=== PATIENT | female | born 1985 | race Hispanic/Latino ===

== ENCOUNTER 2023-07-30 07:50 | Emergency (ER) | payer MEDICAID, SELFPAY ==
[2023-07-30] VITALS (9 sets, daily range): BP systolic 123–176; BP diastolic 65–93; PULSE 68–72
--- NOTE | 2023-07-30 10:23 | ED.GENMED ---
History of Present Illness
General
Chief Complaint: Chest Pain
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
Exam Limitations: none
Time Seen by Provider: 07/30/23 09:21
Nursing documentation reviewed up to this point in time: agreed with
Travel History
Have you had any contact with someone who has COVID-19?: No
Do you have any symptoms of coronavirus? Fever > 100 degrees, chills, cough, shortness of breath, sore throat, loss of taste or smell, muscle aches, or headache?: No
History of Present Illness
History of Present Illness:
Patient is a 37-year-old female with a past medical history of hypertension, hyperlipidemia, renal failure on hemodialysis, hypothyroidism and anxiety who presents with 1 day of dizziness, intermittent chest pain, shortness of breath, chills and
fatigue. Patient reports that currently she has no chest pain. She denies any chest pain when she takes a deep breath. She denies a history of PE and DVT. She denies cough and fever. She reports her dizziness feels like she wants to faint,
however, she denies vision changes, focal weakness and numbness. Patient also reports that dizziness feels like a spinning sensation. She denies ear pain. She reports the chest pain comes and goes and brief episodes and it does not seem to be
associated with exertion or eating. She reports she had a dialysis treatment yesterday. She denies nausea, vomiting and diarrhea.
Past History
Past History
ED Past Medical History: GERD, HTN, IDDM, Renal failure (End stage renal disease, dialysis dependent) and Hypothyroidism
ED Past Surgical History: Urological
Social History
Tobacco: Non-smoker
Alcohol: None
Drug: None
Personal:
Living: with family
Employment: Not employed
Family History
Family History: Other (Parents are diabetics)
Review of Systems
Review of Systems
Allergies reviewed?: Yes
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
All Other Systems: ROS reviewed and negative except as documented in HPI and ROS
Constitutional: Reports fatigue and chills; Denies fever
EENT: Reports no symptoms
Respiratory: Reports trouble breathing
Cardiac: Reports chest pain
ABD/GI: Reports no symptoms
: Reports no symptoms
Musculoskeletal: Reports no symptoms
Skin: Reports no symptoms
Neurological: Reports dizzy; Denies headache
Endocrine: Reports no symptoms
Hematologic/Lymphatic: Reports no symptoms
Psychiatric: Reports no symptoms
Phy Exam
Physical Exam
Physical Exam:
Physical Exam
General: no apparent distress, not acutely ill. Comfortable appearing
Neck: supple. no meningeal signs. normal psoterior pharynx
Heart: s1/s2 regular rate and rhythm,
Lungs: no acute respiratory distress. clear bilaterally. Speaks in full sentences. Breathing comfortably. No crackles or wheezing
Abdomen: normal bowel sounds. not tender. no CVAT
Neuro: alert and orientedx3. no focal neurological deficits, 5 out of 5 strength in all extremities. Normal [id number]. Extraocular muscles intact. PERRL
Skin: no rash. Left upper extremity dialysis fistula with good thrill without overlying skin erythema or tenderness
Psychiatric: well kept. interactive and cooperative
Extremities: no edema. no calf tenderness. negative homans. good distal pulses
Scores
Heart Score for Chest Pain Patients
STEMI patient?: No
History: Slightly or Non-Suspicious
ECG: Nonspecific Repolarization
Age: </= 45 years
Risk Factors: >/= 3 Risk Factors or History of CAD
Troponin: </= Normal Limit
Heart Score for Chest Pain Patients: 3
Heart Score Risk: 2.5% MACE over next 6 weeks
Course
Orders/Labs/Results
Orders:
Orders
07/30/23 09:49
Orthostatic VS- Treatment ONCE
Test Result ONCE
07/30/23 10:12
COVID-19 Antigen Urgent
Source: Nasal Swab
Influenza A+B Rapid Molecular Urgent
LIZBETH Source: Nasal Swab
Specimen Description:
07/30/23 10:28
Electrocardiogram (*1) Urgent
Reason for Study: Chest Pain
EKG- Treatment ONCE
07/30/23 10:38
Complete Blood Count/With Diff Urgent
Comprehensive Metabolic Panel Urgent
HCG, Serum Qualitative Screen Urgent
Troponin I Urgent
07/30/23 11:01
Urinalysis Reflex To Culture Urgent
Date Specimen was Collected: 07/30/23
Time Specimen was Collected: 10:40
Urine Microscopic Reflex Cult Urgent
07/30/23 11:36
CR Chest - 2 Views Urgent
Comment:
Reason For Exam: CP
Abnormal Lab Results
07/30/23 07/30/23
10:38 11:01
RBC 3.90 L 10^6/uL
(4.20-5.40)
Hgb 11.6 L g/dL
(12.0-16.0)
Hct 34.8 L %
(37.0-47.0)
RDW 15.8 H %
(11.5-14.5)
MPV 11.7 H fL
(7.4-10.4)
Abs Immat Gran (auto) 0.1 H 10^3/uL
(0-0.05)
Absolute Eos (auto) 1.0 H 10^3/uL
(0-0.7)
Immature Gran % 0.6 H %
(0-0.5)
Lymphocytes % 15.2 L %
(20.5-51.1)
Eosinophils % 11.3 H %
(0-6)
Sodium 134 L mmol/L
(135-145)
Creatinine 5.2 H* mg/dL
(0.6-1.0)
Glucose 131 H mg/dl
(70-99)
AST 44 H U/L
(14-36)
ALT 43 H U/L
(0-35)
Alkaline Phosphatase 140 H U/L
(38-126)
Leukocyte Esterase Rfl Trace A
(Negative)
Urine Bacteria (Reflex) Few A
(Negative)
Urine Glucose Trace A
(Negative)
Urine Albumin (Reflex) 3+ A
(Neg - Trace)
07/30/23 10:38
07/30/23 10:38
Vital Signs
Initial and Last Documented VS:
Initial Vital Signs
Temp Pulse Resp BP Pulse Ox
98.6 F 70 20 123/65 100
07/30/23 08:02 07/30/23 08:02 07/30/23 08:02 07/30/23 08:02 07/30/23 08:02
Last Documented Vital Signs
Temp Pulse Resp BP Pulse Ox
98.4 F 74 12 176/93 100
07/30/23 13:42 07/30/23 13:00 07/30/23 10:15 07/30/23 13:00 07/30/23 13:00
MDM/Problems Addressed
Differential Diagnosis Includes:
Cardiac arrhythmia, dehydration, orthostatic hypotension, anemia, acute coronary syndrome, PE
MDM/Problems Addressed:
Patient presents with acute intermittent chest pain, shortness of breath and dizziness
Chronic conditions affecting care: HTN and Kidney disease
*Radiology
Radiology exam reviewed: preliminary read by ED provider (Chest x-ray read by me. No acute disease)
*Pulse Oximetry
Patient hypoxic: no
*EKG
Interpreted by ED Provider?: Yes
Interpretation: abnormal
Comparison EKG: no changes
Rate: normal
Rhythm: sinus
[place]: normal axis
QRS Pattern: left vent hypertrophy
Ischemia: no ischemia
*Collection Systems Administrator Interpretation
Rate: normal
Interpretation: normal
Rhythm: sinus
*Critical Care Note
Total Time (30-74mins, 75-104mins- exclusive of procedures): Not Applicable
Data Reviewed
Review of Other/Old Records Reveals: Testing (Cardiac echo normal from 05/2023) and Discharge Summary (Discharge summary reviewed from May 2023 when patient was admitted with dizziness and vision changes thought to be related to [id number]
blood pressure)
Source: patient and family
Patient Management
Social determinants of health affecting care: Living situation and Strong social support
Update Note
Update Note:
1:30pm patient resting comfortably for hours. No fever. No elevated white blood cell count to suggest infection. No dysuria or abdominal pain to suggest UTI. Neurological exam is normal and there is no sign of stroke. I suspect patient's blood
pressure is now elevated due to not taking her medication. Patient encouraged to take her blood pressure medication when she gets home. Patient has not had chest pain for hours and her troponin is negative, therefore, she is very unlikely to have
acute coronary syndrome. Given she has no chest pain or pleuritic chest pain, it is doubtful she has a PE.
ED Attending Note
-
Portions of this chart may have been created with voice recognition software.� Occasional wrong word or��sound alike� substitutions may have occurred due to the inherent limitations of voice recognition software.
Discharge Plan
Departure
Patient Disposition: Home (Routine Discharge)
Date of Disposition: 07/30/23
Time of Disposition: 13:23
Patient with high blood pressure during this ER visit?: Yes
Condition: Good
Covid-19: Not Applicable
Discharge Problem:
Chest pain in adult
Instructions: Chest Pain PCP Follow Up, BLOOD PRESSURE
Prescriptions:
No Action
pantoprazole 20 MG tablet,delayed release (DR/EC)
20 mg PO DAILY
sevelamer carbonate 800 mg Tablet
800 - 2,400 mg PO AC
hydroxyzine HCl 25 MG tablet
25 mg PO QIDPRN PRN (Reason: anxiety)
atenolol 50 mg Tablet
100 mg PO DAILY
levothyroxine [Synthroid] 88 mcg Tablet
88 mcg PO DAILY
multivitamin [Daily-Harjeet] Tablet
1 tab PO DAILY
cholecalciferol (vitamin D3) 50 mcg (2,000 unit) Capsule
50 mcg PO DAILY
nifedipine 30 mg Tablet Extended Release
60 mg PO BID Qty: 120 0RF
Referrals:
UNKNOWN - PT DOES,NOT KNOW [Family Provider] -
Interventions
Interventions:
*Risk Screen - Suicide Last Done: 07/30/23 13:41
*General Assessment Last Done: 07/30/23 09:42
*Neglect/Abuse Screening Last Done: 07/30/23 13:41
ED- Fall Risk Assessment Last Done: 07/30/23 10:18
*ED COVID-19 Vaccine History Last Done: 07/30/23 09:42
*Nursing Disposition Last Done: 07/30/23 13:42
ED- Cardiac Assessment Last Done: 07/30/23 10:18
Discharge Date and Time
Discharge Date/Time: 07/30/23 13:42
Print Language: LATVIAN
[2023-07-30 10:47] LABS: % Basophils 1.6 % (0-2); % Eosinophils 11.3 % (0-6); % Immature Granulocytes 0.6 % (0-0.5); % Lymphocytes 15.2 % (20.5-51.1); % Monocytes 5.3 % (1.7-9.3); Absolute Basophils 0.1 10^3/uL (0-0.2); Absolute Immature Granulocytes 0.1 10^3/uL (0-0.05); Absolute Lymphocytes 1.3 10^3/uL (1.2-3.4); Absolute Monocytes 0.5 10^3/uL (0.1-0.6); Absolute Neutrophils 5.8 10^3/uL (1.4-6.5); Hematocrit 34.8 % (37.0-47.0); Hemoglobin 11.6 g/dL (12.0-16.0); Mean Corp Hgb Conc. 33.3 g/dL (33.0-37.0); Mean Corpuscular Hgb 29.7 pg (27.0-31.0); Mean Corpuscular Volume 89.2 fL (81.0-99.0); Mean Platelet Volume 11.7 fL (7.4-10.4); Nucleated Red Blood Cells % 0.2 %; Platelet Count 175 10^3/uL (130-400); Red Cell Dist. Width 15.8 % (11.5-14.5); White Blood Cell Count 8.8 10^3/uL (4.8-10.8)
[2023-07-30 11:11] LABS: Urine Albumin 3+ (Neg - Trace); Urine Bilirubin Negative (Negative); Urine Character Clear (Clear); Urine Color Yellow; Urine Glucose Trace (Negative); Urine Ketone Negative (Negative); Urine Leukocyte Trace (Negative); Urine Nitrite Negative (Negative); Urine Occult Blood Negative (Negative); Urine Urobilinogen Negative (Neg - 1+)
[2023-07-30 11:12] LABS: COVID-19 Antigen Negative (Negative)
[2023-07-30 11:19] LABS: ALT (SGPT) 43 U/L (0-35); AST (SGOT) 44 U/L (14-36); Albumin 4.4 g/dl (3.5-5.0); Alkaline Phosphatase 140 U/L (38-126); Blood Urea Nitrogen 17 mg/dl (7-17); Calcium 9.4 mg/dl (8.4-10.2); Carbon Dioxide 26 mmol/L (22-30); Chloride 99 mmol/L (98-107); Glucose 131 mg/dl (70-99); Potassium 5.1 mmol/L (3.5-5.1); Sodium 134 mmol/L (135-145); Total Bilirubin 0.7 mg/dl (0.2-1.3); Total Protein 7.1 g/dl (6.3-8.2); eGFR 10.29
[2023-07-30 11:24] LABS: Urine Red Blood Cell 0-2 /HPF (0-2); Urine Squamous Cell 16-20 /LPF (Few)
[2023-07-30 11:24] LABS: HCG, Serum Qualitative Screen Negative
[2023-07-30 11:25] LABS: Urine Bacteria Few (Negative)
[2023-07-30 11:26] LABS: Troponin I < 0.012 ng/ml
== END 2023-07-30 13:42 | disposition home or self-care (01) ==
LOC: EMR 07:50
PROVIDERS: EMERGENCY PHYSICIAN Emergency Medicine
DX: R07.89 Other chest pain (principal); R42 Dizziness and giddiness; R06.02 Shortness of breath; R53.83 Other fatigue; R68.83 Chills (without fever); Z11.52 Encounter for screening for COVID-19; I12.0 Hypertensive chronic kidney disease with stage 5 chronic kidney disease or end stage renal disease; N18.6 End stage renal disease; Z99.2 Dependence on renal dialysis; E11.22 Type 2 diabetes mellitus with diabetic chronic kidney disease; E78.5 Hyperlipidemia, unspecified; E03.9 Hypothyroidism, unspecified; K21.9 Gastro-esophageal reflux disease without esophagitis; F41.9 Anxiety disorder, unspecified; Z79.4 Long term (current) use of insulin; Z90.5 Acquired absence of kidney
CPT/HCPCS: 99283; 71046; 80053; 81003; 81015; 84484; 84703; 85025; 87502; 87811; 93005

== ENCOUNTER 2023-09-19 17:20 | Emergency (ER) | payer MEDICAID, SELFPAY ==
[2023-09-19] VITALS (9 sets, daily range): BP systolic 109–224; BP diastolic 64–100
[2023-09-19 18:50] LABS: % Basophils 1.2 % (0-2); % Eosinophils 11.9 % (0-6); % Immature Granulocytes 0.2 % (0-0.5); % Lymphocytes 14.8 % (20.5-51.1); % Monocytes 5.4 % (1.7-9.3); % Neutrophils 66.5 % (42.2-75.2); Absolute Basophils 0.1 10^3/uL (0-0.2); Absolute Eosinophils 0.7 10^3/uL (0-0.7); Absolute Lymphocytes 0.9 10^3/uL (1.2-3.4); Absolute Monocytes 0.3 10^3/uL (0.1-0.6); Hematocrit 36.1 % (37.0-47.0); Hemoglobin 12.2 g/dL (12.0-16.0); Mean Corp Hgb Conc. 33.8 g/dL (33.0-37.0); Mean Corpuscular Hgb 29.8 pg (27.0-31.0); Mean Corpuscular Volume 88.3 fL (81.0-99.0); Mean Platelet Volume 11.2 fL (7.4-10.4); Nucleated Red Blood Cells % 0 %; Platelet Count 120 10^3/uL (130-400); Red Blood Cell Count 4.09 10^6/uL (4.20-5.40); White Blood Cell Count 6.1 10^3/uL (4.8-10.8)
[2023-09-19 19:00] LABS: ALT (SGPT) 28 U/L (0-35); AST (SGOT) 40 U/L (14-36); Albumin 4.5 g/dl (3.5-5.0); Alkaline Phosphatase 118 U/L (38-126); Blood Urea Nitrogen 19 mg/dl (7-17); Calcium 9.1 mg/dl (8.4-10.2); Carbon Dioxide 29 mmol/L (22-30); Chloride 96 mmol/L (98-107); Glucose 136 mg/dl (70-99); Sodium 135 mmol/L (135-145); Total Bilirubin 0.9 mg/dl (0.2-1.3); Total Protein 7.5 g/dl (6.3-8.2); eGFR 14.53
[2023-09-19] MEDS: PROCARDIA XL (EXTENDED RELEASE) 60 MG PO (19:35)
[2023-09-19] MEDS: CATAPRES 0.200000000000000011 MG PO (20:54)
[2023-09-19] MEDS: APRESOLINE 5 MG IV (20:55)
--- NOTE | 2023-09-19 22:58 | ED.GENMED ---
History of Present Illness
General
Chief Complaint: Blood Pressure Problem
Source: patient and family (daughter interpreting.)
Exam Limitations: none
Time Seen by Provider: 09/19/23 18:07
Travel History
Have you had any contact with someone who has COVID-19?: No
Do you have any symptoms of coronavirus? Fever > 100 degrees, chills, cough, shortness of breath, sore throat, loss of taste or smell, muscle aches, or headache?: No
History of Present Illness
History of Present Illness:
Patient to ED for high blood pressure. SHe has been seen in the ED multiple times in the past for this. Currently she is taking Atenolol 100mg in the AM, nifedipine 60mg bid. SHe is a dialysis patient. Today her BP was running high all day at
dialysis. SHe was given 0.1mg clonidine without improvement. Sent to ED for eval. On arrival she is awake and alert, reports headache. Denies any cp/pressure, SOB.
Past History
Past History
ED Past Medical History: GERD, HTN, IDDM, Renal failure (End stage renal disease, dialysis dependent) and Hypothyroidism
ED Past Surgical History: Urological (left nephrectomy)
Social History
Tobacco: Non-smoker
Alcohol: None
Drug: None
Personal:
Living: with family
Employment: Not employed
Family History
Family History: Other (Parents are diabetics)
Review of Systems
Review of Systems
Allergies reviewed?: Yes
All Other Systems: ROS reviewed and negative except as documented in HPI and ROS
Constitutional: Reports no symptoms
EENT: Reports no symptoms
Respiratory: Reports no symptoms
Cardiac: Reports other (hypertension)
ABD/GI: Reports no symptoms
: Reports no symptoms
Musculoskeletal: Reports no symptoms
Skin: Reports no symptoms
Neurological: Reports headache
Psychiatric: Reports no symptoms
Phy Exam
General Physical Exam
General Presentation: well appearing and no apparent distress
General age: appears stated age
General Skin: warm and dry
General Habitus: normal
General Mental: alert
General Hydration: appears well hydrated
Cardiovascular Exam
Cardiovascular Exam: regular rate/rhythm and no edema
Pulmonary Exam
Pulmonary Exam: lungs clear and no respiratory distress
Gastrointestinal Exam
Gastrointestinal Exam: normal bowel sounds, non tender, soft and no organomegaly
Musculoskeletal Exam
Musculoskeletal Exam: full ROM and neuro vasc intact
Skin Exam
Skin Exam: normal color, warm/dry and no rash
Psychiatric Exam
Psychiatric Exam: normal mood/affect
Course
Orders/Labs/Results
Orders:
Orders
09/19/23 17:25
Electrocardiogram (*1) Urgent
Reason for Study: Hypertension, Benign
EKG- Treatment ONCE
09/19/23 18:17
Cardiac Monitoring- Treatment ONCE
09/19/23 18:26
NIFEdipine EXTENDED RELEASE [Procardia Xl (Extended Release)] 60 mg PO NOW STA
09/19/23 18:34
Complete Blood Count/With Diff Urgent
Comprehensive Metabolic Panel Urgent
09/19/23 20:31
Clonidine [Catapres] 0.2 mg PO NOW STA
09/19/23 20:33
HydrALAZINE [Apresoline] 5 mg IV NOW STA
Abnormal Lab Results
09/19/23
18:34
RBC 4.09 L 10^6/uL
(4.20-5.40)
Hct 36.1 L %
(37.0-47.0)
RDW 15.0 H %
(11.5-14.5)
Plt Count 120 L 10^3/uL
(130-400)
MPV 11.2 H fL
(7.4-10.4)
Absolute Lymphs (auto) 0.9 L 10^3/uL
(1.2-3.4)
Lymphocytes % 14.8 L %
(20.5-51.1)
Eosinophils % 11.9 H %
(0-6)
Chloride 96 L mmol/L
(98-107)
BUN 19 H mg/dl
(7-17)
Creatinine 3.9 H mg/dL
(0.6-1.0)
Glucose 136 H mg/dl
(70-99)
AST 40 H U/L
(14-36)
09/19/23 18:34
09/19/23 18:34
Vital Signs
Initial and Last Documented VS:
Initial Vital Signs
Temp Pulse Resp BP Pulse Ox
98.3 F 67 18 210/100 100
09/19/23 17:21 09/19/23 17:21 09/19/23 17:21 09/19/23 17:21 09/19/23 17:21
Last Documented Vital Signs
Temp Pulse Resp BP Pulse Ox
98.3 F 69 15 111/64 100
09/19/23 17:21 09/19/23 21:37 09/19/23 21:37 09/19/23 22:00 09/19/23 21:37
*Critical Care Note
Total Time (30-74mins, 75-104mins- exclusive of procedures): Not Applicable
Update Note
Update Note:
Given PM dose of nifedipine on arrival to ED. No change in BP. Given additional 0.2mg catapress po, 5mg hydralazine IV with return to normotensive readings. Discharge BP 112/68, HR 70. Headache resolved. Spoke with her daughter and she will
follow up with nephrolology in the AM. Given instructions on s/s to return to ED and she is agreeable to plan.
ED Attending Note
-
Portions of this chart may have been created with voice recognition software.� Occasional wrong word or��sound alike� substitutions may have occurred due to the inherent limitations of voice recognition software.
Discharge Plan
Departure
Patient Disposition: Home (Routine Discharge)
Date of Disposition: 09/19/23
Time of Disposition: 22:05
Patient with high blood pressure during this ER visit?: No
Condition: Good
Covid-19: Not Applicable
Discharge Problem:
Hypertension
Instructions: High Blood Pressure (DC)
Prescriptions:
No Action
pantoprazole 20 MG tablet,delayed release (DR/EC)
20 mg PO DAILY
sevelamer carbonate 800 mg Tablet
800 - 2,400 mg PO AC
hydroxyzine HCl 25 MG tablet
25 mg PO QIDPRN PRN (Reason: anxiety)
atenolol 50 mg Tablet
100 mg PO DAILY
levothyroxine [Synthroid] 88 mcg Tablet
88 mcg PO DAILY
multivitamin [Daily-Harjeet] Tablet
1 tab PO DAILY
cholecalciferol (vitamin D3) 50 mcg (2,000 unit) Capsule
50 mcg PO DAILY
nifedipine 30 mg Tablet Extended Release
60 mg PO BID Qty: 120 0RF
Referrals:
Susannah Emerson PA [Family Provider] - Tomorrow
Activity Restrictions/Additional Instructions:
Return to the emergency department immediately for any changes in/worsening of your symptoms.
Interventions
Interventions:
*Risk Screen - Suicide Last Done: 09/19/23 17:24
*General Assessment Last Done: 09/19/23 17:24
*Neglect/Abuse Screening Last Done: 09/19/23 17:24
ED- Fall Risk Assessment Last Done: 09/19/23 22:05
*ED COVID-19 Vaccine History Last Done: 09/19/23 22:05
*Nursing Disposition Last Done: 09/19/23 22:29
ED- Cardiac Assessment Last Done: 09/19/23 18:56
ED- Neurological Assessment Last Done: 09/19/23 18:56
ED- Pulmonary Assessment Last Done: 09/19/23 18:56
Discharge Date and Time
Discharge Date/Time: 09/19/23 22:10
== END 2023-09-19 22:10 | disposition home or self-care (01) ==
LOC: EMR 17:20
PROVIDERS: Nurse Practitioner; EMERGENCY PHYSICIAN Emergency Medicine; FAMILY PHYSICIAN Physician Assistant
DX: I12.0 Hypertensive chronic kidney disease with stage 5 chronic kidney disease or end stage renal disease (principal); N18.6 End stage renal disease; Z99.2 Dependence on renal dialysis
CPT/HCPCS: 99284; 96374; 80053; 85025; 93005

== ENCOUNTER 2023-09-23 16:36 | Emergency (ER) | payer MEDICAID, SELFPAY ==
[2023-09-23 16:38] VITALS: BP 153/78
[2023-09-23 17:38] VITALS: BMI 25.2
[2023-09-23 18:02] VITALS: BP 172/85
[2023-09-23 18:08] LABS: % Basophils 1.7 % (0-2); % Eosinophils 9.3 % (0-6); % Immature Granulocytes 0.3 % (0-0.5); % Lymphocytes 20.6 % (20.5-51.1); % Monocytes 7.9 % (1.7-9.3); % Neutrophils 60.2 % (42.2-75.2); Absolute Basophils 0.1 10^3/uL (0-0.2); Absolute Eosinophils 0.7 10^3/uL (0-0.7); Absolute Lymphocytes 1.4 10^3/uL (1.2-3.4); Absolute Monocytes 0.6 10^3/uL (0.1-0.6); Absolute Neutrophils 4.2 10^3/uL (1.4-6.5); Hematocrit 31.7 % (37.0-47.0); Hemoglobin 10.7 g/dL (12.0-16.0); Mean Corp Hgb Conc. 33.8 g/dL (33.0-37.0); Mean Corpuscular Hgb 29.5 pg (27.0-31.0); Mean Corpuscular Volume 87.3 fL (81.0-99.0); Mean Platelet Volume 11.5 fL (7.4-10.4); Nucleated Red Blood Cells % 0 %; Platelet Count 142 10^3/uL (130-400); Red Blood Cell Count 3.63 10^6/uL (4.20-5.40); Red Cell Dist. Width 14.7 % (11.5-14.5)
[2023-09-23 18:21] LABS: ALT (SGPT) 28 U/L (0-35); AST (SGOT) 39 U/L (14-36); Albumin 4.6 g/dl (3.5-5.0); Alkaline Phosphatase 113 U/L (38-126); Blood Urea Nitrogen 9 mg/dl (7-17); Carbon Dioxide 29 mmol/L (22-30); Chloride 94 mmol/L (98-107); Estimated Creatinine Clearance 20 ml/min; Glucose 105 mg/dl (70-99); Sodium 134 mmol/L (135-145); Total Bilirubin 0.8 mg/dl (0.2-1.3); Total Protein 7.2 g/dl (6.3-8.2); eGFR 20.74
[2023-09-23 18:32] LABS: Troponin I < 0.012 ng/ml
--- NOTE | 2023-09-23 18:37 | ED.GENMED ---
History of Present Illness
General
Chief Complaint: Chest Pain
Source: patient and family
Exam Limitations: none
Time Seen by Provider: 09/23/23 17:52
Nursing documentation reviewed up to this point in time: agreed with
Travel History
Have you had any contact with someone who has COVID-19?: No
Do you have any symptoms of coronavirus? Fever > 100 degrees, chills, cough, shortness of breath, sore throat, loss of taste or smell, muscle aches, or headache?: Yes
Symptoms:: chills, headache
History of Present Illness
History of Present Illness:
37-year-old female presents emergency department due to nausea, sweats, headaches, midsternal chest pain and epigastric pain since yesterday. No fevers.
Past History
Past History
ED Past Medical History: GERD, HTN, IDDM, Renal failure (End stage renal disease, dialysis dependent) and Hypothyroidism
ED Past Surgical History: Urological (left nephrectomy)
Social History
Tobacco: Non-smoker
Alcohol: None
Drug: None
Personal:
Living: with family
Employment: Not employed
Family History
Family History: Other (Parents are diabetics)
Review of Systems
Review of Systems
Allergies reviewed?: Yes
All Other Systems: Not applicable
Constitutional: Reports no symptoms
EENT: Reports no symptoms
Respiratory: Reports no symptoms
Cardiac: Reports chest pain
ABD/GI: Reports abdominal pain and nausea
: Reports no symptoms
Musculoskeletal: Reports no symptoms
Skin: Reports no symptoms
Neurological: Reports no symptoms
Endocrine: Reports no symptoms
Hematologic/Lymphatic: Reports no symptoms
Psychiatric: Reports no symptoms
Phy Exam
Physical Exam
Physical Exam:
Physical Exam
General: no apparent distress, not acutely ill
Neck: supple. no meningeal signs. normal posterior pharynx
Heart: s1/s2 regular rate and rhythm, no murmur. equal radial
pulses.
HEENT: Pupils equal round reactive to light, EOMI
Lungs: no acute respiratory distress. clear bilaterally
Abdomen: normal bowel sounds. Mild epigastric tenderness. No CVAT
Neuro: alert and oriented. no focal neurological deficits cranial nerves II through XII intact
Skin: no rash
Psychiatric: well kept. interactive and cooperative
Extremities: no edema. no calf tenderness. negative homans. good distal pulses
Scores
Heart Score for Chest Pain Patients
STEMI patient?: No
History: Slightly or Non-Suspicious
ECG: Normal
Age: >45 - <65 years
Risk Factors: No Risk Factors
Troponin: </= Normal Limit
Heart Score for Chest Pain Patients: 1
Heart Score Risk: 2.5% MACE over next 6 weeks
Course
Orders/Labs/Results
Orders:
Orders
09/23/23 16:37
Electrocardiogram (*1) Urgent
Reason for Study: Chest Pain
09/23/23 16:38
EKG- Treatment ONCE
09/23/23 18:01
Complete Blood Count/With Diff Urgent
Comprehensive Metabolic Panel Urgent
Lipase Urgent
Comment: ADDON
Troponin I Urgent
09/23/23 18:35
Add On- LAB Urgent
Tests Added?: lipase
09/23/23 18:36
US Abdomen Complete/Upper Urgent
Comment:
Reason For Exam: epigastric pain
09/23/23 19:10
Morphine Sulfate 4 mg IV NOW STA
Ondansetron Injectable [Zofran] 4 mg IV NOW STA
09/23/23 19:16
UA Reflex to Culture [Urinalysis Reflex To Culture] Urgent
Date Specimen was Collected: 09/23/23
Time Specimen was Collected: 19:13
Urine Microscopic Reflex Cult Urgent
09/23/23 21:29
Troponin I Urgent
Abnormal Lab Results
09/23/23 09/23/23
18:01 19:16
RBC 3.63 L 10^6/uL
(4.20-5.40)
Hgb 10.7 L g/dL
(12.0-16.0)
Hct 31.7 L %
(37.0-47.0)
RDW 14.7 H %
(11.5-14.5)
MPV 11.5 H fL
(7.4-10.4)
Eosinophils % 9.3 H %
(0-6)
Sodium 134 L mmol/L
(135-145)
Chloride 94 L mmol/L
(98-107)
Creatinine 2.9 H mg/dL
(0.6-1.0)
Glucose 105 H mg/dl
(70-99)
AST 39 H U/L
(14-36)
Leukocyte Esterase Rfl Trace A
(Negative)
Urine Bacteria (Reflex) Few A
(Negative)
Urine Glucose 1+ A
(Negative)
Urine Albumin (Reflex) 3+ A
(Neg - Trace)
09/23/23 18:01
09/23/23 18:01
Vital Signs
Initial and Last Documented VS:
Initial Vital Signs
Temp Pulse Resp BP Pulse Ox
98.7 F 76 20 153/78 100
09/23/23 16:38 09/23/23 16:38 09/23/23 16:38 09/23/23 16:38 09/23/23 16:38
Last Documented Vital Signs
Temp Pulse Resp BP Pulse Ox
98.7 F 77 15 186/90 99
09/23/23 16:38 09/23/23 22:15 09/23/23 22:15 09/23/23 21:00 09/23/23 22:15
MDM/Problems Addressed
Differential Diagnosis Includes:
Cholecystitis, ACS
MDM/Problems Addressed:
37-year-old female with epigastric pain, no signs of AAA, cholecystitis or ACS. Patient feels improved after IV fluids. Possible viral cause. Stable for discharge.
Chronic conditions affecting care: HTN and Kidney disease
Acute Exacerbation and/or Progression of Chronic Illness: HTN and Kidney disease
*Radiology
Radiology exam reviewed: radiology read reviewed (Ultrasound abdomen no acute findings)
*Pulse Oximetry
Patient hypoxic: no
*EKG
Interpreted by ED Provider?: Yes
EKG Intrepretation Date: 09/23/23
EKG Intrepretation Time: 16:39
Interpretation: abnormal
Comparison EKG: no changes
Heart Rate: 77
Rate: normal
Rhythm: sinus
[place]: normal axis
Interval: long QT
QRS Pattern: normal QRS
Ischemia: no ischemia
*Admissions Nurse Interpretation
Rate: Admissions Nurse- N/A
*Critical Care Note
Total Time (30-74mins, 75-104mins- exclusive of procedures): Not Applicable
Patient Management
Social determinants of health affecting care: Living situation
Escalation/DeEscalation of care consider admission/obs:
Admit not indicated
ED Attending Note
-
Portions of this chart may have been created with voice recognition software.� Occasional wrong word or��sound alike� substitutions may have occurred due to the inherent limitations of voice recognition software.
Discharge Plan
Departure
Patient Disposition: Home (Routine Discharge)
Date of Disposition: 09/23/23
Time of Disposition: 22:15
Patient with high blood pressure during this ER visit?: Yes
Condition: Good
Discharge Problem:
Epigastric abdominal pain
Instructions: Abdominal Pain, Adult ED, Chest Pain PCP Follow Up, BLOOD PRESSURE
Prescriptions:
No Action
pantoprazole 20 MG tablet,delayed release (DR/EC)
20 mg PO DAILY
sevelamer carbonate 800 mg Tablet
800 - 2,400 mg PO AC
hydroxyzine HCl 25 MG tablet
25 mg PO QIDPRN PRN (Reason: anxiety)
atenolol 50 mg Tablet
100 mg PO DAILY
levothyroxine [Synthroid] 88 mcg Tablet
88 mcg PO DAILY
multivitamin [Daily-Harjeet] Tablet
1 tab PO DAILY
cholecalciferol (vitamin D3) 50 mcg (2,000 unit) Capsule
50 mcg PO DAILY
nifedipine 30 mg Tablet Extended Release
60 mg PO BID Qty: 120 0RF
Referrals:
Jose Mayo MD [Family Provider] - Call in 1-3 days for appt
Interventions
Interventions:
*Risk Screen - Suicide Last Done: 09/23/23 17:39
*General Assessment Last Done: 09/23/23 17:39
*Neglect/Abuse Screening Last Done: 09/23/23 17:39
ED- Fall Risk Assessment Last Done: 09/23/23 17:54
*ED COVID-19 Vaccine History Last Done: 09/23/23 17:39
*Nursing Disposition Last Done: 09/23/23 22:30
ED- Cardiac Assessment Last Done: 09/23/23 17:54
Discharge Date and Time
Discharge Date/Time: 09/23/23 22:30
[2023-09-23 19:07] VITALS: BP 178/89
[2023-09-23] MEDS: MORPHINE SULFATE 4 MG IV (19:13)
[2023-09-23] MEDS: ZOFRAN 4 MG IV (19:13)
[2023-09-23 19:21] LABS: Lipase 95 U/L (23-300)
[2023-09-23 19:24] LABS: Urine Albumin 3+ (Neg - Trace); Urine Bilirubin Negative (Negative); Urine Character Clear (Clear); Urine Color Yellow; Urine Glucose 1+ (Negative); Urine Ketone Negative (Negative); Urine Leukocyte Trace (Negative); Urine Nitrite Negative (Negative); Urine Occult Blood Negative (Negative); Urine Urobilinogen Negative (Neg - 1+)
[2023-09-23 19:36] LABS: Urine Bacteria Few (Negative); Urine Red Blood Cell 0-2 /HPF (0-2); Urine Squamous Cell >30 /LPF (Few)
[2023-09-23 21:00] VITALS: BP 186/90
[2023-09-23 21:58] LABS: Troponin I < 0.012 ng/ml
== END 2023-09-23 22:30 | disposition home or self-care (01) ==
LOC: EMR 16:36
PROVIDERS: EMERGENCY PHYSICIAN Emergency Medicine; FAMILY PHYSICIAN Family Medicine
DX: R10.13 Epigastric pain (principal); R10.9 Unspecified abdominal pain; R11.0 Nausea; R51.9 Headache, unspecified; R07.2 Precordial pain; R07.9 Chest pain, unspecified; I12.0 Hypertensive chronic kidney disease with stage 5 chronic kidney disease or end stage renal disease; N18.6 End stage renal disease
CPT/HCPCS: 99285; 96374; 96375; 76700; 80053; 81003; 81015; 83690; 84484; 85025; 93005

== ENCOUNTER 2024-01-16 05:19 | Emergency (ER) | payer MEDICAID, SELFPAY ==
[2024-01-16 05:21] VITALS: BP 106/60
[2024-01-16] MEDS: TYLENOL 1000 MG PO (07:04)
--- NOTE | 2024-01-16 07:16 | ED.GENMED ---
History of Present Illness
General
Chief Complaint: Headache
Source: patient and records
Exam Limitations: none
Time Seen by Provider: 01/16/24 06:11
Nursing documentation reviewed up to this point in time: agreed with
History of Present Illness
History of Present Illness:
38-year-old female ESRD Tuesday history of hypertension she has been compliant with her dialysis apparently few hours ago developed headache, cramping in her feet and blurry vision, palpitations, history obtained through nurses notes
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
Past History
Past History
ED Past Medical History: GERD, HTN, IDDM, Renal failure (End stage renal disease, dialysis dependent) and Hypothyroidism
ED Past Surgical History: Urological (left nephrectomy)
Social History
Tobacco: Non-smoker
Alcohol: None
Drug: None
Personal:
Living: with family
Employment: Not employed
Family History
Family History: Other (Parents are diabetics)
Review of Systems
Review of Systems
All Other Systems: Not applicable
Constitutional: Denies fever
EENT: Reports no symptoms
Respiratory: Denies trouble breathing
Cardiac: Reports palpitations
ABD/GI: Reports no symptoms
Musculoskeletal: Reports muscle stiffness
Neurological: Reports headache and other (Blurry vision)
Phy Exam
Physical Exam
Physical Exam:
Physical Exam
General: Chronically ill female nontoxic
Neck: No jaundice
Heart: Regular
Lungs: no acute respiratory distress. clear bilaterally
Abdomen: Not
Neuro: alert and oriented. no focal neurological deficits
Skin: no rash
Psychiatric: Cooperative
Extremities: Fistula left upper extremity positive
Course
Orders/Labs/Results
Orders:
Orders
01/16/24 06:59
Acetaminophen [Tylenol] 1,000 mg PO NOW STA
01/16/24 07:00
Electrocardiogram (*1) Urgent
Reason for Study: Palpitations
EKG- Treatment ONCE
01/16/24 07:21
CT Head W/o Iv Contrast Urgent
Comment:
Reason For Exam: headahce
01/16/24 07:38
Test Result ONCE
01/16/24 07:49
HCG, Urine Qualitative Screen Stat
Date Specimen was Collected: 01/16/24
Time Specimen was Collected: 07:48
Vital Signs
Initial and Last Documented VS:
Initial Vital Signs
Temp Pulse Resp BP Pulse Ox
98.1 F 100 22 106/60 100
01/16/24 05:21 01/16/24 05:21 01/16/24 05:21 01/16/24 05:21 01/16/24 05:21
Last Documented Vital Signs
Temp Pulse Resp BP Pulse Ox
98.1 F 100 22 106/60 100
01/16/24 05:21 01/16/24 05:21 01/16/24 05:21 01/16/24 05:21 01/16/24 05:21
MDM/Problems Addressed
Differential Diagnosis Includes:
Hypertensive urgency electrolyte abnormality intracerebral hemorrhage
MDM/Problems Addressed:
Headache
Chronic conditions affecting care: HTN and Kidney disease
Acute Exacerbation and/or Progression of Chronic Illness: HTN and Kidney disease
*Radiology
Radiology exam reviewed: preliminary read by ED provider
*Pulse Oximetry
Patient hypoxic: no
*EKG
Interpreted by ED Provider?: Yes
Interpretation: normal
Comparison EKG: no comparison EKG present
Heart Rate: 78
Rate: normal
Rhythm: sinus
Ischemia: no ischemia
*Executive Officer Interpretation
Rate: normal
Interpretation: normal
Heart Rate: 78
Rhythm: sinus
*Critical Care Note
Total Time (30-74mins, 75-104mins- exclusive of procedures): Not Applicable
Data Reviewed
Review of Other/Old Records Reveals: Labs and Progress Notes
Source: patient
Update Note
Update Note:
Patient nontoxic-appearing blood pressure well-controlled EKG without any signs of significant hyperkalemia at this point, will try Tylenol CT of the head, with an eye towards getting her to her 1030 dialysis appointment in [place] at [facility]
8:[address] noted
ED Attending Note
-
Portions of this chart may have been created with voice recognition software.� Occasional wrong word or��sound alike� substitutions may have occurred due to the inherent limitations of voice recognition software.
Discharge Plan
Departure
Patient Disposition: Home (Routine Discharge)
Date of Disposition: 01/16/24
Time of Disposition: 08:37
Patient with high blood pressure during this ER visit?: No
Condition: Good
Discharge Problem:
Headache
Instructions: Headache, Adult (DC)
Prescriptions:
No Action
pantoprazole 20 MG tablet,delayed release (DR/EC)
20 mg PO DAILY
sevelamer carbonate 800 mg Tablet
800 - 2,400 mg PO AC
hydroxyzine HCl 25 MG tablet
25 mg PO QIDPRN PRN (Reason: anxiety)
atenolol 50 mg Tablet
100 mg PO DAILY
levothyroxine [Synthroid] 88 mcg Tablet
88 mcg PO DAILY
multivitamin [Daily-Harjeet] Tablet
1 tab PO DAILY
cholecalciferol (vitamin D3) 50 mcg (2,000 unit) Capsule
50 mcg PO DAILY
nifedipine 30 mg Tablet Extended Release
60 mg PO BID Qty: 120 0RF
Referrals:
Jose Mayo MD [Family Provider] - Next open appointment
Activity Restrictions/Additional Instructions:
Acetaminophen every 4-6 hours for headache
Go to dialysis today at [place]
Interventions
Interventions:
*Risk Screen - Suicide Last Done: 01/16/24 05:21
*General Assessment Last Done: 01/16/24 05:49
*Neglect/Abuse Screening Last Done: 01/16/24 05:21
ED- Fall Risk Assessment Last Done: 01/16/24 05:49
*ED COVID-19 Vaccine History Last Done: 01/16/24 05:49
ED- Neurological Assessment Last Done: 01/16/24 05:49
Discharge Date and Time
Print Language: [place] ISLAND[place]
[2024-01-16 07:40] VITALS: BP 129/72
[2024-01-16 08:01] LABS: HCG, Urine Qualitative Screen Negative
[2024-01-16 08:56] VITALS: BP 128/76
== END 2024-01-16 08:57 | disposition home or self-care (01) ==
LOC: EMR 05:19
PROVIDERS: EMERGENCY PHYSICIAN Emergency Medicine; FAMILY PHYSICIAN Family Medicine
DX: R51.9 Headache, unspecified (principal); R00.2 Palpitations; R25.2 Cramp and spasm; H53.8 Other visual disturbances; E11.22 Type 2 diabetes mellitus with diabetic chronic kidney disease; K21.9 Gastro-esophageal reflux disease without esophagitis; E03.9 Hypothyroidism, unspecified; I12.0 Hypertensive chronic kidney disease with stage 5 chronic kidney disease or end stage renal disease; N18.6 End stage renal disease; Z99.2 Dependence on renal dialysis; Z79.4 Long term (current) use of insulin; Z90.5 Acquired absence of kidney
CPT/HCPCS: 99284; 70450; 81025; 93005

== ENCOUNTER → 2024-01-28 08:21 | Outpatient (REF) | payer MEDICAID, SELFPAY ==
[2024-01-28 10:20] LABS: % Basophils 1.1 % (0-2); % Eosinophils 7.5 % (0-6); % Immature Granulocytes 0.6 % (0-0.5); % Lymphocytes 20.9 % (20.5-51.1); % Monocytes 3.9 % (1.7-9.3); Absolute Basophils 0.1 10^3/uL (0-0.2); Absolute Eosinophils 0.5 10^3/uL (0-0.7); Absolute Lymphocytes 1.3 10^3/uL (1.2-3.4); Absolute Monocytes 0.3 10^3/uL (0.1-0.6); Absolute Neutrophils 4.2 10^3/uL (1.4-6.5); Hematocrit 35.7 % (37.0-47.0); Hemoglobin 12.2 g/dL (12.0-16.0); Mean Corp Hgb Conc. 34.2 g/dL (33.0-37.0); Mean Corpuscular Hgb 31.5 pg (27.0-31.0); Mean Corpuscular Volume 92.2 fL (81.0-99.0); Mean Platelet Volume 10.4 fL (7.4-10.4); Nucleated Red Blood Cells % 0.3 %; Platelet Count 201 10^3/uL (130-400); Red Blood Cell Count 3.87 10^6/uL (4.20-5.40); Red Cell Dist. Width 13.1 % (11.5-14.5); White Blood Cell Count 6.4 10^3/uL (4.8-10.8)
[2024-01-28 13:11] LABS: Glycohemoglobin (HgbA1c) 5.2 % (4.0-5.6)
== END ==
LOC: REG 08:21
PROVIDERS: ATTENDING PHYSICIAN Physician Assistant
DX: Z99.2 Dependence on renal dialysis (principal); R89.4 Abnormal immunological findings in specimens from other organs, systems and tissues; R13.10 Dysphagia, unspecified; N80.129 Deep endometriosis of ovary, unspecified ovary; N18.6 End stage renal disease; K21.9 Gastro-esophageal reflux disease without esophagitis; I12.9 Hypertensive chronic kidney disease with stage 1 through stage 4 chronic kidney disease, or unspecified chronic kidney disease; F41.9 Anxiety disorder, unspecified; F33.0 Major depressive disorder, recurrent, mild; E11.22 Type 2 diabetes mellitus with diabetic chronic kidney disease; E03.9 Hypothyroidism, unspecified
CPT/HCPCS: 36415; 83036; 85025

== ENCOUNTER → 2024-02-11 08:02 | Outpatient (REF) | payer MEDICAID, SELFPAY ==
[2024-02-11 08:53] LABS: % Basophils 1.3 % (0-2); % Eosinophils 8.6 % (0-6); % Immature Granulocytes 0.3 % (0-0.5); % Lymphocytes 20.3 % (20.5-51.1); % Monocytes 6.5 % (1.7-9.3); Absolute Basophils 0.1 10^3/uL (0-0.2); Absolute Eosinophils 0.6 10^3/uL (0-0.7); Absolute Lymphocytes 1.5 10^3/uL (1.2-3.4); Absolute Monocytes 0.5 10^3/uL (0.1-0.6); Absolute Neutrophils 4.5 10^3/uL (1.4-6.5); Hematocrit 39.5 % (37.0-47.0); Hemoglobin 13.5 g/dL (12.0-16.0); Mean Corp Hgb Conc. 34.2 g/dL (33.0-37.0); Mean Corpuscular Volume 96.6 fL (81.0-99.0); Mean Platelet Volume 10.8 fL (7.4-10.4); Nucleated Red Blood Cells % 0 %; Platelet Count 145 10^3/uL (130-400); Red Blood Cell Count 4.09 10^6/uL (4.20-5.40); White Blood Cell Count 7.1 10^3/uL (4.8-10.8)
[2024-02-11 09:26] LABS: ALT (SGPT) 41 U/L (0-35); AST (SGOT) 43 U/L (14-36); Albumin 5.1 g/dl (3.5-5.0); Alkaline Phosphatase 126 U/L (38-126); Blood Urea Nitrogen 29 mg/dl (7-17); Calcium 10.3 mg/dl (8.4-10.2); Carbon Dioxide 27 mmol/L (22-30); Chloride 96 mmol/L (98-107); Glucose 99 mg/dl (70-99); HDL Cholesterol 77 mg/dl; LDL Cholesterol, Calculated 109 mg/dl; Potassium 6.4 mmol/L (3.5-5.1); Sodium 137 mmol/L (135-145); Total Cholesterol 219 mg/dl (50-199); Total Protein 8.1 g/dl (6.3-8.2); Triglyceride 169 mg/dl (10-149); Very Low Density Lipoprotein 33 mg/dl (0-30); eGFR 8.44
== END ==
LOC: REG 08:02
PROVIDERS: ATTENDING PHYSICIAN Physician Assistant
DX: N18.6 End stage renal disease (principal); Z99.2 Dependence on renal dialysis; N80.129 Deep endometriosis of ovary, unspecified ovary; K21.9 Gastro-esophageal reflux disease without esophagitis; I12.9 Hypertensive chronic kidney disease with stage 1 through stage 4 chronic kidney disease, or unspecified chronic kidney disease; F41.9 Anxiety disorder, unspecified; F33.0 Major depressive disorder, recurrent, mild; E11.22 Type 2 diabetes mellitus with diabetic chronic kidney disease; E03.9 Hypothyroidism, unspecified
CPT/HCPCS: 36415; 80053; 80061; 85025

== ENCOUNTER 2024-02-26 11:36 | Emergency (ER) | payer MEDICAID, SELFPAY ==
[2024-02-26 11:41] VITALS: BP 110/78
--- NOTE | 2024-02-26 13:23 | ED.GENMED ---
History of Present Illness
General
Chief Complaint: Catheter/Tube Problem
Time Seen by Provider: 02/26/24 12:55
History of Present Illness
History of Present Illness:
38-year-old with history of end-stage renal disease (HD MWF) presenting for concern of clot to the left upper extremity fistula. Notes that she got dialysis on Tuesday without issue, however when she woke up this morning, did not feel it pulsating.
Denies any significant pain to the area. Denies any additional acute medical complaints such as chest pain or difficulty breathing. Denies abdominal pain or GI symptoms. Denies fever or infectious symptoms. Denies additional acute medical
complaints.
Past History
Past History
ED Past Medical History: GERD, HTN, IDDM, Renal failure (End stage renal disease, dialysis dependent) and Hypothyroidism
ED Past Surgical History: Urological (left nephrectomy)
Social History
Tobacco: Non-smoker
Alcohol: None
Drug: None
Personal:
Living: with family
Employment: Not employed
Family History
Family History: Other (Parents are diabetics)
Phy Exam
Physical Exam
Physical Exam:
General: Well-appearing, no clinical signs of dehydration, nontoxic and in no acute distress
HEENT: protecting airway
Neck: appears supple
CV: Normal heart rate
Resp: No accessory muscle use, no increased work of breathing
Abd: Nondistended
Extremities: Left upper extremity fistula graft. No thrill overlying the graft, however distal to the graft, palpable pulse
Neuro: alert, no focal neurologic deficit
: deferred
Rectal: deferred
Psych: Normal affect
Skin: Intact
Course
Orders/Labs/Results
Orders:
Orders
02/26/24 13:11
Hemodialysis Graft US [US Hemodialysis Graft] Urgent
Comment:
Reason For Exam: L-uppe extremity fistula, suspected clot
02/26/24 14:03
Basic Metabolic Panel Urgent
Abnormal Lab Results
02/26/24
14:03
Chloride 94 L mmol/L
(98-107)
BUN 54 H mg/dl
(7-17)
Creatinine 9.1 H* mg/dL
(0.6-1.0)
02/26/24 13:23
02/26/24 14:03
Vital Signs
Initial and Last Documented VS:
Initial Vital Signs
Temp Pulse Resp BP Pulse Ox
97.4 F 92 17 110/78 100
02/26/24 11:41 02/26/24 11:41 02/26/24 11:41 02/26/24 11:41 02/26/24 11:41
Last Documented Vital Signs
Temp Pulse Resp BP Pulse Ox
97.4 F 90 17 108/71 100
02/26/24 11:41 02/26/24 13:32 02/26/24 11:41 02/26/24 13:37 02/26/24 13:32
MDM/Problems Addressed
MDM/Problems Addressed:
38-year-old female history of end-stage renal disease (HD MWF) presenting for concern of clot to left upper extremity fistula. Vital signs are normal.
On exam patient is well-appearing, no acute distress or discomfort. She is afebrile, nontoxic. On examination of the left upper extremity, she does have evidence of a fistula graft however unable to palpate a thrill. There is palpable pulse
distal to the graft region. Concern for occlusion. Will obtain ultrasound imaging
16:10 -ultrasound is consistent with occlusion to the fistula. In discussion with IR, reports they will call her in the morning time to schedule her to get it declotted. Patient remained stable, feel that this is a reasonable plan. Patient's
dialysis is at 11 AM tomorrow. Advise calling her dialysis center to get a later appointment. Return precautions discussed and patient
*Critical Care Note
Total Time (30-74mins, 75-104mins- exclusive of procedures): Not Applicable
ED Attending Note
-
Portions of this chart may have been created with voice recognition software.� Occasional wrong word or��sound alike� substitutions may have occurred due to the inherent limitations of voice recognition software.
Discharge Plan
Departure
Prescriptions:
No Action
pantoprazole 20 MG tablet,delayed release (DR/EC)
20 mg PO DAILY
sevelamer carbonate 800 mg Tablet
800 - 2,400 mg PO AC
hydroxyzine HCl 25 MG tablet
25 mg PO QIDPRN PRN (Reason: anxiety)
atenolol 50 mg Tablet
100 mg PO DAILY
levothyroxine [Synthroid] 88 mcg Tablet
88 mcg PO DAILY
multivitamin [Daily-Harjeet] Tablet
1 tab PO DAILY
cholecalciferol (vitamin D3) 50 mcg (2,000 unit) Capsule
50 mcg PO DAILY
nifedipine 30 mg Tablet Extended Release
60 mg PO BID Qty: 120 0RF
acetaminophen [Tylenol] 325 mg tablet
650 mg PO Q6H PRN (Reason: Pain) Qty: 30 0RF
Referrals:
Susannah Emerson PA [Family Provider] -
Interventions
Interventions:
*Risk Screen - Suicide Last Done: 02/26/24 13:32
*General Assessment Last Done: 02/26/24 13:32
*Neglect/Abuse Screening Last Done: 02/26/24 13:32
ED- Fall Risk Assessment Last Done: 02/26/24 13:41
*ED COVID-19 Vaccine History Last Done: 02/26/24 13:32
OW-Czvbbt-Eoubwyuigc Assessment Last Done: 02/26/24 13:32
ED-Female Genitourinary Assessment Last Done: 02/26/24 13:32
Discharge Date and Time
Print Language: DIVEHI
[2024-02-26 13:37] VITALS: BP 108/71
[2024-02-26 14:27] LABS: Blood Urea Nitrogen 54 mg/dl (7-17); Calcium 9.6 mg/dl (8.4-10.2); Carbon Dioxide 24 mmol/L (22-30); Chloride 94 mmol/L (98-107); Glucose 98 mg/dl (70-99); Sodium 137 mmol/L (135-145); eGFR 5.22
--- NOTE | 2024-02-26 15:44 | PTCARENOTE ---
AVF ultrasound, brachio basilic on left arm complete. Occluded outflow vein.
[2024-02-26 17:27] VITALS: BP 102/73
== END 2024-02-26 17:30 | disposition home or self-care (01) ==
LOC: EMR 11:36
PROVIDERS: EMERGENCY PHYSICIAN Student in an Organized Health Care Education/Training Program; FAMILY PHYSICIAN Physician Assistant
DX: I77.0 Arteriovenous fistula, acquired (principal); N18.6 End stage renal disease
CPT/HCPCS: 99284; 80048; 93990

== ENCOUNTER → 2024-04-26 10:57 | Outpatient (REF) | payer MEDICAID, SELFPAY | LOC: RAD 10:57 | PROVIDERS: ATTENDING PHYSICIAN Surgery Vascular Surgery; FAMILY PHYSICIAN Physician Assistant | DX: Z01.818 Encounter for other preprocedural examination (principal); I87.1 Compression of vein | CPT/HCPCS: 71275; 93985; Q9967 ==

== ENCOUNTER 2024-05-15 14:17 | Emergency (ER) | payer MEDICAID, SELFPAY ==
[2024-05-15] VITALS (8 sets, daily range): BP systolic 108–137; BP diastolic 65–87
--- NOTE | 2024-05-15 16:27 | ED.GENMED ---
History of Present Illness
General
Chief Complaint: Urinary Symptoms
Time Seen by Provider: 05/15/24 15:47
History of Present Illness
History of Present Illness:
38-year-old female with history of end-stage renal disease on HD (MWF) via chest wall catheter presenting to the emergency department for oliguria. Patient notes that she usually urinates a small amount about twice a day, however has had no
urination for the past 12 days. She talk to her primary care doctor who advised that she hospital because patient has history of urinary tract infections. Patient with history of renal failure secondary to pyelonephritis, status post left
nephrectomy, with now failed right kidney. Patient also with bilateral failed AV fistula grafting. On , she is due to get a revision of her left upper extremity. Does note some burning to the genital region and some lower abdominal
discomfort, lower back pain. Denies fever, chest pain, difficulty breathing. Notes hemodialysis session yesterday. She is due for dialysis tomorrow. Denies additional acute medical complaint
Past History
Past History
ED Past Medical History: GERD, HTN, IDDM, Renal failure (End stage renal disease, dialysis dependent) and Hypothyroidism
ED Past Surgical History: Urological (left nephrectomy)
Social History
Tobacco: Non-smoker
Alcohol: None
Drug: None
Personal:
Living: with family
Employment: Not employed
Family History
Family History: Other (Parents are diabetics)
Phy Exam
Physical Exam
Physical Exam:
General: Well-appearing, no clinical signs of dehydration, nontoxic and in no acute distress
HEENT: protecting airway
Neck: appears supple
CV: Normal heart rate, regular rhythm
Resp: No accessory muscle use, no increased work of breathing, lungs clear to auscultation bilaterally
Abd: Soft and non-distended, mild tenderness to the lower abdomen, no rebound or guarding
Extremities: No deformities, no swelling, no erythema
Neuro: alert, no focal neurologic deficit
: deferred
Rectal: deferred
Psych: Normal affect
Skin: Intact
Course
Orders/Labs/Results
Orders:
Orders
05/15/24 16:18
CT Abd/pel Without Iv Or Oral Urgent
Comment:
Reason For Exam: lower abdominal pain, hx UTI, oliguria
Urinalysis Reflex To Culture Urgent
05/15/24 16:46
Test Result ONCE
05/15/24 16:58
Basic Metabolic Panel Urgent
Complete Blood Count/With Diff Urgent
, Serum Qualitative Screen [HCG, Serum Qualitative Screen] Urgent
05/15/24 17:35
Crisis Consult Urgent
Reason for Consult: depressed, no current SI
Abnormal Lab Results
05/15/24
16:58
RBC 3.62 L 10^6/uL
(4.20-5.40)
Hct 34.2 L %
(37.0-47.0)
MCH 33.4 H pg
(27.0-31.0)
RDW 15.2 H %
(11.5-14.5)
MPV 11.2 H fL
(7.4-10.4)
Sodium 134 L mmol/L
(135-145)
Chloride 94 L mmol/L
(98-107)
Carbon Dioxide 20 L mmol/L
(22-30)
BUN 36 H mg/dl
(7-17)
Creatinine 7.3 H* mg/dL
(0.6-1.0)
Glucose 144 H mg/dl
(70-99)
05/15/24 16:58
05/15/24 16:58
Vital Signs
Initial and Last Documented VS:
Initial Vital Signs
Temp Pulse Resp BP Pulse Ox
98.2 F 90 15 121/81 100
05/15/24 14:23 05/15/24 14:23 05/15/24 14:23 05/15/24 14:23 05/15/24 14:23
Last Documented Vital Signs
Temp Pulse Resp BP Pulse Ox
98.2 F 90 15 109/66 100
05/15/24 14:23 05/15/24 14:23 05/15/24 14:23 05/15/24 17:00 05/15/24 17:15
MDM/Problems Addressed
MDM/Problems Addressed:
38-year-old female with history of end-stage renal disease on HD (MWF) via chest wall catheter presenting to the emergency department for oliguria. Vital signs on arrival are normal.
On exam, patient is resting comfortably, no acute distress, nontoxic. Suspected oliguria from worsening renal disease versus urinary tract infection. Patient nontoxic afebrile, lower suspicion for pyelo. Will screen with laboratory analysis,
bladder scan for urinalysis, and CT imaging of the abdomen pelvis to evaluate kidney.
18:40 -patient had a bladder scan completed by nursing staff, less than 2 cc of urine in the bladder. Continue to suspect oliguria from chronic renal disease.
20:00 - Labs are consistent with chronic renal disease. No leukocytosis. CT of the abdomen and pelvis shows chronic renal disease without concerning signs of infection. Patient otherwise remains hemodynamically stable. At this time feel that she
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 Patient to receive dialysis tomorrow. Return precautions discussed and patient verbalized understanding
*Critical Care Note
Total Time (30-74mins, 75-104mins- exclusive of procedures): Not Applicable
ED Attending Note
-
Portions of this chart may have been created with voice recognition software.� Occasional wrong word or��sound alike� substitutions may have occurred due to the inherent limitations of voice recognition software.
Discharge Plan
Departure
Patient Disposition: Home (Routine Discharge)
Date of Disposition: 05/15/24
Time of Disposition: 20:25
Patient with high blood pressure during this ER visit?: No
Condition: Good
Discharge Problem:
Oliguria, Chronic kidney disease
Instructions: Chronic kidney disease, End-stage kidney disease (kidney failure)
Prescriptions:
New
clotrimazole 1 % cream
1 applic topical BID Qty: 15 0RF
No Action
pantoprazole 20 MG tablet,delayed release (DR/EC)
20 mg PO DAILY
sevelamer carbonate 800 mg Tablet
800 - 2,400 mg PO AC
hydroxyzine HCl 25 MG tablet
25 mg PO QIDPRN PRN (Reason: anxiety)
levothyroxine [Synthroid] 88 mcg Tablet
88 mcg PO DAILY
cholecalciferol (vitamin D3) 50 mcg (2,000 unit) Capsule
50 mcg PO DAILY
multivitamin Tablet
1 tab PO DAILY
atenolol 100 mg Tablet
100 mg PO DAILY
acetaminophen 500 mg Tablet
1,000 mg PO Q6H PRN (Reason: pain)
nifedipine 60 mg Tablet Extended Release
60 mg PO BID
Referrals:
UNKNOWN - PT DOES,NOT KNOW [Family Provider] -
Activity Restrictions/Additional Instructions:
You were seen in the emergency department for concern of a possible urine infection.
You were found to have no urine in your bladder to be able to send for testing. We suspect that you are not making urine secondary to your known kidney disease. Please follow-up closely with your kidney doctor and continue to get dialysis as
scheduled.
Please follow-up closely with your primary care physician.
Return to the emergency department for any worsening of your symptoms, or any development of chest pain, difficulty breathing, abdominal pain with persistent vomiting and inability to tolerate food or liquid by mouth (concern for dehydration),
weakness, headache or confusion, fever greater than 100.4, or any additional symptoms that are concerning to you.
Thank you for choosing [facility].
Interventions
Interventions:
*Risk Screen - Suicide Last Done: 05/15/24 17:16
*General Assessment Last Done: 05/15/24 17:16
*Neglect/Abuse Screening Last Done: 05/15/24 17:16
ED- Fall Risk Assessment Last Done: 05/15/24 17:17
*ED COVID-19 Vaccine History Last Done: 05/15/24 17:16
ED-Female Genitourinary Assessment Last Done: 05/15/24 17:16
Discharge Date and Time
Print Language: LITHUANIAN
[2024-05-15 17:22] LABS: % Basophils 1.1 % (0-2); % Eosinophils 2.7 % (0-6); % Immature Granulocytes 0.4 % (0-0.5); % Lymphocytes 24.5 % (20.5-51.1); % Monocytes 8.7 % (1.7-9.3); % Neutrophils 62.6 % (42.2-75.2); Absolute Basophils 0.1 10^3/uL (0-0.2); Absolute Eosinophils 0.2 10^3/uL (0-0.7); Absolute Lymphocytes 1.7 10^3/uL (1.2-3.4); Absolute Monocytes 0.6 10^3/uL (0.1-0.6); Absolute Neutrophils 4.4 10^3/uL (1.4-6.5); Hematocrit 34.2 % (37.0-47.0); Hemoglobin 12.1 g/dL (12.0-16.0); Mean Corp Hgb Conc. 35.4 g/dL (33.0-37.0); Mean Corpuscular Hgb 33.4 pg (27.0-31.0); Mean Corpuscular Volume 94.5 fL (81.0-99.0); Mean Platelet Volume 11.2 fL (7.4-10.4); Nucleated Red Blood Cells % 0 %; Platelet Count 143 10^3/uL (130-400); Red Blood Cell Count 3.62 10^6/uL (4.20-5.40); Red Cell Dist. Width 15.2 % (11.5-14.5)
[2024-05-15 17:42] LABS: Blood Urea Nitrogen 36 mg/dl (7-17); Calcium 9.6 mg/dl (8.4-10.2); Carbon Dioxide 20 mmol/L (22-30); Chloride 94 mmol/L (98-107); Glucose 144 mg/dl (70-99); HCG, Serum Qualitative Screen Negative; Sodium 134 mmol/L (135-145); eGFR 6.81
== END 2024-05-15 20:40 | disposition home or self-care (01) ==
LOC: EMR 14:17
PROVIDERS: EMERGENCY PHYSICIAN Student in an Organized Health Care Education/Training Program
DX: R34 Anuria and oliguria (principal); I12.0 Hypertensive chronic kidney disease with stage 5 chronic kidney disease or end stage renal disease; E11.22 Type 2 diabetes mellitus with diabetic chronic kidney disease; N18.6 End stage renal disease; K21.9 Gastro-esophageal reflux disease without esophagitis; E03.9 Hypothyroidism, unspecified; Z83.3 Family history of diabetes mellitus; Z87.440 Personal history of urinary (tract) infections; Z90.5 Acquired absence of kidney; Z99.2 Dependence on renal dialysis
CPT/HCPCS: 99284; 74176; 80048; 84703; 85025

== ENCOUNTER 2024-05-17 06:12 | Day surgery (SDC) | payer MEDICAID, SELFPAY ==
[2024-05-17] VITALS (15 sets, daily range): BP systolic 87–125; BP diastolic 49–70; BMI 24.4
--- NOTE | 2024-05-17 07:02 | W.SUR.PREOP ---
Pre-Operative Surgical Note
-
I have examined this patient prior to the performance of the scheduled procedure.
The patient's condition is unchanged from the time of the current History and
Physical and the patient is able to undergo the scheduled procedure.
[2024-05-17] MEDS: BACTROBAN NASAL 1 GRAM NASAL (07:22)
[2024-05-17] MEDS: NSS 500 IV (07:22)
[2024-05-17] MEDS: PERIDEX 0.12% ORAL RINSE 15 ML PO (07:22)
[2024-05-17 07:28] LABS: Glucose - Point of Care 141 mg/dl (70-99)
[2024-05-17 07:42] LABS: Hematocrit 37.2 % (37.0-47.0); Hemoglobin 12.1 g/dL (12.0-16.0); Mean Corp Hgb Conc. 32.5 g/dL (33.0-37.0); Mean Corpuscular Hgb 32.7 pg (27.0-31.0); Mean Corpuscular Volume 100.5 fL (81.0-99.0); Mean Platelet Volume 11.2 fL (7.4-10.4); Platelet Count 155 10^3/uL (130-400); Red Cell Dist. Width 15.6 % (11.5-14.5)
[2024-05-17 07:51] LABS: INR 1.05; PT 14.3 Sec (11.4-14.6)
[2024-05-17 07:52] LABS: APTT 28.1 Sec (23.4-35.0)
[2024-05-17 07:54] LABS: HCG, Serum Qualitative Screen Negative
[2024-05-17 08:00] LABS: Blood Urea Nitrogen 24 mg/dl (7-17); Calcium 10.1 mg/dl (8.4-10.2); Carbon Dioxide 27 mmol/L (22-30); Chloride 93 mmol/L (98-107); Estimated Creatinine Clearance 9 ml/min; Glucose 153 mg/dl (70-99); Potassium 4.3 mmol/L (3.5-5.1); Sodium 139 mmol/L (135-145); eGFR 7.82
--- NOTE | 2024-05-17 08:18 | W.PN.UPDATE ---
Update Note
Progress Note Update
Note - patient in OR under anesthesia. I examined arm and now L cephalic vein looks reasonable in upper arm. And I interrogated with ultrasound and it looks reasonable throughout upper arm. Discussed with patient possible AV fistula vs
graft (as consent initially only had read 'graft.') He understands and wishes for us to proceed.
--- NOTE | 2024-05-17 09:18 | W.SUR.POST ---
Surgical Immediate Post Op
Note
Pre Op Diagnosis: ESRD
Post Op Diagnosis: ESRD
Procedure Performed: Left upper extremity brachiocephalic AV fistula creation
Primary Surgeon: Fabricio Vergara MD
salon shampoo assistant: ISABEL Latham
Anesthesia: GETA
Estimated Blood Loss: 5 mL
Fluids: See anesthesia flowsheet
Drains/Shunts: N/A
Specimens/Cultures: N/A
Doppler/Duplex/Angio (Y/N): Y
Complications: None
Operative Findings: Successful creation of AV fistula with positive thrill postoperatively
[2024-05-17 09:40] LABS: Glucose - Point of Care 140 mg/dl (70-99)
--- NOTE | 2024-05-17 09:48 | OR.RPT ---
Operative Report
Operative Report
PROCEDURE DATE: 05/17/2024
Preoperative diagnosis: End-stage renal disease on hemodialysis
Postoperative diagnosis: Same
Procedure: Left upper extremity brachiocephalic arteriovenous fistula creation
Surgeon: Jai
Will Call Clerk: YARIEL Troncoso, required for all aspects of procedure including assistance with traction/countertraction, following of suture line, assistance with closure.
Complications: None
Anesthesia: General
Indications for procedure:
Patient with end-stage renal disease on hemodialysis. Prior failed access to use in both arms prior to my meeting her. Now presented for new access creation. Initially had discussed left upper extremity AV graft creation. Possible right upper
extremity AV graft. Risk/benefit/alternatives also discussed. Patient understood all wished to proceed.
Description of procedure:
Patient was identified brought to the operating room placed on the table in supine position. After the induction of anesthesia, I inspected the left upper extremity and noted the cephalic vein appeared visible near the antecubital fossa. I
therefore used an ultrasound to map the vein. It seemed very reasonable. Therefore I had not planned on there being a suitable vein based on her preoperative imaging and assessments. But now it appeared the cephalic vein was reasonable. I called
the patient's to discussed with him likely the use of fistula (her own autogenous vein) versus graft. He understood and agreed to proceed.
After the adequate administration of anesthesia and perioperative antibiotics she was prepped and draped in the standard surgical fashion. A standard preoperative timeout was undertaken and everybody was in agreement the plan. A transverse
incision was made in the proximal volar aspect of the forearm just distal to the antecubital fossa. This was carried through skin subcutaneous tissue. The antecubital extension of the cephalic vein was identified and carefully dissected away from
surrounding structures and great care to avoid any injury to structures. Any branches were ligated between silk ties and then divided. As such I was able to mobilize a suitable length of cephalic vein. Once I had done this I then deepened my
dissection in the medial aspect of the incision site through the fascial layer. The brachial artery was carefully identified and carefully dissected away from surrounding structures take great care to avoid injury to structures. I passed a vessel
loop around proximally and distally. Next I gave the patient 3000 units of intravenous heparin. I then ligated the cephalic vein distally in my field with a silk tie and a clip. I then transected it. I distended under heparinized saline. It
distended very well. I marked the anterior surface under distention to avoid any kinking or twisting. Next I tightened my doubly Vesseloops on the artery proximally and distally. I then made an arteriotomy with 11 blade extended using a Capone
scissor. I spatulated the cephalic vein and sewed an end to side anastomosis using a running 6-0 Prolene suture (four-quadrant technique). Prior to completing and tying down my suture line I backbled and forebled the [place] artery. Next I
released my bulldog clamp on the vein and then released my Vesseloops on the artery. There was an excellent pulse/thrill in the fistula. There was a palpable pulse at the wrist in the radial artery. When I inspected the vein outflow it was
slightly more pulsatile in the immediate outflow segment and more of a thrill slightly beyond there. When I used a retractor to look at the vein as it flowed more distally (further up proximally and the arm), it appeared slightly smaller in
diameter here. However, I felt that this may dilate over time and given that there was a reasonable thrill it was worth continuing as such. At this point I was very satisfied. I irrigated. I achieved and confirmed full hemostasis. We then
closed in layers using 3-0 Vicryl deep dermal layer followed by 4-0 Monocryl subcuticular stitch. Dermabond was applied. The patient tolerated the procedure well.
[2024-05-17] MEDS: SUBLIMAZE 25 MCG IV (10:09)
== END 2024-05-17 12:20 | disposition home or self-care (01) ==
LOC: CATH 06:12
PROVIDERS: ATTENDING PHYSICIAN Surgery Vascular Surgery; FAMILY PHYSICIAN Physician Assistant
DX: I12.0 Hypertensive chronic kidney disease with stage 5 chronic kidney disease or end stage renal disease (principal); E11.22 Type 2 diabetes mellitus with diabetic chronic kidney disease; N18.6 End stage renal disease; Z99.2 Dependence on renal dialysis; Z79.890 Hormone replacement therapy; Z79.891 Long term (current) use of opiate analgesic; Z79.899 Other long term (current) drug therapy
CPT/HCPCS: 36821; 80048; 82962; 84703; 85027; 85610; 85730; 86850; 86900; 86901

== ENCOUNTER → 2024-06-23 08:26 | Outpatient (REF) | payer MEDICAID, OTHER, SELFPAY ==
[2024-06-23 10:48] LABS: % Eosinophils 4.2 % (0-6); % Immature Granulocytes 0.4 % (0-0.5); % Neutrophils 77.4 % (42.2-75.2); Absolute Basophils 0.1 10^3/uL (0-0.2); Absolute Eosinophils 0.3 10^3/uL (0-0.7); Absolute Monocytes 0.3 10^3/uL (0.1-0.6); Absolute Neutrophils 5.7 10^3/uL (1.4-6.5); Hematocrit 41.4 % (37.0-47.0); Hemoglobin 13.3 g/dL (12.0-16.0); Mean Corp Hgb Conc. 32.1 g/dL (33.0-37.0); Mean Corpuscular Hgb 31.4 pg (27.0-31.0); Mean Corpuscular Volume 97.9 fL (81.0-99.0); Mean Platelet Volume 11.1 fL (7.4-10.4); Nucleated Red Blood Cells % 0 %; Platelet Count 134 10^3/uL (130-400); Red Blood Cell Count 4.23 10^6/uL (4.20-5.40); Red Cell Dist. Width 16.4 % (11.5-14.5); White Blood Cell Count 7.3 10^3/uL (4.8-10.8)
[2024-06-23 10:53] LABS: ALT (SGPT) 33 U/L (0-35); AST (SGOT) 34 U/L (14-36); Albumin 4.9 g/dl (3.5-5.0); Alkaline Phosphatase 153 U/L (38-126); Direct Bilirubin 0.5 mg/dl (0.0-0.4); Total Bilirubin 0.6 mg/dl (0.2-1.3); Total Protein 7.9 g/dl (6.3-8.2)
[2024-06-23 11:26] LABS: TSH Reflex To Free T4 1.01 uIU/ml (0.47-4.68)
[2024-06-23 13:23] LABS: Vitamin B12 996 pg/ml (239-931)
[2024-06-25 17:52] LABS: Hepatitis B Surface Antigen Negative (Negative)
[2024-06-25 18:11] LABS: Hepatitis A Antibody, Total Positive (Negative); Hepatitis B Core Ab, Total Negative (Negative); Hepatitis B Surface Antibody Positive; Hepatitis C Antibody Negative (Negative)
== END ==
LOC: REG 08:26
PROVIDERS: ATTENDING PHYSICIAN Physician Assistant; FAMILY PHYSICIAN Internal Medicine Gastroenterology
DX: R20.2 Paresthesia of skin (principal); R53.83 Other fatigue; I25.10 Atherosclerotic heart disease of native coronary artery without angina pectoris; K76.0 Fatty (change of) liver, not elsewhere classified
CPT/HCPCS: 36415; 80076; 82607; 84443; 85025; 86704; 86706; 86708; 86803; 87340

== ENCOUNTER → 2024-07-05 14:02 | Outpatient (REF) | payer MEDICAID, SELFPAY | LOC: RAD 14:02 | PROVIDERS: ATTENDING PHYSICIAN Registered Nurse | DX: I77.0 Arteriovenous fistula, acquired (principal) | CPT/HCPCS: 93990 ==

== ENCOUNTER 2024-07-26 09:30 | Day surgery (SDC) | payer MEDICAID, SELFPAY ==
[2024-07-26] VITALS (11 sets, daily range): BP systolic 100–113; BP diastolic 48–61; BMI 26.5
[2024-07-26 10:39] LABS: Hematocrit 38.7 % (37.0-47.0); Hemoglobin 12.2 g/dL (12.0-16.0); Mean Corp Hgb Conc. 31.5 g/dL (33.0-37.0); Mean Corpuscular Hgb 30.3 pg (27.0-31.0); Mean Corpuscular Volume 96.3 fL (81.0-99.0); Mean Platelet Volume 10.9 fL (7.4-10.4); Platelet Count 145 10^3/uL (130-400); Red Blood Cell Count 4.02 10^6/uL (4.20-5.40); Red Cell Dist. Width 15.2 % (11.5-14.5)
[2024-07-26 10:40] LABS: Glucose - Point of Care 149 mg/dl (70-99)
[2024-07-26 10:50] LABS: INR 1.04; PT 13.9 Sec (11.4-14.6)
[2024-07-26 10:51] LABS: APTT 29.3 Sec (23.4-35.0)
[2024-07-26 11:05] LABS: Blood Urea Nitrogen 22 mg/dl (7-17); Calcium 9.4 mg/dl (8.4-10.2); Carbon Dioxide 26 mmol/L (22-30); Chloride 94 mmol/L (98-107); Estimated Creatinine Clearance 11 ml/min; Glucose 151 mg/dl (70-99); Potassium 5.3 mmol/L (3.5-5.1); Sodium 138 mmol/L (135-145); eGFR 9.77
--- NOTE | 2024-07-26 12:21 | W.SUR.POST ---
Surgical Immediate Post Op
Note
Pre Op Diagnosis: ESRD
Post Op Diagnosis: ESRD
Procedure Performed: Left upper extremity fistulogram with GLAZIER ARTIST to venous outflow stenosis at anastomosis
Primary Surgeon: Fabricio Vergara MD
Secondary Surgeons: N/A
Anesthesia: MAC
Estimated Blood Loss: 2 mL
Fluids: See anesthesia flowsheet
Drains/Shunts: N/A
Specimens/Cultures: N/A
Doppler/Duplex/Angio (Y/N): Y
Complications: None
Operative Findings: Palpable thrill at fistula post fistulogram
--- NOTE | 2024-07-26 12:29 | OR.RPT ---
Operative Report
Operative Report
PROCEDURE DATE: 07/26/2024
Preoperative diagnosis:
1. End-stage renal disease on hemodialysis.
2. Poorly maturing left upper extremity arteriovenous fistula.
Postoperative diagnosis: Same
Procedure:
1. Left upper extremity fistulogram and central venogram.
2. Balloon angioplasty of outflow vein stenosis (immediately adjacent to anastomosis) with 4 mm, 5 mm, 6 mm angioplasty balloon.
3. Supervision and interpretation.
Surgeon: Jai
Dredge Master: None
Complications: None
Anesthesia: Local, sedation
Fluoroscopy:
4.1 min
4 mGy
1.12 Gy.cm2
Indications for procedure:
End-stage renal disease on hemodialysis. Fistula with slightly low flow volumes and potential stenosis on duplex. Risk/benefits/alternatives of fistulogram fully discussed. Patient understood all wished to proceed.
Description of procedure:
Patient was identified, brought to the operating room. Placed on the table in the supine position. After the adequate administration of anesthesia, the patient was prepped and draped in the standard surgical fashion. A standard preoperative
timeout was undertaken and everybody was in agreement with the plan.
The left upper extremity cephalic outflow vein of the fistula was punctured in the upper arm proximally and a peripheral facing direction under direct duplex ultrasound guidance using a micropuncture kit. A 5 [place] sheath was then advanced over a
0.035 inch wire. Fistulogram demonstrated widely patent fistula in the vicinity of the sheath entry site. Flow was brisk and therefore did not reflux across the anastomosis or the proximal segment of the fistula. Therefore I then used a flopping
of hydrophilic wire and a glide catheter and advanced it towards the anastomotic area. This demonstrated the entirety of the fistula beyond the anastomosis was widely patent. However I still could not get reflux across the anastomosis. I
therefore then carefully used a flopping of hydrophilic wire and the glide catheter was finally able to cannulate the brachial artery proximal to the anastomosis. I then advanced my catheter and performed angiography/fistulogram. This demonstrated
patent anastomosis with what appeared to be a moderate to significant stenosis just beyond the anastomosis or right at the anastomosis. The double density of the anastomosis could be seen to be reasonably patent with no stenosis, but just beyond
there there was a significant stenosis. I therefore then exchanged for a Storq wire. The patient was given 3000's of intravenous heparin. I then performed balloon angioplasty of that segment with a 4 mm balloon. However given the relatively
small sizing of the balloon, I then exchanged for a 5 mm angioplasty balloon. There was no waist in the balloon. Completion angiogram was performed that demonstrated still some residual stenosis. I therefore then used a 6 mm balloon. Completion
angiogram now demonstrated improved result. Still was not completely expanded out, but there did not appear to be as severe stenosis. In addition I did not wish to use a Cutting Balloon right at the anastomosis here and into the artery. In
addition I did not wish to stent at this site either. Therefore was satisfied with these results. Central venogram demonstrated widely patent cephalic arch and central venous system. No evidence of central venous stenosis. At this point is very
satisfied. The wires and catheters were withdrawn. A 4-0 Monocryl pursestring stitch was placed around the sheath entry site and was tied down as the sheath was withdrawn. Manual pressure was also gently applied to the puncture site. Hemostasis
was fully achieved. There is an excellent thrill in the fistula upon completion.
The patient tolerated procedure well.
[2024-07-26 12:45] LABS: Glucose - Point of Care 116 mg/dl (70-99)
--- NOTE | 2024-07-26 13:43 | SUR.PHASEI ---
minimal discomfort in pacu , vss, dressing dry left upper arm with + Bruit and + thrill
[2024-07-26] MEDS: TYLENOL 650 MG PO (13:45)
== END 2024-07-26 14:11 | disposition home or self-care (01) ==
LOC: CATH 09:30
PROVIDERS: ATTENDING PHYSICIAN Surgery Vascular Surgery; FAMILY PHYSICIAN Family Medicine
DX: T82.858D Stenosis of other vascular prosthetic devices, implants and grafts, subsequent encounter (principal); Y83.2 Surgical operation with anastomosis, bypass or graft as the cause of abnormal reaction of the patient, or of later complication, without mention of misadventure at the time of the procedure; N18.6 End stage renal disease; Z99.2 Dependence on renal dialysis; I12.0 Hypertensive chronic kidney disease with stage 5 chronic kidney disease or end stage renal disease; E11.22 Type 2 diabetes mellitus with diabetic chronic kidney disease; K21.9 Gastro-esophageal reflux disease without esophagitis; F32.A Depression, unspecified; F41.9 Anxiety disorder, unspecified
CPT/HCPCS: 36902; 80048; 82962; 85027; 85610; 85730; 86850; 86900; 86901; 93005; C1725; C1769; C1894; Q9967

== ENCOUNTER → 2024-09-25 08:22 | Outpatient (REF) | payer MEDICAID, SELFPAY ==
[2024-09-25 08:50] VITALS: BP 94/48; BP_SYST 91
[2024-09-25 09:25] VITALS: BP 95/57; BP_SYST 92
== END ==
LOC: RADI 08:22
PROVIDERS: ATTENDING PHYSICIAN Internal Medicine Nephrology; FAMILY PHYSICIAN Physician Assistant
DX: Z49.01 Encounter for fitting and adjustment of extracorporeal dialysis catheter (principal); N18.6 End stage renal disease
CPT/HCPCS: 36589

== ENCOUNTER 2024-10-01 19:12 | Inpatient (IN) | payer MEDICAID, SELFPAY ==
[2024-10-01] VITALS (11 sets, daily range): BP systolic 88–143; BP diastolic 53–92; BMI 23.9; BMI 24.7
--- NOTE | 2024-10-01 14:53 | CON.VAS ---
Addendum entered and electronically signed by ISABEL Pretty 10/01/24 17:57:
Given patient has not received HD, would recommend admittance to hospitalist with nephrology consultation for HD and to ensure successful cannulation following fistulogram, recommendation relayed to ED physician Dr. Nagy.
Addendum entered and electronically signed by Fabricio Vergara MD 10/01/24 17:14:
Seen and examined with YARIEL Welsh. Agree with findings as noted below. On exam she does have a thrill in the fistula near the antecubital fossa. Outflow vein slightly more difficult to palpate more centrally. Duplex reviewed. She has patent AV
fistula. There is an elevated velocity at the arterial anastomosis. Therefore we will recommend fistulogram for completeness sake. However I think this fistula is still patent. I am not sure if they are trying to access the old AV graft that
existed in that arm prior. But regardless with an elevated velocity and some concern for inadequacy of the functioning of the fistula would recommend fistulogram. Discussed with patient she understands all wishes to proceed.
Original Note:
Consultation
Consultation Request
Date/Time Consultation Performed: 10/01/24
Requesting Provider: ED provider
Performing Provider: Alyssa Welsh NP-C for Fabricio Vergara MD
Reason for Consultation: LUE AVF concern for clot
Medical History
-
Chief Complaint: LUE AVF concern for clot
History of Present Illness:
This is a 38-year-old female with significant past medical history for GERD, hypertension, hypothyroidism, diabetes, and end-stage renal disease on HD Tuesday who presents to [place] ED with reports of inability to receive HD
today. Patient and family member are contributing to HPI, both endorse that patient went to HD center this past Tuesday (09/26/24) and was told that 'clots were retrieved from her fistula 'in order for the HD session to be completed. She then
again reported to her HD session on Tuesday (09/28/24) but was unable to undergo HD due to again reports of clot making AV fistula access challenging, at the time she was instructed to return to her HD center the following day for a reattempt at
cannulation. Patient and family member endorse that left extremity AV fistula was accessed successfully on Tuesday09/29/24 and she underwent her HD session. She then reported to her HD chair today as scheduled but they were unable to access her
left extremity AV fistula and she was again told that she had a clot present in her fistula. She offers no other complaints other than inability to complete her HD session for today. Denies left hand pain, coolness, or decreased motor function of
left hand. Patient is known to our vascular surgical group as Dr. Fabricio Vergara created her AV fistula, see vascular surgical history below.
Past vascular surgical history:
05/17/24 Left upper extremity brachiocephalic arteriovenous fistula creation, Dr. Fabricio Vergara
07/26/24 Left upper extremity fistulogram and central venogram. Balloon angioplasty of outflow vein stenosis (immediately adjacent to anastomosis) with 4 mm, 5 mm, 6 mm angioplasty balloon, Dr. Fabricio Vergara
Past Medical History
Past Medical History: GERD, HTN, Hypothyroidism, NIDDM, Renal Failure and Other (anemia, depression, hyperphosphatemia, left nephrectomy for emphysematous pyelonephritis)
Past Surgical History: Other (D&E x 2, Left Nephrectomy (2016))
Social History
Tobacco: Non-Smoker
Alcohol: None
Drug: None
Allergies / Home Medications
Allergy/AdvReac Type Severity Reaction Status Date / Time
No Known Allergies Allergy Verified 10/01/24 13:49
�Medication �Instructions �Recorded �Confirmed �Type
pantoprazole 20 mg tablet,delayed 20 mg PO DAILY Gastrointestinal 03/31/17 07/26/24 History
release issue
hydroxyzine HCl 25 mg tablet 25 mg PO QIDPRN PRN anxiety 01/18/22 07/26/24 History
sevelamer carbonate 800 mg tablet 800 - 2,400 mg PO AC Kidney Disease 01/18/22 07/26/24 History
levothyroxine 88 mcg tablet 88 mcg PO DAILY Thyroid 11/17/22 07/26/24 History
(Synthroid)
acetaminophen 500 mg tablet 1,000 mg PO Q6H PRN pain 05/15/24 07/26/24 History
clotrimazole 1 % topical cream 1 applic topical BID #15 grams 05/15/24 07/25/24 Rx
multivitamin 1 tab PO DAILY 05/15/24 07/26/24 History
nifedipine 60 mg tablet,extended 60 mg PO BID 05/15/24 07/26/24 History
release
carvedilol 12.5 mg tablet 12.5 mg PO BID 05/17/24 07/26/24 History
oxycodone 5 mg tablet 5 mg PO Q8H PRN moderate pain #3 05/17/24 07/25/24 Rx
tabs
vitamin B complex-vitamin C 100 1 tab PO DAILY 07/26/24 07/26/24 History
mg-folic acid 1 mg tablet
(Dialyvite)
Review of Systems
-
History Source: Patient
Constitutional: Reports No Symptoms
EENT: Reports No Symptoms
Respiratory: Reports No Symptoms
Cardiac: Reports No Symptoms
Abdomen/GI: Reports No Symptoms
: Reports No Symptoms
Musculoskeletal: Reports Other (malfunctioning LUE AVF was told she has clot in AVF by HD RN)
Skin: Reports No Symptoms
Neurological: Reports No Symptoms
Endocrine: Reports No Symptoms
Physical Exam
Vital Signs
Temp Pulse Resp BP Pulse Ox
98.3 F 95 20 139/92 100
10/01/24 13:48 10/01/24 13:48 10/01/24 13:48 10/01/24 13:48 10/01/24 13:48
Physical Exam
General: No Apparent Distress
HEENT: Normocephalic, Anicteric and Atraumatic
Respiratory: Non Labored Respirations
Cardiac: Negative JVD
GI: Non Distended
Musculoskeletal: No Edema and Other (LUE AVF fistula with palpable pulse at base of AVF, no thrill, hand warm, +1 radial pulse, no edema )
Skin: Warm and Dry
Neuro: Awake, Alert and Oriented
Psych: Calm
Assessment / Plan
-
Assessment: 38-year-old female suspected left lower extremity AV fistula clot and inability to receive HD
Plan:
Ultrasound of left extremity AV fistula to determine if clot burden is present, vascular surgical recommendations pending ultrasound results
--- NOTE | 2024-10-01 15:40 | ED.GENMED ---
History of Present Illness
General
Chief Complaint: Vascular Access Problem
Time Seen by Provider: 10/01/24 14:11
History of Present Illness
History of Present Illness:
38-year-old female with history of end-stage renal disease with hemodialysis MWF presenting to the emergency department for concern of clotted fistula. Patient last had dialysis on Tuesday, 2 days ago. Had issues dialyzing her on Tuesday, and
then on Tuesday they were unable to do so so she returned the following day and was able to get dialyzed. Patient with history of vascular occlusions in the past, most recently in July 2024 requiring fistulogram. Denies chest pain, difficulty
breathing, or additional acute medical complaints.
Past History
Past History
ED Past Medical History: GERD, HTN, IDDM, Renal failure (End stage renal disease, dialysis dependent) and Hypothyroidism
ED Past Surgical History: Urological (left nephrectomy)
Social History
Tobacco: Non-smoker
Alcohol: None
Drug: None
Personal:
Living: with family
Employment: Not employed
Family History
Family History: Other (Parents are diabetics)
Phy Exam
Physical Exam
Physical Exam:
General: Well-appearing, no clinical signs of dehydration, nontoxic and in no acute distress
HEENT: protecting airway
Neck: appears supple
CV: Normal heart rate
Resp: No accessory muscle use, no increased work of breathing
Abd: no distension
Extremities: No deformities, no swelling. Palpable thrill at the distal aspect of the left AV fistula graft.
Neuro: alert, no focal neurologic deficit
: deferred
Rectal: deferred
Psych: Normal affect
Skin: Intact
Course
Orders/Labs/Results
Orders:
Orders
10/01/24 Breakfast
Sodium, 2 Gram
At Your Request: Full Participation
Does patient need a safe tray?: No
10/01/24 14:22
Hemodialysis Graft US [US Hemodialysis Graft] Urgent
Comment:
Reason For Exam: unable to get HD
10/01/24 17:25
IV Insert/Care/Rem.- Treatment PRN
10/01/24 17:41
Complete Blood Count/With Diff Urgent
10/01/24 17:50
Admit/Transfer Patient As Directed
Co-Sign Provider:
Level of Care: Inpatient admission
Assign to:: Medical/Surgical
Physician / Group: [facility]tay
Diagnosis: Malfunctioning AV Fistula
Reason for Hospitalization: Fistulogram, Dialysis
Expected length of stay greater than two midnights?: Yes
ELOS- Estimated Length of Stay in days: 3
I certify the patient meets the requirements for IP care: Yes
PRN Pain Medication Management As Directed
May give lesser potent ordered pain med per pt: Yes
preference::
Protocol:: Medication orders for pain may be administered in a
manner that supports deferring to patient preference
when the pt is:
- Requesting an ordered lesser potent pain medication.
Least to most potent pain medications are defined
as: acetaminophen < NSAID < tramadol < opioids
(morphine, oxycodone, hydromorphone).
- Requesting a lesser dose of the same medication IF
ORDERED.
- Requesting a less intrusive route of administration
if both routes are prescribed by the provider (PO <
IV).
10/01/24 17:51
Lidocaine 2% Mpf [Xylocaine Mpf 2%] 100 mg .ROUTE .STK-MED ONE
Propofol [Diprivan] 40 ml .ROUTE .STK-MED
10/01/24 17:52
Fentanyl Citrate/Pf [Sublimaze] 100 mcg .ROUTE .STK-MED ONE
Midazolam HCl [Versed] 2 mg .ROUTE .STK-MED ONE
10/01/24 17:53
Code Status As Directed
Resuscitation Status: Full Code
HYDROmorphone [Dilaudid] 0.25 mg IV PACU-Q5MPRN PRN
HYDROmorphone [Dilaudid] 0.5 mg IV PACU-Q5MPRN PRN
Meperidine [Demerol] 12.5 mg IV PACU-Q5MPRN PRN
Ondansetron Injectable [Zofran] 4 mg IV PACU-ONCEPRN PRN
Prochlorperazine [Compazine] 5 mg IV PACU-ONCEPRN PRN
Notify MD As Directed
Notify physician if: for SDS patients with known or suspected sleep obstructive sleep apnea, monitor in the
PACU.
Notify MD for any apneic/desaturation episodes
O2 Therapy [RESP] Urgent
Titrate/Wean O2 to maintain O2 sat greater than (%): 92
Special Instructions: -Provide supplemental oxygen to achieve O2 sat of 92% or greater.
-After 15 min, may wean O2 and discontinue if patient is able to maintain O2 sat of 92%
or greater during recovery period.
If patient is a discharge home, without oxygen therapy, notify anestheiologist if
unable to maintain O2 SAT of 92% or greater on room air for MD clearance.
10/01/24 18:42
Heparin Sodium,Porcine/Ns/Pf [Heparin 2000 Units/1000 ml] 2,000 unit in 1,000 ml .ROUTE .STK-MED
Lidocaine HCl/Pf [Xylocaine-Mpf 1% Vial] 50 mg .ROUTE .STK-MED ONE
10/01/24 18:55
Type+Screen Urgent
[employer] W[employer] Number:
10/01/24 20:31
Acetaminophen [Tylenol] 650 mg PO Q4HPRN PRN
Carvedilol [Coreg] 12.5 mg PO BID
NIFEdipine EXTENDED RELEASE [Procardia Xl (Extended Release)] 60 mg PO BID
Pantoprazole [Protonix] 20 mg PO BID
10/01/24 20:31
NEPHROLOGY CONSULT Routine
Consulting Provider: Frida Varela
Was physician already notified: Yes
Vascular Surgery Consult Routine
Consulting Provider: Varun Cheung III
Was physician already notified: Yes
Activity As Directed
Activity Level: Out of Bed-Early Mobility
With Assistance
Intake/ Output As Directed
Frequency: Per unit guidelines
Neurovascular Checks As Directed
Location: Left Upper extremity
Frequency: Other
Other frequency: Q15min x 4, Q30min x 2, then Q1H x 4H, then Q4H
Notify MD As Directed
Notify physician if: - bleeding from catheter site
- hematoma
- loss of peripheral pulse/singal
- worsening temperature or color of limb
- loss of sensation or motor function in limb
Site Checks As Directed
Check access site for bleeding/hematoma: Yes
Comment: Q15min x 4, Q30min x 2, then Q1H x 4H
Vital Signs As Directed
Frequency: Other
Additional Instructions:: Q15min x 4, Q30min x 4, Q1hr x 3hrs (begin after hemostasis), then per unit
guidelines
Vital Signs As Directed
Frequency: Per unit guidelines
Weight As Directed
Frequency: Daily
Rx Incentive Spirometry [RESP] Routine
Frequency: q1h
DX Deep Vein Thrombosis Video Routine
10/01/24 21:37
Basic Metabolic Panel Urgent
10/02/24 00:00
Heparin 5,000 units SC Q8
10/02/24 06:00
Levothyroxine [Synthroid] 88 mcg PO DAILY @ 0600
10/02/24 07:23
Basic Metabolic Panel IN AM
Complete Blood Count/No Diff IN AM
10/02/24 07:30
Sevelamer Carbonate [Renvela] 2,400 mg PO AC
Abnormal Lab Results
10/01/24
17:41
RBC 3.59 L 10^6/uL
(4.20-5.40)
Hgb 11.4 L g/dL
(12.0-16.0)
Hct 35.6 L %
(37.0-47.0)
MCV 99.2 H fL
(81.0-99.0)
MCH 31.8 H pg
(27.0-31.0)
MCHC 32.0 L g/dL
(33.0-37.0)
RDW 18.2 H %
(11.5-14.5)
MPV 10.7 H fL
(7.4-10.4)
10/01/24 17:41
10/01/24 17:41
Vital Signs
Initial and Last Documented VS:
Initial Vital Signs
Temp Pulse Resp BP Pulse Ox
98.3 F 95 20 139/92 100
10/01/24 13:48 10/01/24 13:48 10/01/24 13:48 10/01/24 13:48 10/01/24 13:48
Last Documented Vital Signs
Temp Pulse Resp BP Pulse Ox
98.5 F 85 16 82/45 99
10/03/24 03:05 10/03/24 03:05 10/03/24 03:05 10/03/24 03:05 10/03/24 03:05
MDM/Problems Addressed
MDM/Problems Addressed:
38-year-old female with history of ESRD HD MWF (last dialyzed Tuesday), coming in for AV fistula issue. Vitals normal
On exam patient resting comfortably, no acute distress or discomfort. Patient does have a palpable thrill at the distal aspect of the left AV fistula graft, however no thrill proximally. Ultimate concern for occlusion. Discussed with vascular
upon arrival. Plan for duplex ultrasound imaging and management per ultrasound results. Patient in no respiratory distress, no report of chest pain or difficulty breathing. No concern for any volume overload state or need for emergent dialysis
16:15 -ultrasound shows that fistula is patent, however high velocity. In discussion with vascular, will go to the OR for fistulogram.
*Critical Care Note
Total Time (30-74mins, 75-104mins- exclusive of procedures): Not Applicable
ED Attending Note
-
Portions of this chart may have been created with voice recognition software.� Occasional wrong word or��sound alike� substitutions may have occurred due to the inherent limitations of voice recognition software.
Discharge Plan
Departure
Patient Disposition: Admit
Date of Disposition: 10/01/24
Time of Disposition: 16:19
Admit to: OR
Presentation/result/management discussed w/ accepting MD/DO: Hospitalist
Patient with high blood pressure during this ER visit?: No
Condition: Good
Discharge Problem:
AV fistula thrombosis
Interventions
Interventions:
*Risk Screen - Suicide Last Done: 10/01/24 13:48
*General Assessment Last Done: 10/01/24 13:48
*Neglect/Abuse Screening Last Done: 10/01/24 14:23
*ED- Fall Risk Assessment Last Done: 10/01/24 18:53
*ED COVID-19 Vaccine History Last Done: 10/01/24 14:23
*Nursing Disposition Last Done: 10/01/24 18:53
Discharge Date and Time
Discharge Date/Time: 10/01/24 18:54
--- NOTE | 2024-10-01 17:46 | HPS.HSE ---
Family Physician
-
Family Physician: * NONE
Chief Complaint
-
Malfunctioning AV Fistula
History of Present Illness
Patient is a 38 y/o Sinhala speaking female who presents with malfunctioning left upper extremity AV fistula. Patient usually received dialysis on Tuesday, Tuesday and Tuesday. This past Tuesday and Tuesday they had difficultly with fistula due to
'clots'. She had an extra dialysis treatment on Tuesday which apparently went well. However, today the dialysis center was unable to access the fistula and was sent to the emergency department for evaluation. Patient denies any complaints at the
present time.
Medical History
Past Medical History
Past Medical History: Reports Other
Additional Past Medical History:
Hypertension
DM-II
ERSD on HD (2019)
Celiac Disease
Anxiety / Depression
GERD
Hypothyroidism
Emphysematous Pyelonephritis / Recurrent UTIs
Past Surgical History: Reports Other
Additional Past Surgical History:
D&E x 2
Left Nephrectomy (2016)
LUE AVF
Social History
Tobacco: Non-smoker
Alcohol: None
Drug: None
Personal:
Living: With Family
Family History
Family History: Not pertinent
Allergies / Home Medications
Allergies reflects when Allergies were last updated in [facility]
Home Medications with original date entered in [facility]
Allergy/Medication List:
Allergies
Allergy/AdvReac Type Severity Reaction Status Date / Time
No Known Allergies Allergy Verified 10/01/24 13:49
Home Medications
pantoprazole 20 mg tablet,delayed release 20 mg PO BID Gastrointestinal issue 03/31/17
sevelamer carbonate 800 mg tablet 2,400 mg PO AC Kidney Disease 01/18/22
levothyroxine 88 mcg tablet (Synthroid) 88 mcg PO DAILY Thyroid 11/17/22
nifedipine 60 mg tablet,extended release 60 mg PO BID 05/15/24
carvedilol 12.5 mg tablet 12.5 mg PO BID 05/17/24
vitamin B complex-vitamin C 100 mg-folic acid 1 mg tablet (Dialyvite) 1 tab PO DAILY 07/26/24
ondansetron 8 mg disintegrating tablet 8 mg PO [id number] PRN nausea 10/01/24
Review of Systems
-
Unable to obtain full review of systems at this time due to: Language Barrier
Physical Exam
Vital Signs
Vital Signs
Temp Pulse Resp BP Pulse Ox
98.3 F 95 20 139/92 100
10/01/24 13:48 10/01/24 13:48 10/01/24 13:48 10/01/24 13:48 10/01/24 13:48
Physical Exam
General: Comfortable and Conversant
HEENT: Anicteric and Moist mucous membranes
Respiratory: Clear and Non Labored Respirations
Cardiac: S1/S2 and Regular Rhythm
GI: Soft and Non Tender
Musculoskeletal: No Clubbing and No Cyanosis
Skin: Warm, Dry and Other (Left Upper Extremity AV Fistula with good thrill; Notable bruising left upper extremity)
Neuro: Awake, Alert and Nonfocal/grossly intact
Psych: Calm
Laboratory Results
-
CBC and BMP are pending
Vascular Ultrasound:
Patent left upper extremity brachiocephalic fistula. Calculated flow volumes range between 608 cc/min and 2.4 L/min. Focal velocity elevation is identified at the arteriovenous anastomosis at 620 cm/s. Similar velocity elevation was identified on
the prior examination at this location and this has not changed. There are no focal velocity elevations along the venous outflow to suggest significant stenosis.
Data Reviewed
-
Ultrasound: Report Reviewed by me
Lab Data: Labs Reviewed by me
Impression/Plan
-
Malfunctioning Left Upper Extremity AV Fistula
-Vascular planning for fistulogram likely this evening
ESRD on HD [facility]
-Consult Nephrology
-Await lab results
-Continue sevelamer carbonate
Essential Hypertension
-Continue Coreg and Nifedipine
Hypothyroidism
-Continue levothyroxine
GERD
-Continue Protonix
DVT proph: SC Heparin
Code Status: Full Code
[2024-10-01 17:49] LABS: % Eosinophils 4.5 % (0-6); % Immature Granulocytes 0.5 % (0-0.5); % Lymphocytes 20.7 % (20.5-51.1); % Monocytes 5.2 % (1.7-9.3); % Neutrophils 68.1 % (42.2-75.2); Absolute Basophils 0.1 10^3/uL (0-0.2); Absolute Eosinophils 0.4 10^3/uL (0-0.7); Absolute Lymphocytes 1.6 10^3/uL (1.2-3.4); Absolute Monocytes 0.4 10^3/uL (0.1-0.6); Absolute Neutrophils 5.3 10^3/uL (1.4-6.5); Hematocrit 35.6 % (37.0-47.0); Hemoglobin 11.4 g/dL (12.0-16.0); Mean Corpuscular Hgb 31.8 pg (27.0-31.0); Mean Corpuscular Volume 99.2 fL (81.0-99.0); Mean Platelet Volume 10.7 fL (7.4-10.4); Nucleated Red Blood Cells % 0 %; Platelet Count 259 10^3/uL (130-400); Red Blood Cell Count 3.59 10^6/uL (4.20-5.40); Red Cell Dist. Width 18.2 % (11.5-14.5); White Blood Cell Count 7.7 10^3/uL (4.8-10.8)
--- NOTE | 2024-10-01 19:03 | W.PN.UPDATE ---
Update Note
Progress Note Update
This note serves as an addendum to the H&P by volunteer fire fighter KYAW
Clare DOLAN
HPI
38F Portuguese speaker HX ESRD on [facility] ( MWF ) sent to ER form HD for malfunctioning Lt UEx AV fistula.
Last Tuesday and Tuesday they had difficultly with fistula due to 'clots'. She had an extra dialysis treatment on Tuesday which apparently went well.
- today the dialysis center was unable to access the fistula and was sent to the emergency department for evaluation.
Vital Signs
Temp Pulse Resp BP Pulse Ox
98.3 F 98 18 138/92 100
10/01/24 13:48 10/01/24 18:46 10/01/24 18:46 10/01/24 18:46 10/01/24 18:46
PE
Gen: NAD
HEENT: moist OM
Neck: supple
Lungs: clear
Cor: RRR S1 S2
Abdomen: soft NT
ATOMIC SPECTROSCOPIST: AAO3
MS: Left Upper Extremity AV Fistula with good thrill; Notable bruising left upper extremity
Psych: calm
Abnormal Lab
10/01/24
17:41
RBC 3.59 L
Hgb 11.4 L
Hct 35.6 L
MCV 99.2 H
MCH 31.8 H
MCHC 32.0 L
RDW 18.2 H
MPV 10.7 H
Vascular Ultrasound:
Patent left upper extremity brachiocephalic fistula.
Calculated flow volumes range between 608 cc/min and 2.4 L/min. Focal velocity elevation is identified at the arteriovenous anastomosis at 620 cm/s. Similar velocity elevation was identified on the prior examination at this location and this has
not changed.
There are no focal velocity elevations along the venous outflow to suggest significant stenosis.
ASSESSMENT & PLAN
Malfunctioning Left Upper Extremity AV Fistula
- Vascular planning for fistulogram likely this evening
- Vascular consulted
ESRD on [facility] HD MWF
- f/u admission lab results
- c/w sevelamer carbonate
- Renal consult
Essential HTN
- c/w SENIOR TREASURY CONSULTANT Coreg and Nifedipine
Hypothyroidism
- c/w Levothyroxine
DVT Px SC Heparin
Full Code
IP MS
--- NOTE | 2024-10-01 19:51 | OR.RPT ---
Operative Report
Operative Report
PROCEDURE DATE: 10/01/2024
Preoperative diagnosis:
1. End-stage renal disease on hemodialysis.
2. Failing left upper extremity arteriovenous fistula.
Postoperative diagnosis: Same
Procedure:
1. Duplex assisted cannulation of left upper extremity arteriovenous fistula.
2. Left upper extremity fistulogram and central venogram.
3. Balloon angioplasty of perianastomotic stenosis with 5 mm, 6 mm standard angioplasty balloons and 6 mm high-pressure angioplasty balloon.
4. Supervision and interpretation.
Surgeon: Jai
Ways Operator: None
Complications: None
Anesthesia: Local, sedation
Fluoroscopy:
3.3 min
4 mGy
1.01 Gy.cm2
Indications for procedure:
End-stage renal disease on hemodialysis. Issues with left upper extremity fistula cannulation. Per report clots were withdrawn from the access as well. Therefore brought for fistulogram. Ultrasound had demonstrated patency of the fistula but a
potential pair anastomotic stenosis. Risk/benefit/alternatives of fistulogram were fully discussed. Note this was discussed through the hourly sign language interpreter (historic interpreter Edward #[id number]). Patient understood all wished to proceed.
Description of procedure:
Patient was identified, brought to the operating room. Placed on the table in the supine position. After the adequate administration of anesthesia, the patient was prepped and draped in the standard surgical fashion. A standard preoperative
timeout was undertaken and everybody was in agreement with the plan.
Under direct duplex ultrasound guidance the left upper extremity fistula outflow vein was punctured in the proximal upper arm and a peripheral facing direction using a micropuncture kit. A 6 Estonian sheath was then advanced over a 0.035 inch wire.
Left upper extremity fistulogram and central venogram demonstrated widely patent fistula outflow vein in the vicinity of the sheath and through the upper arm more proximally. The central veins also were widely patent without any stenoses. Next,
using a flopping of hydrophilic wire and a glide catheter, I was able to gain wire access into the brachial artery proximal to the anastomosis and then followed with the glide catheter. Fistulogram was obtained from here that demonstrated patent
arterial anastomosis but was moderately stenosed and then some post stenotic dilatation. The patient was given 3000 units of intravenous heparin. I then exchanged for a 0.035 inch Storq wire. Next, I performed balloon angioplasty of the
perianastomotic stenosis with a 5 mm balloon. I then upsized to a 6 mm balloon to serially dilate. Next I obtained fistulogram. There is demonstrated residual stenosis. Therefore I then used a 6 mm [place] high-pressure balloon. Fistulogram now
demonstrated improvement of the stenosis but still mild to moderate residual. However at this point I did not wish to go up on balloon size or with a cutting balloon due to fear of injuring the inflow artery. The thrill was significantly improved
and was strong now. Therefore I felt that this was reasonable. The wires and catheters were withdrawn. A 4-0 Monocryl U-stitch was placed around the sheath entry site. This was tied down as the sheath was withdrawn. Manual pressure was also
applied to the puncture site. Hemostasis was fully achieved. The patient tolerated procedure well. She had a palpable thrill in the fistula upon completion.
[2024-10-01 22:07] LABS: Glucose - Point of Care 89 mg/dl (70-99)
[2024-10-01] MEDS: COREG 12.5 MG PO (22:11)
[2024-10-01] MEDS: PROTONIX 20 MG PO (22:12)
[2024-10-01] MEDS: PROCARDIA XL (EXTENDED RELEASE) 60 MG PO (22:12)
[2024-10-01 22:15] LABS: Blood Urea Nitrogen 52 mg/dl (7-17); Calcium 9.6 mg/dl (8.4-10.2); Carbon Dioxide 24 mmol/L (22-30); Chloride 100 mmol/L (98-107); Estimated Creatinine Clearance 6 ml/min; Glucose 91 mg/dl (70-99); Potassium 5.3 mmol/L (3.5-5.1); Sodium 138 mmol/L (135-145)
--- NOTE | 2024-10-01 23:02 | PTCARENOTE ---
21:23 pt rec'vd from PACU, aa0x3 pt has language barrier however nurse speaks Slovak and was able to admit pt without concern. Pt LUE ecchymotic, fistula site with + thrill and bruit, + NV checks, BMP drawn right arm. pt denies pain expresses LUE
feels sore, pt's at the bedside, pt oriented to unit .
[2024-10-02] VITALS (9 sets, daily range): BP systolic 87–127; BP diastolic 45–79; BMI 24.3
[2024-10-02] MEDS: HEPARIN 5000 UNITS SC ×3 (00:15→23:22)
[2024-10-02] MEDS: ProAmatine 5 MG PO ×2 (04:10→23:40)
[2024-10-02] MEDS: SYNTHROID 88 MCG PO (05:52)
[2024-10-02] MEDS: PROCARDIA XL (EXTENDED RELEASE) PO (08:00)
--- NOTE | 2024-10-02 08:00 | W.PN.VS ---
Today's Communication / Plan
-
See below.
Assessment/Plan
-
Assessment: 38-year-old female POD #1 Duplex assisted cannulation of left upper extremity arteriovenous fistula. Left upper extremity fistulogram and central venogram. Balloon angioplasty of perianastomotic stenosis with 5 mm, 6 mm standard
angioplasty balloons and 6 mm high-pressure angioplasty balloon.
Plan:
Can access left lower extremity AV fistula for HD today
If HD session is successful okay to discharge from vascular surgical perspective
Subjective Data
-
Date of Service: October 02, 2024
Patient seen and examined at bedside, offers no complaints. HD nurse at bedside currently prepping to access left upper extremity fistula.
Objective Data
-
Vital Signs
Temp Pulse Resp BP Pulse Ox
98.3 F 89 16 112/75 99
10/02/24 07:59 10/02/24 07:59 10/02/24 07:59 10/02/24 07:59 10/02/24 07:59
Intake and Output
10/01/24 10/02/24 10/03/24
06:59 06:59 06:59
Intake Total 690 / 690
Balance 690 / 690
Intake:
Oral fluids 240 / 240
IV fluids (Total) 450 / 450
NSS 50 / 50
Lab Results
10/02/24 07:23
10/02/24 07:23
Calcium 9.2 mg/dl (8.4-10.2) 10/02/24 07:23
Physical Exam
-
No apparent distress, resting bed comfortably
No tachycardia
No dyspnea
Left upper extremity AV fistula with palpable thrill, +1 radial pulse, left hand warm
[2024-10-02] MEDS: TYLENOL 650 MG PO (08:16)
[2024-10-02] MEDS: RENVELA PO (08:17)
[2024-10-02 08:35] LABS: Blood Urea Nitrogen 57 mg/dl (7-17); Calcium 9.2 mg/dl (8.4-10.2); Carbon Dioxide 22 mmol/L (22-30); Chloride 101 mmol/L (98-107); Estimated Creatinine Clearance 6 ml/min; Glucose 98 mg/dl (70-99); Sodium 136 mmol/L (135-145); eGFR 4.16
[2024-10-02 08:41] LABS: Glucose - Point of Care 107 mg/dl (70-99)
[2024-10-02 08:50] LABS: Hematocrit 29.7 % (37.0-47.0); Hemoglobin 9.7 g/dL (12.0-16.0); Mean Corp Hgb Conc. 32.7 g/dL (33.0-37.0); Mean Corpuscular Hgb 31.7 pg (27.0-31.0); Mean Corpuscular Volume 97.1 fL (81.0-99.0); Mean Platelet Volume 10.9 fL (7.4-10.4); Platelet Count 200 10^3/uL (130-400); Red Blood Cell Count 3.06 10^6/uL (4.20-5.40); Red Cell Dist. Width 17.8 % (11.5-14.5); White Blood Cell Count 7.9 10^3/uL (4.8-10.8)
--- NOTE | 2024-10-02 09:40 | W.PN.HOSP.TC ---
Today's Communication/Plan
-
Await vascular surgery input
Assessment / Plan
Assessment / Plan
Gen-AAOx3, NAD
HEENT-NC, AT, anicteric, clear oral mm
Neck-supple
CV-reg, no M, +S1/S2
Lungs-clear B/L
Abd-soft, NT, ND
Ext-no edema
Musculoskeletal-no cyanosis, clubbing
Skin-warm and dry
Neuro-grossly non-focal
Psych-calm, cooperative
LUE AV fistula malfunction -due to stenosis. Underwent attempt at angioplasty of stenosis 10/01 evening by vascular surgery. Mild improvement noted but still not fully functional according to dialysis nurse.
ESRD -on dialysis Tuesday. Currently getting dialysis.
Hyperkalemia -due to ESRD.
Hypothyroidism -levothyroxine.
Essential hypertension -stable.
GERD -pantoprazole.
DM2 without hyperglycemia -diet controlled.
Celiac disease
Full code
updated at the bedside.
Anticipated Discharge: 24 - 48 hours
Subjective/Interval History
-
Date of Service: October 02, 2024
Patient seen and examined. No complaints.
Objective Data
-
Labs:
Laboratory Results
10/01/24 10/02/24
21:37 07:23
WBC 7.9
Hgb 9.7 L
Hct 29.7 L
Plt Count 200 D
Sodium 138 136
Potassium 5.3 H 6.0 H
Chloride 100 101
Carbon Dioxide 24 22
BUN 52 H 57 H
Creatinine 10.3 H* 11.0 H*
Glucose 91 98
Calcium 9.6 9.2
Vital Signs:
Vital Signs
Temp Pulse Resp BP Pulse Ox
98.3 F 89 16 112/75 99
10/02/24 07:59 10/02/24 07:59 10/02/24 07:59 10/02/24 07:59 10/02/24 07:59
I&O
10/01/24 10/02/24 10/03/24
06:59 06:59 06:59
Intake Total 690 / 690
Balance 690 / 690
Review of Systems
-
Unable to obtain full review of systems at this time due to: Language Barrier
--- NOTE | 2024-10-02 09:45 | W.CON.NEPH ---
Consultation
-
Date/Time Consultation Requested: 10/01/242030
Date/Time Consultation Performed: 10/02/24 10
Requesting Provider: Tonja Ruiz PA-C
Performing Provider: Frida Mckeon
Reason for Consultation: ESRD
Medical History
-
Chief Complaint: AVF malfunction
History of Present Illness:
8 y/o Cook Islander speaking female who presents with malfunctioning left upper extremity AV fistula. Patient usually received dialysis on Tuesday, Tuesday and Tuesday at [facility]. This past Tuesday and Tuesday they had difficultly with
fistula due to 'clots'. She had an extra dialysis treatment on Tuesday which apparently went well. However, yesterday the dialysis center was unable to access the fistula and was sent to the emergency department for evaluation. She had previous
failed AVF and graft. This new AVF was created in 05/2024. She underwent AVFgram and angioplasty however she still has residual stenosis. Nephrology asked for HD needs. Her potassium at 6 today. missed HD yesterday. She reports abd cramping from
menstruation. No n/v. No CP or sob.
Past Medical History
History of ESRD on dialysis Tuesday, Tuesday, Tuesday at [facility] since 2019
2. Hypertension.
3. Diabetes, type 2.
4. Hypothyroidism.
5. Celiac disease.
6. GERD.
7. Left upper extremity AV fistula.
8. Hyperphosphatemia.
9. Anxiety, depression.
PAST SURGICAL HISTORY:
1. D and E x2.
2. Left nephrectomy 2016.
3. Left upper extremity AV fistula.
Social History
Tobacco: Non-Smoker
Alcohol: None
Personal:
Living: With Family
Family History
Family History: Not Pertinent
Allergies / Home Medications
Allergy/AdvReac Type Severity Reaction Status Date / Time
No Known Allergies Allergy Verified 10/01/24 13:49
�Medication �Instructions �Recorded �Confirmed �Type
pantoprazole 20 mg tablet,delayed 20 mg PO BID Gastrointestinal issue 03/31/17 10/01/24 History
release
sevelamer carbonate 800 mg tablet 2,400 mg PO AC Kidney Disease 01/18/22 10/01/24 History
levothyroxine 88 mcg tablet 88 mcg PO DAILY Thyroid 11/17/22 10/01/24 History
(Synthroid)
nifedipine 60 mg tablet,extended 60 mg PO BID Blood Pressure 05/15/24 10/01/24 History
release
carvedilol 12.5 mg tablet 12.5 mg PO BID Heart Failure 05/17/24 10/01/24 History
vitamin B complex-vitamin C 100 1 tab PO DAILY Supplement 07/26/24 10/01/24 History
mg-folic acid 1 mg tablet
(Dialyvite)
ondansetron 8 mg disintegrating 8 mg PO [id number] PRN nausea 10/01/24 10/01/24 History
tablet
Review of Systems
-
All other systems: Negative unless noted
Physical Exam
Vital Signs
Vital Signs
Temp Pulse Resp BP Pulse Ox
98.3 F 89 16 112/75 99
10/02/24 07:59 10/02/24 07:59 10/02/24 07:59 10/02/24 07:59 10/02/24 07:59
Lab Results
WBC 7.9 10^3/uL (4.8-10.8) 10/02/24 07:23
RBC 3.06 10^6/uL (4.20-5.40) L 10/02/24 07:23
Hgb 9.7 g/dL (12.0-16.0) L 10/02/24 07:23
Hct 29.7 % (37.0-47.0) L 10/02/24 07:23
Plt Count 200 10^3/uL (130-400) D 10/02/24 07:23
Sodium 136 mmol/L (135-145) 10/02/24 07:23
Potassium 6.0 mmol/L (3.5-5.1) H 10/02/24 07:23
Chloride 101 mmol/L (98-107) 10/02/24 07:23
Carbon Dioxide 22 mmol/L (22-30) 10/02/24 07:23
BUN 57 mg/dl (7-17) H 10/02/24 07:23
Creatinine 11.0 mg/dL (0.6-1.0) H* 10/02/24 07:23
eGFR 4.16 10/02/24 07:23
Glucose 98 mg/dl (70-99) 10/02/24 07:23
Calcium 9.2 mg/dl (8.4-10.2) 10/02/24 07:23
Physical Exam
General: Awake, Alert, Oriented, AOx3, No Distress and Nontoxic
HEENT: EOMI, Anicteric, Conjunctivae Clear and Neck Supple
Respiratory: Clear, Normal Excursion and Nonlabored Respirations
Cardiac: S1/S2 and Regular Rate/Rhythm
Breast: Deferred by me
Abdomen: Soft, Nontender and Nondistended
Musculoskeletal: No Cyanosis and Edema (1+left UE )
Skin: No Rash, Warm and Dry
Neuro: Nonfocal/Grossly Intact
Psych: Mood/afflect pleasant, Insight/judgement good and Appropriate
Data Reviewed
-
Radiology: Report Reviewed by me, Discussed with Patient and Discussed with Family
Labs: Labs Reviewed by me, Discussed with Patient and Discussed with Family
Assessment/Plan
-
IMP:
Malfunction of left UE AVF s/p angioplasty 10/01
Abdominal pain with menstrual cycle
Anxiety / Depression
ESRD on HD [facility] Pulselocker [facility]HD since 2019
DM-II
Hypothyroidism
Celiac Disease
GERD
Emphysematous Pyelonephritis / Recurrent UTIs
Left Nephrectomy (2015)
LUE AVF-reportedly placed 2yrs ago-LEFT arm fistulogram demonstrated mild recurrent in-stent stenoses,h/o balloon angioplasty 2022
hyperphosphatemia
Fatty liver
Cholelithiasis
Plan:
a/w malfunction AVF now s/p angioplasty
will access today for HD
missed Tuesday
hyperkalemia-renal diet
BP are soft, meds with holding parameters, prn midodrine
maintain FR
HD again tomorrow
--- NOTE | 2024-10-02 10:28 | CM ---
Cm reviewed medical records. CM met with patient and in room. provided translation assistance. Patient lives independently with . Patient does not have a history of VN, PT, or SNF. Patient is a HD patient at [facility] in
[place] ([facility]). Patient is on a MWF schedule.
Patient is active with her PCP at [facility]. Patient has medication coverage and uses [facility].
PLAN: Home with continued HD at [facility].
--- NOTE | 2024-10-02 10:58 | W.PN.NEPH.HD ---
Assessment
-
pt seen during HD
vitals stable , UF as tolerates
AVF s/p angioplasty on 10/01-blood flow not great at venous end
noted she is still with residual stenosis
spoke with vascular
will attempt HD again tomorrow if not functioning need catheter
Progress Note - Hemodialysis
-
Date of Service: October 02, 2024
Duration: 30 minutes and 3 hours
Potassium Bath: 2
Calcium Bath: 2.5
Opti-Dialyzer: 160
Ultrafiltration: Other (2-3kg)
Blood Flow: 300
Dialysate Flow: 600
Heparin: no
EPO: no
[2024-10-02 11:40] LABS: Glucose - Point of Care 97 mg/dl (70-99)
[2024-10-02] MEDS: HEPARIN SC (14:13)
[2024-10-02] MEDS: COREG PO (14:13)
[2024-10-02] MEDS: RENVELA 2400 MG PO ×2 (14:14→17:50)
[2024-10-02] MEDS: PROTONIX 20 MG PO ×2 (14:15→20:08)
[2024-10-02 17:34] LABS: Glucose - Point of Care 169 mg/dl (70-99)
[2024-10-02] MEDS: COREG 12.5 MG PO (20:07)
[2024-10-02] MEDS: PROCARDIA XL (EXTENDED RELEASE) 60 MG PO (20:07)
[2024-10-02 21:53] LABS: Glucose - Point of Care 143 mg/dl (70-99)
[2024-10-03 03:05] VITALS: BP 82/45
[2024-10-03 06:00] VITALS: BMI 24.0
[2024-10-03] MEDS: SYNTHROID 88 MCG PO (06:00)
[2024-10-03] MEDS: TYLENOL 650 MG PO ×2 (06:02→21:38)
[2024-10-03 06:18] VITALS: BP 110/56
[2024-10-03 07:04] VITALS: BP 158/88
[2024-10-03 08:10] LABS: Glucose - Point of Care 143 mg/dl (70-99)
[2024-10-03] MEDS: HEPARIN 500 UNITS IV ×2 (08:40→09:40)
[2024-10-03 08:49] LABS: Hematocrit 29.5 % (37.0-47.0); Hemoglobin 9.8 g/dL (12.0-16.0); Mean Corp Hgb Conc. 33.2 g/dL (33.0-37.0); Mean Corpuscular Hgb 32.3 pg (27.0-31.0); Mean Corpuscular Volume 97.4 fL (81.0-99.0); Mean Platelet Volume 10.5 fL (7.4-10.4); Platelet Count 221 10^3/uL (130-400); Red Blood Cell Count 3.03 10^6/uL (4.20-5.40); Red Cell Dist. Width 17.2 % (11.5-14.5); White Blood Cell Count 9.5 10^3/uL (4.8-10.8)
--- NOTE | 2024-10-03 09:05 | W.PN.VS ---
Today's Communication / Plan
-
Patient seen and examined at bedside with Dr. Fabricio Vergara, below plan reviewed with attending.
Assessment/Plan
-
Assessment: 38-year-old female POD #2 Duplex assisted cannulation of left upper extremity arteriovenous fistula. Left upper extremity fistulogram and central venogram. Balloon angioplasty of perianastomotic stenosis with 5 mm, 6 mm standard
angioplasty balloons and 6 mm high-pressure angioplasty balloon.
Plan:
Patient and HD nurse agreeable to attempt 1 more time at HD today via AV fistula, if unsuccessful at cannulation then would recommend placement of tunneled catheter to allow left upper extremity AV fistula to rest as hematoma may be making it
challenging to find access points.
Subjective Data
-
Date of Service: October 03, 2024
Patient seen and examined at bedside, does endorse frustration given multiple attempts at AV fistula access and her prior experience at [facility] when her AV graft became infected. She also was concerned because she no longer wants to stay
in the hospital as she has small children at home. Dr. Fabricio Vergara was at bedside with HD nurse and indicated to nurse best points of access for HD today.
Objective Data
-
Vital Signs
Temp Pulse Resp BP Pulse Ox
98.2 F 89 17 158/88 99
10/03/24 07:04 10/03/24 07:04 10/03/24 07:04 10/03/24 07:04 10/03/24 07:04
Intake and Output
10/02/24 10/03/24 10/04/24
06:59 06:59 06:59
Intake Total 690 / 690 240 / 240
Balance 690 / 690 240 / 240
Intake:
Oral fluids 240 / 240 240 / 240
IV fluids (Total) 450 / 450
NSS 50 / 50
Lab Results
10/03/24 08:40
Calcium 9.2 mg/dl (8.4-10.2) 10/02/24 07:23
Physical Exam
-
No apparent distress, resting bed comfortably
No tachycardia
No dyspnea
Left upper extremity AV fistula with palpable thrill, +1 radial pulse, left hand warm, there is now a scant hematoma to the medial side of her AV fistula suspect this occurred overnight after multiple access attempts yesterday.
[2024-10-03] MEDS: RETACRIT 2000 UNITS IV (09:14)
[2024-10-03] MEDS: PROTONIX 20 MG PO ×2 (09:20→21:25)
[2024-10-03] MEDS: RENVELA 2400 MG PO ×3 (09:20→16:59)
[2024-10-03] MEDS: HEPARIN 5000 UNITS SC ×3 (09:20→23:58)
--- NOTE | 2024-10-03 09:23 | W.PN.NEPH.HD ---
Assessment
-
Patient seen on dialysis
Systolic blood pressure at 146 at current UF of 2 kg
AV fistula very difficult to access, nursing does not have full confidence that this will be usable as outpatient
Progress Note - Hemodialysis
-
Date of Service: October 03, 2024
Duration: 30 minutes and 3 hours
Potassium Bath: 2
Calcium Bath: 2.5
Opti-Dialyzer: 160
Ultrafiltration: Other (2 kg)
Blood Flow: 350
Dialysate Flow: 600
Heparin: None
[2024-10-03 09:57] LABS: Blood Urea Nitrogen 38 mg/dl (7-17); Calcium 9.3 mg/dl (8.4-10.2); Carbon Dioxide 27 mmol/L (22-30); Chloride 94 mmol/L (98-107); Estimated Creatinine Clearance 8 ml/min; Glucose 144 mg/dl (70-99); Potassium 4.8 mmol/L (3.5-5.1); Sodium 134 mmol/L (135-145); eGFR 6.59
[2024-10-03] MEDS: MANNITOL 25% 12.5 GRAMS IV (10:35)
--- NOTE | 2024-10-03 11:10 | W.PN.HOSP.TC ---
Today's Communication/Plan
-
Continue current care
Assessment / Plan
Assessment / Plan
Gen-AAOx3, NAD
HEENT-NC, AT, anicteric, clear oral mm
Neck-supple
CV-reg, no M, +S1/S2
Lungs-clear B/L
Abd-soft, NT, ND
Ext-no edema
Musculoskeletal-no cyanosis, clubbing
Skin-warm and dry
Neuro-grossly non-focal
Psych-calm, cooperative
LUE AV fistula malfunction -due to stenosis. Underwent attempt at angioplasty of stenosis 10/01 evening by vascular surgery. Mild improvement noted but still not fully functional according to dialysis nurse. Nephrology to decide on dialysis
catheter placement prior to discharge.
ESRD -on dialysis Tuesday. Currently getting dialysis.
Hyperkalemia -due to ESRD. Improved.
Normocytic anemia -likely due to ESRD. Monitor hemoglobin.
Hypothyroidism -levothyroxine.
Essential hypertension -stable.
GERD -pantoprazole.
DM2 without hyperglycemia -diet controlled.
Celiac disease
Full code
updated at the bedside.
Anticipated Discharge: Within 24 hours
Subjective/Interval History
-
Date of Service: October 03, 2024
Patient seen and examined. No complaints.
Objective Data
-
Labs:
Laboratory Results
10/03/24
08:40
WBC 9.5
Hgb 9.8 L
Hct 29.5 L
Plt Count 221
Sodium 134 L
Potassium 4.8
Chloride 94 L
Carbon Dioxide 27
BUN 38 H
Creatinine 7.5 H*
Glucose 144 H
Calcium 9.3
Vital Signs:
Vital Signs
Temp Pulse Resp BP Pulse Ox
98.2 F 89 17 158/88 99
04/02/25 07:04 10/03/24 07:04 10/03/24 07:04 10/03/24 07:04 10/03/24 07:04
I&O
10/02/24 10/03/24 10/04/24
06:59 06:59 06:59
Intake Total 690 / 690 240 / 240 780 / 780
Balance 690 / 690 240 / 240 780 / 780
Review of Systems
-
Unable to obtain full review of systems at this time due to: Language Barrier
[2024-10-03] MEDS: COREG PO (12:23)
[2024-10-03] MEDS: PROCARDIA XL (EXTENDED RELEASE) PO (12:24)
[2024-10-03 12:42] LABS: Glucose - Point of Care 170 mg/dl (70-99)
[2024-10-03] MEDS: NOVOLOG FLEXPEN-LOW RESISTANCE 1 UNITS SC (14:01)
--- NOTE | 2024-10-03 14:51 | CM ---
Chart reviewed
LUE AV fistula malfunction - angioplasty on 10/01
Difficult to access fistula today per HD nurse - Nephrology following
Plan - anticipate home [facility]
[2024-10-03 15:10] VITALS: BP 120/72
[2024-10-03 16:30] LABS: Glucose - Point of Care 239 mg/dl (70-99)
[2024-10-03] MEDS: NOVOLOG FLEXPEN-LOW RESISTANCE 2 UNITS SC (17:06)
[2024-10-03] MEDS: COREG 12.5 MG PO (21:24)
[2024-10-03 21:25] LABS: Glucose - Point of Care 154 mg/dl (70-99)
[2024-10-03] MEDS: PROCARDIA XL (EXTENDED RELEASE) 60 MG PO (21:25)
[2024-10-03 23:15] VITALS: BP 94/53
[2024-10-04 06:00] VITALS: BMI 23.8
[2024-10-04] MEDS: SYNTHROID 88 MCG PO (06:56)
[2024-10-04] MEDS: RENVELA PO (07:14)
[2024-10-04 07:16] LABS: Glucose - Point of Care 149 mg/dl (70-99)
[2024-10-04] MEDS: NOVOLOG FLEXPEN-LOW RESISTANCE SC ×2 (07:17→12:02)
[2024-10-04 07:20] VITALS: BP 124/76
[2024-10-04] MEDS: COREG 12.5 MG PO (08:24)
[2024-10-04] MEDS: PROTONIX 20 MG PO (08:24)
[2024-10-04] MEDS: TYLENOL 650 MG PO (08:24)
[2024-10-04] MEDS: HEPARIN 5000 UNITS SC (08:25)
[2024-10-04] MEDS: PROCARDIA XL (EXTENDED RELEASE) 60 MG PO (08:25)
[2024-10-04 09:10] VITALS: BP 105/57; BP_SYST 85
--- NOTE | 2024-10-04 11:18 | PTCARENOTE ---
pt down to IR this morning for tunneled HD cath. patient and significant other educated with language line at bedside prior to going down to IR.
[2024-10-04 11:26] VITALS: BP 90/55; BP_SYST 78
[2024-10-04 11:59] VITALS: BP 121/59
[2024-10-04 12:03] LABS: Glucose - Point of Care 142 mg/dl (70-99)
[2024-10-04] MEDS: RENVELA 2400 MG PO (12:41)
--- NOTE | 2024-10-04 13:06 | W.PN.HOSP.TC ---
Today's Communication/Plan
-
Discharge
Assessment / Plan
Assessment / Plan
Gen-AAOx3, NAD
HEENT-NC, AT, anicteric, clear oral mm
Neck-supple
CV-reg, no M, +S1/S2
Lungs-clear B/L
Abd-soft, NT, ND
Ext-no edema
Musculoskeletal-no cyanosis, clubbing
Skin-warm and dry
Neuro-grossly non-focal
Psych-calm, cooperative
LUE AV fistula malfunction -due to stenosis. Underwent attempt at angioplasty of stenosis 10/01 evening by vascular surgery. Mild improvement noted but still not fully functional according to dialysis nurse. Now has tunneled dialysis catheter
placement.
ESRD -on dialysis Tuesday. Plan to use tunneled dialysis catheter for hemodialysis until AV fistula can be addressed by vascular surgery as an outpatient.
Hyperkalemia -due to ESRD. Improved.
Normocytic anemia -likely due to ESRD. Monitor hemoglobin.
Hypothyroidism -levothyroxine.
Essential hypertension -stable.
GERD -pantoprazole.
DM2 without hyperglycemia -diet controlled.
Celiac disease
Full code
Dispo -stable for discharge home today. Discussed with nephrology. To resume her usual dialysis session tomorrow.
32 minutes spent in discharge process.
updated at the bedside.
Anticipated Discharge: Today
Subjective/Interval History
-
Date of Service: October 04, 2024
Patient seen and examined. No complaints.
Objective Data
-
Vital Signs:
Vital Signs
Temp Pulse Resp BP Pulse Ox
97.8 F 77 16 121/59 100
10/04/24 11:59 10/04/24 11:59 10/04/24 11:59 10/04/24 11:59 10/04/24 11:59
I&O
0410/04/24 10/05/24
06:59 06:59 06:59
Intake Total 240 / 240 1260 / 1260 200 / 200
Output Total 0 / 0
Balance 240 / 240 1260 / 1260 200 / 200
Review of Systems
-
History Source: Patient
All other systems: Reviewed and negative
--- NOTE | 2024-10-04 13:15 | W.DS.TRANS ---
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
-
Discharge Instructions:
Discharge Diagnosis/Procedures AV fistula malfunction
Diet 2 Gram Sodium
Activity As tolerated
Driving Restrictions As prior to admission
Bathing Restrictions None
Instructions:
Stand-Alone Forms:
Changes to Home Medications: No
Discharge Medications:
DC Medications w/original date entered in [employer]
pantoprazole 20 mg tablet,delayed release 20 mg PO BID Gastrointestinal issue 03/31/17
sevelamer carbonate 800 mg tablet 2,400 mg PO AC Kidney Disease 01/18/22
levothyroxine 88 mcg tablet (Synthroid) 88 mcg PO DAILY Thyroid 11/17/22
nifedipine 60 mg tablet,extended release 60 mg PO BID Blood Pressure 05/15/24
carvedilol 12.5 mg tablet 12.5 mg PO BID Heart Failure 05/17/24
vitamin B complex-vitamin C 100 mg-folic acid 1 mg tablet (Dialyvite) 1 tab PO DAILY Supplement 07/26/24
ondansetron 8 mg disintegrating tablet 8 mg PO [id number] PRN nausea 10/01/24
Home Medication Changes
Pending Results: No
--- NOTE | 2024-10-04 13:38 | CM ---
Thai speaking patient with Hx ESRD on HD with Dx LUE AV fistula malfunction -due to stenosis. Plan IR today for tunneled HD cath placement. Room air. Per nurse; ambulatory in room.
Spoke with Olivia, patient's sister; the family agrees with discharge today and her sister Celen will pick her up this afternoon.
No CM d/c needs identified.
Plan home today.
== END 2024-10-04 14:24 | disposition home or self-care (01) | DRG 252 ==
LOC: 2 NORTH 19:12
PROVIDERS: Emergency Medicine; Physician Assistant Medical; Radiology Diagnostic Radiology; Specialist; ADMITTING PHYSICIAN Internal Medicine; ATTENDING PHYSICIAN Hospitalist; CONSULT PHYSICIAN Internal Medicine; EMERGENCY PHYSICIAN Student in an Organized Health Care Education/Training Program; OTHER PHYSICIAN Surgery Vascular Surgery
PROC: B51N1ZZ Fluoroscopy of Left Upper Extremity Veins using Low Osmolar Contrast (ICD-10-PCS; 2024-10-01)
PROC: 057A3ZZ Dilation of Left Brachial Vein, Percutaneous Approach (ICD-10-PCS; 2024-10-01)
PROC: 5A1D70Z Performance of Urinary Filtration, Intermittent, Less than 6 Hours Per Day (ICD-10-PCS; 2024-10-02)
PROC: 05HN33Z Insertion of Infusion Device into Left Internal Jugular Vein, Percutaneous Approach (ICD-10-PCS; 2024-10-04)
PROC: B5141ZA Fluoroscopy of Left Jugular Veins using Low Osmolar Contrast, Guidance (ICD-10-PCS; 2024-10-04)
DX: T82.510A Breakdown (mechanical) of surgically created arteriovenous fistula, initial encounter (principal); N18.6 End stage renal disease; I13.2 Hypertensive heart and chronic kidney disease with heart failure and with stage 5 chronic kidney disease, or end stage renal disease; Y71.2 Prosthetic and other implants, materials and accessory cardiovascular devices associated with adverse incidents; Z99.2 Dependence on renal dialysis; E11.22 Type 2 diabetes mellitus with diabetic chronic kidney disease; K21.9 Gastro-esophageal reflux disease without esophagitis; E03.9 Hypothyroidism, unspecified; K90.0 Celiac disease; F32.A Depression, unspecified; F41.9 Anxiety disorder, unspecified; Z87.440 Personal history of urinary (tract) infections; Z90.5 Acquired absence of kidney; D63.1 Anemia in chronic kidney disease; E83.39 Other disorders of phosphorus metabolism; E87.5 Hyperkalemia; K76.0 Fatty (change of) liver, not elsewhere classified; Z79.890 Hormone replacement therapy; Z79.899 Other long term (current) drug therapy
CPT/HCPCS: 36558; 36598; 36902; 76937; 77001; 80048; 82962; 85025; 85027; 86850; 86900; 86901; 93990; 99152; 99153; 99285; C1725; C1750; C1769; C1894; G0257; P9047; Q5106

== ENCOUNTER 2024-10-10 06:43 | Emergency (ER) | payer MEDICAID, SELFPAY ==
[2024-10-10] VITALS (7 sets, daily range): BP systolic 92–139; BP diastolic 51–87; BMI 28.0
--- NOTE | 2024-10-10 07:00 | ED.GENMED ---
History of Present Illness
General
Chief Complaint: Catheter/Tube Problem
Source: patient and other (Language line [id number] )
Exam Limitations: none
Time Seen by Provider: 10/10/24 06:59
Nursing documentation reviewed up to this point in time: agreed with
History of Present Illness
History of Present Illness:
Patient is a 38-year-old female with history of end-stage renal disease, normocytic anemia essential hypertension diabetes status post left upper extremity fistulogram and central venogram with balloon angioplasty (10/03) and Tunneled left IJ
hemodialysis catheter placement (10/04). Patient reports the following day after the left IJ catheter was placed on Tuesday she started with dizziness. She describes this as room spinning sensation associated left-sided neck pain and left-sided
headache. It is gotten progressively worse which prompted patient to come to the ER. She denies any associated nausea vomiting.
She denies any blurry vision chest pain shortness of breath recent illness fever chills. She did go to dialysis Tuesday and this left IJ catheter site was used. She does not make urine.
No prior history of vertigo. She denies any trauma. She is not on anticoagulation.
Past History
Past History
ED Past Medical History: GERD, HTN, IDDM, Renal failure (End stage renal disease, dialysis dependent) and Hypothyroidism
ED Past Surgical History: Urological (left nephrectomy)
Social History
Tobacco: Non-smoker
Alcohol: None
Drug: None
Personal:
Living: with family
Employment: Not employed
Family History
Family History: Other (Parents are diabetics)
Review of Systems
Review of Systems
Allergies reviewed?: Yes
All Other Systems: ROS reviewed and negative except as documented in HPI and ROS
Constitutional: Reports no symptoms
Respiratory: Reports no symptoms
Cardiac: Reports no symptoms
ABD/GI: Reports no symptoms
: Reports no symptoms
Musculoskeletal: Reports other (left sided neck pain )
Skin: Reports no symptoms
Neurological: Reports dizzy and headache
Psychiatric: Reports no symptoms
Phy Exam
General Physical Exam
General Presentation: no apparent distress
General age: appears stated age
General Skin: warm and dry
General Habitus: normal
General Mental: alert
General Hydration: appears well hydrated
Pulmonary Exam
Pulmonary Exam: lungs clear and no respiratory distress
Gastrointestinal Exam
Gastrointestinal Exam: non tender and soft
Neurological Exam
Neurological Exam: alert, oriented x3, no motor deficits and no sensory deficits
Cerebellar
Cerebellar Function: normal finger to nose
Skin Exam
Skin Exam: normal color and other (Left anterior chest with catheter in place no surrounding erythema)
Psychiatric Exam
Psychiatric Exam: normal mood/affect
Course
Orders/Labs/Results
Orders:
Orders
10/10/24 07:21
CT Head & Neck Angio W/wo IV Urgent
Comment:
Reason For Exam: vertigo, headache, left neck pain
10/10/24 07:22
IV Insert/Care/Rem.- Treatment PRN
10/10/24 07:26
diazePAM [Valium Injection] 2 mg IV NOW STA
10/10/24 07:28
0.9% Sodium Chloride 500 ml [Nss] 500 ml IV BOLUS
10/10/24 07:50
Test Result ONCE
10/10/24 08:49
Meclizine [Antivert] 25 mg PO NOW STA
10/10/24 09:10
Complete Blood Count/With Diff Urgent
Comprehensive Metabolic Panel Urgent
HCG, Serum Qualitative Screen Urgent
Abnormal Lab Results
10/10/24
09:10
RBC 3.24 L 10^6/uL
(4.20-5.40)
Hgb 10.0 L g/dL
(12.0-16.0)
Hct 31.5 L %
(37.0-47.0)
MCHC 31.7 L g/dL
(33.0-37.0)
RDW 15.8 H %
(11.5-14.5)
MPV 10.8 H fL
(7.4-10.4)
Absolute Neuts (auto) 7.2 H 10^3/uL
(1.4-6.5)
Absolute Lymphs (auto) 1.1 L 10^3/uL
(1.2-3.4)
Neutrophils % 78.5 H %
(42.2-75.2)
Lymphocytes % 11.5 L %
(20.5-51.1)
BUN 34 H mg/dl
(7-17)
Creatinine 8.5 H* mg/dL
(0.6-1.0)
Glucose 140 H mg/dl
(70-99)
Alkaline Phosphatase 225 H U/L
(38-126)
10/10/24 09:10
10/10/24 09:10
Vital Signs
Initial and Last Documented VS:
Initial Vital Signs
Temp Pulse Resp BP Pulse Ox
98.0 F 92 16 126/87 100
10/10/24 06:50 10/10/24 06:50 10/10/24 06:50 10/10/24 06:50 10/10/24 06:50
Last Documented Vital Signs
Temp Pulse Resp BP Pulse Ox
98.0 F 95 11 139/77 100
10/10/24 06:50 10/10/24 11:53 10/10/24 11:53 10/10/24 11:53 10/10/24 10:00
Head Gauge Unit Operator consulted with Physician
Head Gauge Unit Operator consulted with physician?: Yes
Name of Physician Consulted: Crisetl
MDM/Problems Addressed
MDM/Problems Addressed:
Patient is a 38-year-old female with chronic medical issues including renal failure dialysis. As documented patient recently had balloon angioplasty of her left arm fistula October 03 and did have a left IJ for dialysis placed October 04. She reports
since Tuesday for the past several days she has had left-sided headache and neck pain with dizziness. She describes room spinning. She denies any trauma. No blood thinners. All history was obtained via language line. Patient presents awake alert
she is nontoxic-appearing no acute distress denies any fevers and is afebrile. Labs reviewed. Normal white count stable hemoglobin elevated renal function(chronic renal disease did not have dialysis today with a nml potassium).
no neuro deficits on exam. case d/c w/ DR Fam, cta head and neck done and negative
Patient was monitored here given Valium feeling much better ambulated with a steady gait stable for discharge home
Patient to have dialysis tomorrow no clear cause of patient's symptoms however she is well-appearing. Patient has had episodes of dizziness in the past as documented. stable for discharge home.
Chronic conditions affecting care:
ESRD on HD
*Radiology
Radiology exam reviewed: radiology read reviewed
*Pulse Oximetry
Patient hypoxic: no
*Critical Care Note
Total Time (30-74mins, 75-104mins- exclusive of procedures): Not Applicable
ED Attending Note
-
Portions of this chart may have been created with voice recognition software.� Occasional wrong word or��sound alike� substitutions may have occurred due to the inherent limitations of voice recognition software.
Discharge Plan
Departure
Patient Disposition: Home (Routine Discharge)
Date of Disposition: 10/10/24
Time of Disposition: 12:01
Patient with high blood pressure during this ER visit?: Yes
Condition: Fair
Covid-19: Not Applicable
Discharge Problem:
Vertigo
Instructions: Vertigo (a type of dizziness)
Prescriptions:
New
meclizine 25 mg tablet
25 mg PO BID PRN (Reason: dizziness) Qty: 14 0RF
No Action
pantoprazole 20 MG tablet,delayed release (DR/EC)
20 mg PO BID
sevelamer carbonate 800 mg Tablet
2,400 mg PO AC
levothyroxine [Synthroid] 88 mcg Tablet
88 mcg PO DAILY
nifedipine 60 mg Tablet Extended Release
60 mg PO BID
carvedilol 12.5 mg Tablet
12.5 mg PO BID
Dialyvite 100-1 mg Tablet
1 tab PO DAILY
ondansetron 8 mg Tablet,Disintegrating
8 mg PO [id number] PRN (Reason: nausea)
acetaminophen [Tylenol] 325 mg Tablet
650 mg PO Q6HPRN PRN (Reason: mild pain)
sevelamer carbonate 800 mg Tablet
800 mg PO DAILYPRN PRN (Reason: snacks)
Referrals:
Susannah Emerson PA [Family Provider] -
Activity Restrictions/Additional Instructions:
Follow-up with your family doctor in the next several days for reevaluation of your symptoms.
return if any worsening of symptoms
Please go to dialysis as scheduled
Interventions
Interventions:
*Risk Screen - Suicide Last Done: 10/10/24 06:50
*General Assessment Last Done: 10/10/24 07:25
*Neglect/Abuse Screening Last Done: 10/10/24 06:50
*ED- Fall Risk Assessment Last Done: 10/10/24 07:25
*ED COVID-19 Vaccine History Last Done: 10/10/24 07:25
*Nursing Disposition Last Done: 10/10/24 12:21
WD-Khlueb-Cjzuqptwcc Assessment Last Done: 10/10/24 11:47
ED-Female Genitourinary Assessment Last Done: 10/10/24 11:47
Discharge Date and Time
Discharge Date/Time: 10/10/24 12:21
Print Language: ESTONIAN
[2024-10-10] MEDS: VALIUM INJECTION 2 MG IV (09:13)
[2024-10-10] MEDS: NSS 500 IV (09:14)
[2024-10-10 09:20] LABS: % Eosinophils 3.9 % (0-6); % Immature Granulocytes 0.4 % (0-0.5); % Lymphocytes 11.5 % (20.5-51.1); % Monocytes 4.7 % (1.7-9.3); % Neutrophils 78.5 % (42.2-75.2); Absolute Basophils 0.1 10^3/uL (0-0.2); Absolute Eosinophils 0.4 10^3/uL (0-0.7); Absolute Lymphocytes 1.1 10^3/uL (1.2-3.4); Absolute Monocytes 0.4 10^3/uL (0.1-0.6); Absolute Neutrophils 7.2 10^3/uL (1.4-6.5); Hematocrit 31.5 % (37.0-47.0); Mean Corp Hgb Conc. 31.7 g/dL (33.0-37.0); Mean Corpuscular Hgb 30.9 pg (27.0-31.0); Mean Corpuscular Volume 97.2 fL (81.0-99.0); Mean Platelet Volume 10.8 fL (7.4-10.4); Nucleated Red Blood Cells % 0 %; Platelet Count 195 10^3/uL (130-400); Red Blood Cell Count 3.24 10^6/uL (4.20-5.40); Red Cell Dist. Width 15.8 % (11.5-14.5); White Blood Cell Count 9.1 10^3/uL (4.8-10.8)
[2024-10-10 09:29] LABS: HCG, Serum Qualitative Screen Negative
[2024-10-10 09:42] LABS: ALT (SGPT) 30 U/L (0-35); AST (SGOT) 26 U/L (14-36); Albumin 4.6 g/dl (3.5-5.0); Alkaline Phosphatase 225 U/L (38-126); Blood Urea Nitrogen 34 mg/dl (7-17); Calcium 9.2 mg/dl (8.4-10.2); Carbon Dioxide 24 mmol/L (22-30); Chloride 98 mmol/L (98-107); Estimated Creatinine Clearance 8 ml/min; Glucose 140 mg/dl (70-99); Potassium 4.6 mmol/L (3.5-5.1); Sodium 137 mmol/L (135-145); Total Bilirubin 0.7 mg/dl (0.2-1.3); Total Protein 7.1 g/dl (6.3-8.2); eGFR 5.67
== END 2024-10-10 12:21 | disposition home or self-care (01) ==
LOC: EMR 06:43
PROVIDERS: Nurse Practitioner; EMERGENCY PHYSICIAN Emergency Medicine; FAMILY PHYSICIAN Physician Assistant
DX: R42 Dizziness and giddiness (principal); E11.22 Type 2 diabetes mellitus with diabetic chronic kidney disease; I12.0 Hypertensive chronic kidney disease with stage 5 chronic kidney disease or end stage renal disease; N18.6 End stage renal disease; Z99.2 Dependence on renal dialysis; E03.9 Hypothyroidism, unspecified; Z79.4 Long term (current) use of insulin; Z90.5 Acquired absence of kidney
CPT/HCPCS: 96374; 96361; 99284; 70496; 70498; 80053; 84703; 85025; Q9967

== ENCOUNTER → 2024-10-20 08:48 | Outpatient (REF) | payer MEDICAID, SELFPAY ==
[2024-10-20 10:09] LABS: ALT (SGPT) 37 U/L (0-35); AST (SGOT) 37 U/L (14-36); Albumin 4.9 g/dl (3.5-5.0); Alkaline Phosphatase 247 U/L (38-126); Blood Urea Nitrogen 20 mg/dl (7-17); Calcium 10.3 mg/dl (8.4-10.2); Carbon Dioxide 32 mmol/L (22-30); Chloride 89 mmol/L (98-107); Glucose 133 mg/dl (70-99); HDL Cholesterol 100 mg/dl; LDL Cholesterol, Calculated 82 mg/dl; Potassium 5.3 mmol/L (3.5-5.1); Sodium 137 mmol/L (135-145); Total Bilirubin 0.7 mg/dl (0.2-1.3); Total Cholesterol 214 mg/dl (50-199); Total Protein 8.5 g/dl (6.3-8.2); Triglyceride 162 mg/dl (10-149); Very Low Density Lipoprotein 32 mg/dl (0-30); eGFR 9.77
[2024-10-20 10:21] LABS: Glycohemoglobin (HgbA1c) 5.2 % (4.0-5.6)
== END ==
LOC: REG 08:48
PROVIDERS: ATTENDING PHYSICIAN Physician Assistant
DX: Z99.2 Dependence on renal dialysis (principal); R74.8 Abnormal levels of other serum enzymes; R12 Heartburn; N80.129 Deep endometriosis of ovary, unspecified ovary; N18.6 End stage renal disease; K80.20 Calculus of gallbladder without cholecystitis without obstruction; K76.0 Fatty (change of) liver, not elsewhere classified; K59.04 Chronic idiopathic constipation; K21.9 Gastro-esophageal reflux disease without esophagitis; I77.0 Arteriovenous fistula, acquired; I12.9 Hypertensive chronic kidney disease with stage 1 through stage 4 chronic kidney disease, or unspecified chronic kidney disease; F41.9 Anxiety disorder, unspecified; F33.9 Major depressive disorder, recurrent, unspecified; E11.22 Type 2 diabetes mellitus with diabetic chronic kidney disease; E03.9 Hypothyroidism, unspecified; I25.10 Atherosclerotic heart disease of native coronary artery without angina pectoris
CPT/HCPCS: 36415; 80053; 80061; 83036

== ENCOUNTER → 2024-11-15 11:55 | Outpatient (REF) | payer MEDICAID, SELFPAY ==
[2024-11-15 12:52] VITALS: BP 92/53; BP_SYST 90
[2024-11-15 13:15] VITALS: BP 91/58
== END ==
LOC: RADI 11:55
PROVIDERS: ATTENDING PHYSICIAN Nurse Practitioner
DX: Z49.01 Encounter for fitting and adjustment of extracorporeal dialysis catheter (principal); N18.6 End stage renal disease
CPT/HCPCS: 36589

== ENCOUNTER 2025-01-31 13:36 | Outpatient (RCR) | payer MEDICAID, SELFPAY | END 2025-01-31 23:59 | disposition home or self-care (01) | LOC: RPT 13:36 | PROVIDERS: ATTENDING PHYSICIAN Physician Assistant | DX: R42 Dizziness and giddiness (principal); Z73.6 Limitation of activities due to disability; R26.2 Difficulty in walking, not elsewhere classified | CPT/HCPCS: 97112; 97163 ==

== ENCOUNTER 2025-02-28 11:04 | Outpatient (RCR) | payer MEDICAID, SELFPAY | END 2025-02-28 23:59 | disposition home or self-care (01) | LOC: RPT 11:04 | PROVIDERS: ATTENDING PHYSICIAN Physician Assistant | DX: R42 Dizziness and giddiness (principal); Z73.6 Limitation of activities due to disability; R26.2 Difficulty in walking, not elsewhere classified | CPT/HCPCS: 97112 ==

== ENCOUNTER 2025-03-28 13:17 | Outpatient (RCR) | payer MEDICAID, SELFPAY | END 2025-03-28 23:59 | disposition home or self-care (01) | LOC: RPT 13:17 | PROVIDERS: ATTENDING PHYSICIAN Physician Assistant | DX: R42 Dizziness and giddiness (principal); Z73.6 Limitation of activities due to disability; R26.2 Difficulty in walking, not elsewhere classified | CPT/HCPCS: 97112 ==

== ENCOUNTER 2025-03-28 21:39 | Emergency (ER) | payer MEDICAID, SELFPAY ==
[2025-03-28 21:46] VITALS: BP 144/103
[2025-03-29 00:29] VITALS: BP 100/67
[2025-03-29 01:08] LABS: Hematocrit 32.9 % (37.0-47.0); Hemoglobin 10.7 g/dL (12.0-16.0); Mean Corp Hgb Conc. 32.5 g/dL (33.0-37.0); Mean Corpuscular Volume 95.6 fL (81.0-99.0); Nucleated Red Blood Cells % 0 %; Platelet Count 163 10^3/uL (130-400); Red Cell Dist. Width 13.7 % (11.5-14.5)
[2025-03-29 01:13] VITALS: BP 104/55
[2025-03-29 01:38] LABS: Troponin I < 0.012 ng/ml
--- NOTE | 2025-03-29 02:11 | ED.GENMED ---
History of Present Illness
General
Chief Complaint: Anxiety
Source: patient
Exam Limitations: none
Time Seen by Provider: 03/29/25 00:28
Nursing documentation reviewed up to this point in time: agreed with
History of Present Illness
History of Present Illness:
Note:
CHIEF COMPLAINT(S)
Concerns of panic or anxiety attack.
HISTORY OF PRESENT ILLNESS
The patient is a 39-year-old female with a history of hypertension who presented with concerns of a possible panic or anxiety attack. She reported that her blood pressure was low for her usual range, measured at 104/55 mmHg. However, at the time of
evaluation, she was asymptomatic, denying any chest pain or shortness of breath. There was no specific event that triggered the visit other than the perceived low blood pressure. The patient mentioned that she had taken all her prescribed medication
prior to the onset of symptoms.
PAST MEDICAL AND SURGICAL HISTORY
History of hypertension, diabetes, and thyroid issues. The patient is also under the care of a consumer insights specialist.
CHRONIC MEDICAL CONDITIONS SIGNIFICANTLY AFFECTING CARE
Hypertension, diabetes, thyroid disorder.
MEDICATIONS
The patient is currently on medication for high blood pressure, thyroid disorder, and reflux.
PHYSICAL EXAM
General: Alert, no acute distress.
Skin: Warm, dry.
Head: Normocephalic, atraumatic.
Neck: Supple, trachea midline.
Eye Ears, Nose, Mouth and Throat: Oral mucosa moist.
Cardiovascular: Normal peripheral perfusion, No edema.
Respiratory: Respirations are non-labored.
Gastrointestinal : Abdomen nondistended.
Back: Normal range of motion, Normal alignment.
Musculoskeletal: Normal ROM, normal strength.
Neurological: Alert and oriented to person, place, time, and situation, No focal neurological deficit observed.
Psychiatric: Cooperative, appropriate mood & affect.
PLAN
The patients labs appear normal, and after a brief exam, she is to be discharged home. Instructions will be printed in Vietnamese for her convenience.
DIFFERENTIAL DIAGNOSIS
The Differential Diagnosis includes, in no particular order and is not limited to:
1. Panic attack
2. Anxiety disorder
3. Hypotension
4. Medication side effects
5. Thyroid disorder
6. Diabetes-related autonomic instability
7. Cardiological arrhythmia
8. Reflux disease exacerbation
9. Electrolyte imbalance
10. Pulmonary embolism
Disposition:
SUMMARY OF ENCOUNTER
The patient is a 39-year-old female with a history of hypertension, diabetes, and thyroid issues, who presented to the emergency department due to concerns about low blood pressure and a brief episode of chest pain, which had resolved before
presentation. She is on dialysis and reported that her current blood pressure returned to her normal range, and she is currently asymptomatic. The patient had no chest pain, shortness of breath, or other acute symptoms at the time of evaluation. She
felt that her feet were cold and experienced nausea and vomiting; however, these concerns were evaluated during the visit.
DISPOSITION
The patient will be discharged home with instructions in Vietnamese for her convenience.
ASSESSMENT
Given the resolved nature of her symptoms, the assessment likely involves monitoring her blood pressure and ensuring her dialysis treatment proceeds as scheduled.
PLAN
The patient is to be discharged home with instructions for outpatient monitoring of her blood pressure and continuation of her scheduled dialysis in the morning.
INDEPENDENT REVIEW OF LABS AND INTERPRETATION OF TESTS
N/A as there were no specific lab results mentioned.
PATIENT EDUCATION AND COUNSELING
The patient was educated about monitoring her blood pressure and understanding signs and symptoms to watch for, particularly due to her dialysis and underlying conditions.
FOLLOW-UP INSTRUCTIONS
She is due to continue her scheduled dialysis in the morning.
MEDICATION RECONCILIATION
The patient remains on her prescribed medications for hypertension, thyroid disorder, and reflux management.
MEDICAL DECISION MAKING
-Complexity of Data Reviewed: Chronic conditions affecting care include hypertension, diabetes, thyroid disorder.
Differential diagnosis includes:
1. Panic attack
2. Anxiety disorder
3. Hypotension
4. Medication side effects
5. Thyroid disorder
6. Diabetes-related autonomic instability
7. Cardiological arrhythmia
8. Reflux disease exacerbation
9. Electrolyte imbalance
10. Pulmonary embolism
-Risk:
Consideration of Admission/Observation: Escalation of care, including admission/observation, was considered given the complexity and risk of the patients presenting complaint, exam findings, and/or their underlying comorbidities. However,
ultimately, I feel the patient is safe for outpatient management with close follow-up. Reasoning: Work-up reassuring, does not reveal any acute life/organ-threatening processes, patients symptoms well controlled upon reevaluation, reexamination is
reassuring, vitals are stable, patient agreeable with discharge, reliable for follow-up.
DIAGNOSIS
Z71.1 - Persons encountering health services for observation and evaluation for suspected conditions not found (concern for hypotension).
I10 - Essential (primary) hypertension.
E11.9 - Type 2 diabetes mellitus without complications.
Past History
Past History
ED Past Medical History: GERD, HTN, IDDM, Renal failure (End stage renal disease, dialysis dependent) and Hypothyroidism
ED Past Surgical History: Urological (left nephrectomy)
Social History
Tobacco: Non-smoker
Alcohol: None
Drug: None
Personal:
Living: with family
Employment: Not employed
Family History
Family History: Other (Parents are diabetics)
Phy Exam
Physical Exam
Physical Exam:
.
Course
Orders/Labs/Results
Orders:
Orders
03/29/25 00:42
Electrocardiogram (*1) Urgent
Reason for Study: Chest Pain
EKG- Treatment ONCE
03/29/25 00:49
IV Insert/Care/Rem.- Treatment PRN
03/29/25 00:52
CXR2 [CR Chest - 2 Views ] Urgent
Comment:
Reason For Exam: chest pain
03/29/25 01:03
Complete Blood Count/With Diff Urgent
Troponin I Urgent
03/29/25 01:48
Comprehensive Metabolic Panel Urgent
Abnormal Lab Results
03/29/25
01:03
RBC 3.44 L 10^6/uL
(4.20-5.40)
Hgb 10.7 L g/dL
(12.0-16.0)
Hct 32.9 L %
(37.0-47.0)
MCH 31.1 H pg
(27.0-31.0)
MCHC 32.5 L g/dL
(33.0-37.0)
MPV 10.9 H fL
(7.4-10.4)
Eosinophils % 6.5 H %
(0-6)
03/29/25 01:03
Vital Signs
Initial and Last Documented VS:
Initial Vital Signs
Temp Pulse Resp BP Pulse Ox
98.4 F 103 20 144/103 100
03/28/25 21:46 03/28/25 21:46 03/28/25 21:46 03/28/25 21:46 03/28/25 21:46
Last Documented Vital Signs
Temp Pulse Resp BP Pulse Ox
98.1 F 86 16 104/55 100
03/29/25 00:29 03/29/25 01:45 03/29/25 00:29 03/29/25 01:13 03/29/25 01:45
*Pulse Oximetry
SaO2: 100
Oxygen Mode of Delivery: Room air
Patient hypoxic: no
*Critical Care Note
Total Time (30-74mins, 75-104mins- exclusive of procedures): Not Applicable
ED Attending Note
-
Portions of this chart may have been created with voice recognition software.� Occasional wrong word or��sound alike� substitutions may have occurred due to the inherent limitations of voice recognition software.
Discharge Plan
Departure
Patient Disposition: Home (Routine Discharge)
Date of Disposition: 03/29/25
Time of Disposition: 02:14
Patient with high blood pressure during this ER visit?: No
Discharge Problem:
Palpitations, Anxiety, ESRD (end stage renal disease) on dialysis
Instructions: Anxiety, Adult (DC), Palpitations - ED (DC)
Prescriptions:
No Action
pantoprazole 20 MG tablet,delayed release (DR/EC)
20 mg PO BID
sevelamer carbonate 800 mg Tablet
2,400 mg PO AC
levothyroxine [Synthroid] 88 mcg Tablet
88 mcg PO DAILY
nifedipine 60 mg Tablet Extended Release
60 mg PO BID
carvedilol 12.5 mg Tablet
12.5 mg PO BID
Dialyvite 100-1 mg Tablet
1 tab PO DAILY
ondansetron 8 mg Tablet,Disintegrating
8 mg PO [id number] PRN (Reason: nausea)
acetaminophen [Tylenol] 325 mg Tablet
650 mg PO Q6HPRN PRN (Reason: mild pain)
sevelamer carbonate 800 mg Tablet
800 mg PO DAILYPRN PRN (Reason: snacks)
meclizine 25 mg tablet
25 mg PO BID PRN (Reason: dizziness) Qty: 14 0RF
torsemide 5 mg Tablet
5 mg PO DAILY
cholecalciferol (vitamin D3) [Vitamin D3] 25 mcg (1,000 unit) Capsule
25 mcg PO DAILY
Mircera 50 mcg/0.3 mL Syringe
50 mcg SC Q2W
Referrals:
Cheryl Thomas PA-C [Family Provider, Family Practice]
Activity Restrictions/Additional Instructions:
Thank You for choosing [facility].
It was a pleasure meeting you and taking part in your care. We hope for your continued healing and wellness.
Please read discharge instructions in their entirety. However, they are for general education and may not describe your exact diagnosis at discharge. Information on your ER visit and medical conditions were discussed with you along with appropriate
follow up information...
If indicated, please take your medications as instructed and indicated on discharge paperwork.
Please schedule a follow up appointment as directed. Call to schedule an appointment
Please return to the emergency department with ANY change in, persisting, or worsening of symptoms. If any of your symptoms do not improve, or persist, or become more severe within 6-12 hours, please return to the emergency department for further
care.
Please return to the emergency department if you develop a headache, neck pain/stiffness, fever greater than 100.4F, chest pain, shortness of breath, persistent nausea, vomiting, slurred speech, difficulty walking, numbness/tingling, weakness, signs
of infection or any other symptoms that are worrisome to you.
If you have any questions or concerns please do not hesitate to call the Hospital at .
Interventions
Interventions:
*Risk Screen - Suicide Last Done: 03/28/25 21:46
*General Assessment Last Done: 03/29/25 00:25
*Neglect/Abuse Screening Last Done: 03/28/25 21:46
*ED- Fall Risk Assessment Last Done: 03/29/25 00:25
*ED COVID-19 Vaccine History Last Done: 03/29/25 00:25
ED-Psychological Assessment Last Done: 03/29/25 00:34
Discharge Date and Time
Print Language: PARAGUAYAN
[2025-03-29 02:14] LABS: ALT (SGPT) 32 U/L (0-35); AST (SGOT) 34 U/L (14-36); Albumin 4.5 g/dl (3.5-5.0); Alkaline Phosphatase 190 U/L (38-126); Blood Urea Nitrogen 48 mg/dl (7-17); Calcium 8.9 mg/dl (8.4-10.2); Carbon Dioxide 24 mmol/L (22-30); Chloride 98 mmol/L (98-107); Glucose 131 mg/dl (70-99); Potassium 5.3 mmol/L (3.5-5.1); Sodium 135 mmol/L (135-145); Total Protein 7.2 g/dl (6.3-8.2); eGFR 4.81
[2025-03-29 02:21] VITALS: BP 102/47
== END 2025-03-29 02:42 | disposition home or self-care (01) ==
LOC: EMR 21:39
PROVIDERS: EMERGENCY PHYSICIAN Student in an Organized Health Care Education/Training Program; FAMILY PHYSICIAN Physician Assistant
DX: R00.2 Palpitations (principal); F41.9 Anxiety disorder, unspecified; E10.22 Type 1 diabetes mellitus with diabetic chronic kidney disease; I12.0 Hypertensive chronic kidney disease with stage 5 chronic kidney disease or end stage renal disease; N18.6 End stage renal disease; Z99.2 Dependence on renal dialysis; E03.9 Hypothyroidism, unspecified; K21.9 Gastro-esophageal reflux disease without esophagitis; Z90.5 Acquired absence of kidney; Z83.3 Family history of diabetes mellitus
CPT/HCPCS: 99284; 71046; 80053; 84484; 85025; 93005

== ENCOUNTER 2025-04-06 16:22 | Inpatient (IN) | payer MEDICAID, SELFPAY ==
[2025-04-06 12:54] VITALS: BP 149/101
--- NOTE | 2025-04-06 13:16 | ED.GENMED ---
History of Present Illness
<Jaja Morgan PA-C - Last Filed: 04/06/25 16:35>
General
Chief Complaint: Catheter/Tube Problem
Source: patient
Exam Limitations: none
Time Seen by Provider: 04/06/25 13:01
History of Present Illness
History of Present Illness:
39yoF with a history of ESRD on hemodialysis M/W/F, type 2 diabetes,hypertension, and hypothyroidism presenting for an AV fistula issue. Patient has a left upper extremity AV fistula in place. The dialysis center was unable to access the fistula
yesterday due to a malfunction. She only had 15 minutes of treatment. She returned to the dialysis center today to reattempt access which was unsucessful and she was told to go to the ED for evaluation. Her last dialysis session was on Tuesday
(3 days ago). She underwent cannulation of LUE AV fistula with fistulogram and balloon angioplasy of perianastomotic stenosis with Dr. Vergara on 10/01/24.
Past History
<Jaja Morgan PA-C - Last Filed: 04/06/25 16:35>
Past History
ED Past Medical History: GERD, HTN, IDDM, Renal failure (End stage renal disease, dialysis dependent) and Hypothyroidism
ED Past Surgical History: Urological (left nephrectomy)
Social History
Tobacco: Non-smoker
Alcohol: None
Drug: None
Personal:
Living: with family
Employment: Not employed
Family History
Family History: Other (Parents are diabetics)
Phy Exam
<Jaja Morgan PA-C - Last Filed: 04/06/25 16:35>
Physical Exam
Physical Exam:
Chronically ill appearing, no apparent distress
General Physical Exam
General Presentation: well appearing and no apparent distress
General Skin: warm and dry
General Habitus: normal
General Mental: alert
ENT Exam
ENT Exam: normocephalic
Pulmonary Exam
Pulmonary Exam: no respiratory distress
Neurological Exam
Neurological Exam: alert
Tuan Coma Scale
Eye Opening: Spontaneous
Verbal Response: Oriented
Motor Response: Obeys Commands
GCS Total Score: 15
Musculoskeletal Exam
Musculoskeletal Exam: other (LUE fistula noted. Palpable thrill distally, no thrill proximally )
Skin Exam
Skin Exam: normal color and warm/dry
Psychiatric Exam
Psychiatric Exam: normal mood/affect
Course
<Jaja Morgan PA-C - Last Filed: 04/06/25 16:35>
Orders/Labs/Results
Orders:
Orders
04/06/25 13:13
Hemodialysis Graft US [US Hemodialysis Graft] Urgent
Comment:
Reason For Exam: fistula malfunction
04/06/25 13:41
Basic Metabolic Panel Urgent
Complete Blood Count/With Diff Urgent
Magnesium Urgent
Phosphorus Urgent
Comment: MAG & PHOS ADDED ON BY FLOOR 4:10PM 04-06-25
04/06/25 14:[address] Non Medication Order As Directed
Physician Order: Okay to use R arm for IV placement
Above order entered?: Yes
04/06/25 14:59
Potassium Urgent
04/06/25 15:29
Vascular Surgery Consult Urgent
Consulting Provider: Sandee Noyola
Was physician already notified: Yes
04/06/25 15:31
Electrocardiogram (*1) Urgent
Reason for Study: Other
Other Reason for Exam: hyperkalemia
Cardiac Monitoring- Treatment ONCE
EKG- Treatment ONCE
Albuterol Sulfate [Ventolin Nebules] 10 mg INH R NOW STA
Dextrose 50%-Water [Dextrose 50% Syringe] 12.5 grams IV [id number] PRN
Dextrose 50%-Water [Dextrose 50% Syringe] 25 grams IV NOW STA
Insulin Human Regular [Novolin R] 5 units IV NOW STA
Sodium Bicarbonate 50 meq IV NOW STA
04/06/25 15:32
Bedside Glucose PRE IV Insulin- HyperK+ NOW
04/06/25 15:36
Sodium Zirconium Cyclosilicate [Lokelma] 10 gram PO NOW STA
04/06/25 15:57
Calcium Gluconate 1 gram/100mL [Calcium Gluconate] 1 gram in 100 ml IV ONCE
Carvedilol [Coreg] 12.5 mg PO NOW STA
NIFEdipine EXTENDED RELEASE [Procardia Xl (Extended Release)] 60 mg PO NOW STA
04/06/25 16:04
NEPHROLOGY CONSULT Routine
Consulting Provider: Frida Varela
Was physician already notified: Yes
Reason for consult: LUE fistula clogged
SURGICAL CONSULT Routine
Consulting Provider: Sandee Noyola
Was physician already notified: Yes
Reason for consult: LUE av fistula clogged
04/06/25 16:05
Admit/Transfer Patient As Directed
Co-Sign Provider:
Level of Care: Inpatient admission
Assign to:: Telemetry
Physician / Group: rosetta nguyen
Diagnosis: clogged av fistual LUE, ESRD dialysis, hyperK, HTN
Reason for Telemetry: Arrhythmia
Date to Stop Telemetry: 04/09/25
Time to Stop Telemetry: 11:00
Reason for Hospitalization: clogged av fistual LUE, ESRD dialysis, hyperK, HTN
Expected length of stay greater than two midnights?: Yes
ELOS- Estimated Length of Stay in days: 3
I certify the patient meets the requirements for IP care: Yes
Code Status As Directed
Resuscitation Status: Full Code
04/06/25 16:08
PRN Pain Medication Management As Directed
May give lesser potent ordered pain med per pt: Yes
preference::
Protocol:: Medication orders for pain may be administered in a
manner that supports deferring to patient preference
when the pt is:
- Requesting an ordered lesser potent pain medication.
Least to most potent pain medications are defined
as: acetaminophen < NSAID < tramadol < opioids
(morphine, oxycodone, hydromorphone).
- Requesting a lesser dose of the same medication IF
ORDERED.
- Requesting a less intrusive route of administration
if both routes are prescribed by the provider (PO <
IV).
04/06/25 16:09
Add On- LAB Urgent
Tests Added?: mag ,phos
04/06/25 17:02
Bedside Glucose POST IV Insulin- HyperK+ Q1HX2,Q2HX2
04/09/25 11:00
DC Protocol for Telemetry ONCE
Abnormal Lab Results
04/06/25 04/06/25 04/06/25
13:41 14:59 16:11
RBC 3.17 L 10^6/uL
(4.20-5.40)
Hgb 10.1 L g/dL
(12.0-16.0)
Hct 30.5 L %
(37.0-47.0)
MCH 31.9 H pg
(27.0-31.0)
MPV 11.0 H fL
(7.4-10.4)
Potassium 6.4 H* mmol/L
(3.5-5.1)
BUN 58 H mg/dl
(7-17)
Creatinine 11.7 H* mg/dL
(0.6-1.0)
POC Glucose 198 H mg/dl
(70-99)
04/06/25 13:41
04/06/25 14:59
Vital Signs
Initial and Last Documented VS:
Initial Vital Signs
Temp Pulse Resp BP Pulse Ox
98.6 F 92 18 149/101 99
04/06/25 12:54 04/06/25 12:54 04/06/25 12:54 04/06/25 12:54 04/06/25 12:54
Last Documented Vital Signs
Temp Pulse Resp BP Pulse Ox
98.6 F 94 20 131/71 100
04/06/25 12:54 04/06/25 15:00 04/06/25 15:00 04/06/25 16:00 04/06/25 15:00
<Dmitriy Mutsafa MD - Last Filed: 04/06/25 16:15>
Orders/Labs/Results
Orders:
Orders
04/06/25 13:13
Hemodialysis Graft US [US Hemodialysis Graft] Urgent
Comment:
Reason For Exam: fistula malfunction
04/06/25 13:41
Basic Metabolic Panel Urgent
Complete Blood Count/With Diff Urgent
Magnesium Urgent
Phosphorus Urgent
Comment: MAG & PHOS ADDED ON BY FLOOR 4:10PM 04-06-25
04/06/25 14:[address] Non Medication Order As Directed
Physician Order: Okay to use R arm for IV placement
Above order entered?: Yes
04/06/25 14:59
Potassium Urgent
04/06/25 15:29
Vascular Surgery Consult Urgent
Consulting Provider: Sandee Noyola
Was physician already notified: Yes
04/06/25 15:31
Electrocardiogram (*1) Urgent
Reason for Study: Other
Other Reason for Exam: hyperkalemia
Cardiac Monitoring- Treatment ONCE
EKG- Treatment ONCE
Albuterol Sulfate [Ventolin Nebules] 10 mg INH R NOW STA
Dextrose 50%-Water [Dextrose 50% Syringe] 12.5 grams IV [id number] PRN
Dextrose 50%-Water [Dextrose 50% Syringe] 25 grams IV NOW STA
Insulin Human Regular [Novolin R] 5 units IV NOW STA
Sodium Bicarbonate 50 meq IV NOW STA
04/06/25 15:32
Bedside Glucose PRE IV Insulin- HyperK+ NOW
04/06/25 15:36
Sodium Zirconium Cyclosilicate [Lokelma] 10 gram PO NOW STA
04/06/25 15:57
Calcium Gluconate 1 gram/100mL [Calcium Gluconate] 1 gram in 100 ml IV ONCE
Carvedilol [Coreg] 12.5 mg PO NOW STA
NIFEdipine EXTENDED RELEASE [Procardia Xl (Extended Release)] 60 mg PO NOW STA
04/06/25 16:04
NEPHROLOGY CONSULT Routine
Consulting Provider: Frida Varela
Was physician already notified: Yes
Reason for consult: LUE fistula clogged
SURGICAL CONSULT Routine
Consulting Provider: Sandee Noyola
Was physician already notified: Yes
Reason for consult: LUE av fistula clogged
04/06/25 16:05
Admit/Transfer Patient As Directed
Co-Sign Provider:
Level of Care: Inpatient admission
Assign to:: Telemetry
Physician / Group: rosetta nguyen
Diagnosis: clogged av fistual LUE, ESRD dialysis, hyperK, HTN
Reason for Telemetry: Arrhythmia
Date to Stop Telemetry: 04/09/25
Time to Stop Telemetry: 11:00
Reason for Hospitalization: clogged av fistual LUE, ESRD dialysis, hyperK, HTN
Expected length of stay greater than two midnights?: Yes
ELOS- Estimated Length of Stay in days: 3
I certify the patient meets the requirements for IP care: Yes
Code Status As Directed
Resuscitation Status: Full Code
04/06/25 16:08
PRN Pain Medication Management As Directed
May give lesser potent ordered pain med per pt: Yes
preference::
Protocol:: Medication orders for pain may be administered in a
manner that supports deferring to patient preference
when the pt is:
- Requesting an ordered lesser potent pain medication.
Least to most potent pain medications are defined
as: acetaminophen < NSAID < tramadol < opioids
(morphine, oxycodone, hydromorphone).
- Requesting a lesser dose of the same medication IF
ORDERED.
- Requesting a less intrusive route of administration
if both routes are prescribed by the provider (PO <
IV).
04/06/25 16:09
Add On- LAB Urgent
Tests Added?: mag ,phos
04/06/25 17:02
Bedside Glucose POST IV Insulin- HyperK+ Q1HX2,Q2HX2
04/09/25 11:00
DC Protocol for Telemetry ONCE
Abnormal Lab Results
04/06/25 04/06/25 04/06/25
13:41 14:59 16:11
RBC 3.17 L 10^6/uL
(4.20-5.40)
Hgb 10.1 L g/dL
(12.0-16.0)
Hct 30.5 L %
(37.0-47.0)
MCH 31.9 H pg
(27.0-31.0)
MPV 11.0 H fL
(7.4-10.4)
Potassium 6.4 H* mmol/L
(3.5-5.1)
BUN 58 H mg/dl
(7-17)
Creatinine 11.7 H* mg/dL
(0.6-1.0)
POC Glucose 198 H mg/dl
(70-99)
04/06/25 13:41
04/06/25 14:59
Vital Signs
Initial and Last Documented VS:
Initial Vital Signs
Temp Pulse Resp BP Pulse Ox
98.6 F 92 18 149/101 99
04/06/25 12:54 04/06/25 12:54 04/06/25 12:54 04/06/25 12:54 04/06/25 12:54
Last Documented Vital Signs
Temp Pulse Resp BP Pulse Ox
98.6 F 94 20 131/71 100
04/06/25 12:54 04/06/25 15:00 04/06/25 15:00 04/06/25 16:00 04/06/25 15:00
<Jaja Morgan PA-C - Last Filed: 04/06/25 16:35>
MDM/Problems Addressed
Differential Diagnosis Includes:
39yoF here with LUE AV fistula malfunction. Unable to get dialysis yesterday or today. Last treatment was 3 days ago. She is mildly hypertensive with otherwise stable vitals. She is chronically ill appearing in no distress. Distal thrill overlying
the AV fistula is palpable but I am unable to palpable the thrill proximally.
Initial ED plan: Case was discussed with on-call vascular surgeon upon patient arrival. Hemodialysis access duplex ultrasound ordered. Will check CBC and CMP to evaluate potassium levels and acid/base status.
<Jaja Morgan PA-C - Last Filed: 04/06/25 16:35>
*Pulse Oximetry
SaO2: 99
Oxygen Mode of Delivery: Room air
Patient hypoxic: no
*EKG
Interpreted by ED Provider?: Yes
EKG Intrepretation Date: 04/06/25
Heart Rate: 94
Rate: normal
Rhythm: sinus
[place]: normal axis
Interval: normal interval
QRS Pattern: low voltage
Ischemia: no ischemia
*Critical Care Note
Total Time (30-74mins, 75-104mins- exclusive of procedures): Not Applicable
<Jaja Morgan PA-C - Last Filed: 04/06/25 16:35>
Update Note
Update Note:
Ultrasound shows occluded AV fistula. Potassium is elevated at 6.4. EKG obtained and no peaked T waves noted. Temporizing measures ordered including IV insulin/dextrose, bicarb, albuterol, and Lokelma. Vascular planning on declot procedure
tomorrow. Patient admitted for further management.
ED Attending Note
<Jaja Morgan PA-C - Last Filed: 04/06/25 16:35>
-
Portions of this chart may have been created with voice recognition software.� Occasional wrong word or��sound alike� substitutions may have occurred due to the inherent limitations of voice recognition software.
<Dmitriy Mustafa MD - Last Filed: 04/06/25 16:15>
ED Attending Note
Patient seen and examined by attending physician: Yes
I performed the substantive portion of visit, reviewed & personally made and approve the management plan that is documented in note by myself or KYAW.: Yes
ED Attending Note:
Patient with a clotted dialysis catheter. Has not had dialysis in 3 days. No specific medical complaints. Denies unusual weakness chest pain shortness of breath syncope etc.
On exam patient is nontoxic in no distress. No respiratory distress. Regular rate and rhythm. AV fistula left arm. No unusual swelling or erythema. No thrill however. Good distal pulses and color. Grossly nonfocal.
Fistulogram shows a clotted graft. Labs show hyperkalemia.
Vascular surgery contacted along with hospitalist and nephrology. Admission for hyperkalemia electrolyte management and resolution of clotted graft issue.
Discharge Plan
Departure
Patient Disposition: Admit
Date of Disposition: 04/06/25
Time of Disposition: 15:35
Presentation/result/management discussed w/ accepting MD/DO: Hospitalist
Discharge Problem:
Dialysis AV fistula malfunction, Hyperkalemia
Interventions
Interventions:
*Risk Screen - Suicide Last Done: 04/06/25 12:54
*General Assessment Last Done: 04/06/25 12:54
*Neglect/Abuse Screening Last Done: 04/06/25 12:54
[2025-04-06 14:05] LABS: Blood Urea Nitrogen 58 mg/dl (7-17); Calcium 9.0 mg/dl (8.4-10.2); Carbon Dioxide 25 mmol/L (22-30); Chloride 98 mmol/L (98-107); Glucose 97 mg/dl (70-99); Sodium 136 mmol/L (135-145); eGFR 3.84
[2025-04-06 14:10] LABS: Hematocrit 30.5 % (37.0-47.0); Hemoglobin 10.1 g/dL (12.0-16.0); Mean Corp Hgb Conc. 33.1 g/dL (33.0-37.0); Mean Corpuscular Volume 96.2 fL (81.0-99.0); Nucleated Red Blood Cells % 0 %; Platelet Count 182 10^3/uL (130-400); Red Cell Dist. Width 13.2 % (11.5-14.5)
[2025-04-06 15:00] VITALS: BP 126/77
[2025-04-06 15:25] LABS: Potassium 6.4 mmol/L (3.5-5.1)
--- NOTE | 2025-04-06 15:44 | HPS.HSE ---
Addendum entered and electronically signed by Guero Hollingsworth MD 04/06/25 16:41:
This is an addendum to the H&P written by Aydee Ramos on 04/06/25. �Patient seen and examined independently with [facility].
39-year-old female past medical history of Emphysematous Pyelonephritis / Recurrent UTIs s/p left nephrectomy, ESRD on hemodialysis Tuesday, Tuesday, Tuesday, type 2 diabetes, hypertension, hypothyroidism, Celiac, Anxiety/Depression, presenting for
AV fistula problem. �Dialysis center was unable to access the fistula yesterday due to malfunction. �She only had 15 minutes of dialysis. �She returned to dialysis center today to attempt to reaccess but they were unable to do so and told her to
come to emergency room. No chest pain, shortness of breath or headache.�
She underwent cannulation of left upper extremity AV fistula with fistulogram and balloon angioplasty of perianastomotic stenosis with Dr. Vergara on 10/01 for fistula malfunction at that time.
Vital signs unremarkable.
Labs show potassium 6.4. EKG shows peaked T waves.
Vascular ultrasound shows left upper extremity arteriovenous fistula outflow vein is occluded. �Vascular surgery consulted and plan for declotting tomorrow. �N.p.o. Postmidnight. Would need temporary IJ catheter if unsuccessful.�
Patient with AV fistula malfunction. �Patient also with hyperkalemia secondary to missed dialysis session yesterday. �Patient received albuterol, insulin dextrose, Lokelma. �Continue Lokelma as needed. Give calcium. �Recheck BMP. �Nephrology
consulted.
Original Note:
Family Physician
-
Family Physician: Cheryl Thomas PA-C
Chief Complaint
-
Left upper extremity AV fistula not working
History of Present Illness
39-year-old Citizen [place]-speaking female with history of ESRD on hemodialysis Tuesday. The patient has a left upper extremity AV fistula malfunction only had 15 minutes of dialysis yesterday 04/05/2025. She has history of left upper
extremity AV fistula malfunction due to stenosis status post angioplasty 10/01/[address] Vergara she did require temporary left IJ dialysis but catheter was removed 11/15/2024. Her sister Olivia was translating via phone. Patient's
blood pressure is elevated 149 101 she did not take her a.m. medications due to attempting dialysis today which was not done. The patient denies headache, blurred vision, fever, chills, chest pain, palpitations, cough, shortness of breath,
abdominal pain, nausea, vomiting, diarrhea, urinary symptoms. She did translate to patient about procedure tomorrow if unsuccessful would possibly need temporary IJ.
History of left internal jugular catheter removal November 15, 2024, ESRD hemodialysis Tuesday, left nephrectomy-,Emphysematous Pyelonephritis / Recurrent UTIs normocytic anemia, hypothyroidism, HTN�benign, GERD, DM 2�diet controlled,
celiac disease.
Medical History
Past Medical History
Past Medical History: Reports Other
Additional Past Medical History:
Hypertension
DM-II
ERSD on HD (2018)
Celiac Disease
Anxiety / Depression
GERD
Hypothyroidism
Emphysematous Pyelonephritis / Recurrent UTIs
Left nephrectomy 2015
Past Surgical History: Reports Other
Additional Past Surgical History:
D&E x 2
Left Nephrectomy (2015)
LUE AVF
Social History
Tobacco: Non-smoker
Alcohol: None
Drug: None
Personal:
Living: With Family
Family History
Family History: Not pertinent
Allergies / Home Medications
Allergies reflects when Allergies were last updated in [employer].
Home Medications with original date entered in [employer]
Allergy/Medication List:
Allergies
Allergy/AdvReac Type Severity Reaction Status Date / Time
No Known Allergies Allergy Verified 03/29/25 00:25
Home Medications
pantoprazole 20 mg tablet,delayed release 20 mg PO BID Gastrointestinal issue 03/31/17
sevelamer carbonate 800 mg tablet 2,400 mg PO AC Kidney Disease 01/18/22
levothyroxine 88 mcg tablet (Synthroid) 88 mcg PO DAILY Thyroid 11/17/22
nifedipine 60 mg tablet,extended release 60 mg PO BID Blood Pressure 05/15/24
carvedilol 12.5 mg tablet 12.5 mg PO BID Heart Failure 05/17/24
vitamin B complex-vitamin C 100 mg-folic acid 1 mg tablet (Dialyvite) 1 tab PO DAILY Supplement 07/26/24
ondansetron 8 mg disintegrating tablet 8 mg PO [id number] PRN nausea 10/01/24
acetaminophen 325 mg tablet (Tylenol) 650 mg PO Q6HPRN PRN mild pain 10/10/24
sevelamer carbonate 800 mg tablet 1,600 mg PO DAILYPRN PRN snacks 10/10/24
cholecalciferol (vitamin D3) 50 mcg (2,000 unit) tablet 50 mcg PO DAILY 04/06/25
docusate sodium 100 mg tablet 200 mg PO DAILY 04/06/25
Review of Systems
-
History Source: Patient and Family (Sister Olivia translating via phone)
A 12 point ROS was completed and negative except as noted: Yes
Constitutional: Denies Fever or Fatigue
EENT: Denies Sore Throat
Respiratory: Denies Cough or Trouble Breathing
Cardiac: Denies Chest Pain, Diaphoresis, Palpitations or Syncope
Abdomen/GI: Denies Abdominal Pain, Nausea, Vomiting, Diarrhea or Constipated
Musculoskeletal: Denies Joint Pain or Edema
Skin: Denies Itching or Rash
Neurological: Denies Dizzy, Headache or Weakness
Endocrine: Reports No Symptoms
Hematologic/Lymphatic: Reports No Symptoms
Psych: Reports Calm
Physical Exam
Vital Signs
Vital Signs
Temp Pulse Resp BP Pulse Ox
98.6 F 92 18 149/101 99
04/06/25 12:54 04/06/25 12:54 04/06/25 12:54 04/06/25 12:54 04/06/25 13:20
Physical Exam
General: Comfortable and Conversant; No Pain, Fever or Chills
HEENT: NormoCephalic, Anicteric, Moist mucous membranes, PERRLA, Novelty Conjunctivae and No Ptosis
Respiratory: Clear; No Wheezes, Rales or Rhonchi
Cardiac: S1/S2 and Regular Rhythm; No Murmur, Rub, Gallop or Peripheral Edema
Breast: Deferred by me
GI: Soft, Non Tender, Non Distended and Normal Bowel Sounds
Genito-urinary: Deferred by me
Musculoskeletal: No Clubbing, No Cyanosis and No Edema
Skin: Other (Left upper extremity AV fistula nonfunctioning)
Neuro: AO x 3 (Speaks [place]), No Motor Deficits, Nonfocal/grossly intact, Cranial Nerves Intact and No Sensory Deficits; No Slurred Speech, Facial Droop, Tremors or Sedated
Psych: Calm
Laboratory Results
-
04/06/25 13:41
04/06/25 14:59
Laboratory Results
Total Bilirubin Cancelled 04/06/25 13:41
AST Cancelled 04/06/25 13:41
ALT Cancelled 04/06/25 13:41
Alkaline Phosphatase Cancelled 04/06/25 13:41
Data Reviewed
-
Lab Data: Labs Reviewed by me
Impression/Plan
-
Impression/plan:
Admit to telemetry
#Malfunctioning AV fistula left upper extremity
#History of left upper extremity AV fistula malfunction due to stenosis status post angioplasty 10/01 by vascular surgery
#Had left internal jugular dialysis cath placed then removed 11/15/2024
#ESRD dialysis Tuesday
#History of LEFT [id number] Pyelonephritis / Recurrent UTIs
Creatinine 11.7
- Consult vascular surgery for fistulogram tomorrow 04/07/2025
- N.p.o. after midnight
-Consult nephro
-Continue sevelamer, Dialyvite 1 tab p.o. daily
#Acute hyperkalemia due to ESRD
K6.4
-Bicarb and dextrose given in ER
-Lokelma now per nephrology
-Will give calcium gluconate now
-Follow BMP check at 2100
EKG: NSR 94 bpm, QTc 465 MS possible slight T wave peaking
#Accelerated hypertension due to skipping a.m. meds
BP 149/101 patient denies headache, shortness breath, chest pain
Will give carvedilol 12.5 mg now and nifedipine 60 mg now
-Continue nifedipine 60 mg twice daily, carvedilol 12.5 mg p.o. twice daily with hold parameters
#Normocytic anemia -likely due to ESRD.
Hgb 10.1 appears near baseline
Monitor hemoglobin.
#Hypothyroidism
Continue levothyroxine.
#GERD
- Continue-pantoprazole.
#DM2 -diet controlled.
Blood sugar 97
Check HgbA1c
Celiac disease
- Gluten-free diet
Full code
[2025-04-06] MEDS: LOKELMA 10 GRAM PO ×2 (15:49→18:34)
[2025-04-06] MEDS: NOVOLIN R 5 UNITS IV (15:51)
[2025-04-06] MEDS: DEXTROSE 50% SYRINGE 25 GRAMS IV ×3 (15:53→23:17)
[2025-04-06] MEDS: SODIUM BICARBONATE 50 MEQ IV (15:53)
[2025-04-06] MEDS: VENTOLIN NEBULES 10 MG INH (15:54)
[2025-04-06 16:00] VITALS: BP 131/71
[2025-04-06 16:04] LABS: Glucose - Point of Care 77 mg/dl (70-99)
[2025-04-06 16:13] LABS: Glucose - Point of Care 198 mg/dl (70-99)
--- NOTE | 2025-04-06 16:23 | W.CON.NEPH ---
Consultation
-
Date/Time Consultation Requested: 04/06/25 160
Date/Time Consultation Performed: 04/06/25 1610
Requesting Provider: Aydee Ramos
Performing Provider: Frida Mckeon
Reason for Consultation: ESRD
Medical History
-
Chief Complaint: AVF malfunction
History of Present Illness:
39 y/o [place] Islander speaking female who presents with malfunctioning left upper extremity AV fistula. Patient usually received dialysis on Tuesday, Tuesday and Tuesday at [facility]. Yesterday Tuesday they had difficultly with fistula only
had 15min of HD and asked her to come back today noting AVF not functioning at all she was refer to ER. US of AVF shows occlusion of out flow vein. SHe had previous issues with malfunctioning and required angioplasty last one in September. Vascular
planning declotting tomorrow if fails likely need cvc. Nephrology asked for HD needs. Her potassium at 6.4 today. She receiving temporizing measures calcium, insulin, bicarb, albuterol and LOkelma. Reportedly EKG tall t wave changes. No n/v. No CP
or sob. no n/v. No abd pain.
Past Medical History
History of ESRD on dialysis Tuesday, Tuesday, Tuesday at [facility] since 2019
2. Hypertension.
3. Diabetes, type 2.
4. Hypothyroidism.
5. Celiac disease.
6. GERD.
7. Left upper extremity AV fistula.
8. Hyperphosphatemia.
9. Anxiety, depression.
PAST SURGICAL HISTORY:
1. D and E x2.
2. Left nephrectomy 2016.
3. Left upper extremity AV fistula.
Social History
Tobacco: Non-Smoker
Alcohol: None
Personal:
Living: With Family
Family History
Family History: Not Pertinent
Allergies / Home Medications
Allergy/AdvReac Type Severity Reaction Status Date / Time
No Known Allergies Allergy Verified 03/29/25 00:25
�Medication �Instructions �Recorded �Confirmed �Type
pantoprazole 20 mg tablet,delayed 20 mg PO BID Gastrointestinal issue 03/31/17 04/06/25 History
release
sevelamer carbonate 800 mg tablet 2,400 mg PO AC Kidney Disease 01/18/22 04/06/25 History
levothyroxine 88 mcg tablet 88 mcg PO DAILY Thyroid 11/17/22 04/06/25 History
(Synthroid)
nifedipine 60 mg tablet,extended 60 mg PO BID Blood Pressure 05/15/24 04/06/25 History
release
carvedilol 12.5 mg tablet 12.5 mg PO BID Heart Failure 05/17/24 04/06/25 History
vitamin B complex-vitamin C 100 1 tab PO DAILY Supplement 07/26/24 04/06/25 History
mg-folic acid 1 mg tablet
(Dialyvite)
ondansetron 8 mg disintegrating 8 mg PO [id number] PRN nausea 10/01/24 04/06/25 History
tablet
acetaminophen 325 mg tablet 650 mg PO Q6HPRN PRN mild pain 10/10/24 04/06/25 History
(Tylenol)
sevelamer carbonate 800 mg tablet 1,600 mg PO DAILYPRN PRN snacks 10/10/24 04/06/25 History
cholecalciferol (vitamin D3) 50 50 mcg PO DAILY 04/06/25 04/06/25 History
mcg (2,000 unit) tablet
docusate sodium 100 mg tablet 200 mg PO DAILY 04/06/25 04/06/25 History
Review of Systems
-
All other systems: Negative unless noted
Physical Exam
Vital Signs
Vital Signs
Temp Pulse Resp BP Pulse Ox
98.6 F 94 20 131/71 100
04/06/25 12:54 04/06/25 15:00 04/06/25 15:00 04/06/25 16:00 04/06/25 15:00
Lab Results
WBC 5.5 10^3/uL (4.8-10.8) 04/06/25 13:41
RBC 3.17 10^6/uL (4.20-5.40) L 04/06/25 13:41
Hgb 10.1 g/dL (12.0-16.0) L 04/06/25 13:41
Hct 30.5 % (37.0-47.0) L 04/06/25 13:41
Plt Count 182 10^3/uL (130-400) 04/06/25 13:41
Sodium 136 mmol/L (135-145) 04/06/25 13:41
Potassium 6.4 mmol/L (3.5-5.1) H* 04/06/25 14:59
Chloride 98 mmol/L (98-107) 04/06/25 13:41
Carbon Dioxide 25 mmol/L (22-30) 04/06/25 13:41
BUN 58 mg/dl (7-17) H 04/06/25 13:41
Creatinine 11.7 mg/dL (0.6-1.0) H* 04/06/25 13:41
eGFR 3.84 04/06/25 13:41
Glucose 97 mg/dl (70-99) 04/06/25 13:41
Calcium 9.0 mg/dl (8.4-10.2) 04/06/25 13:41
Albumin Cancelled 04/06/25 13:41
Physical Exam
General: Awake, Alert, Oriented, AOx3, No Distress and Nontoxic
HEENT: EOMI, Anicteric, Conjunctivae Clear and Neck Supple
Respiratory: Clear, Normal Excursion and Nonlabored Respirations
Cardiac: S1/S2 and Regular Rate/Rhythm
Breast: Deferred by me
Abdomen: Soft, Nontender and Nondistended
Musculoskeletal: No Cyanosis and No Edema
Skin: No Rash, Warm and Dry
Neuro: Nonfocal/Grossly Intact
Psych: Mood/afflect pleasant, Insight/judgement good and Appropriate
Vascular Access: AVF
Assessment/Plan
-
IMP:
Occluded left UE AVF last angioplasty 10/01/24
ESRD on HD [facility]-HD since 2018
DM-II
Hypothyroidism
Celiac Disease
GERD
Emphysematous Pyelonephritis / Recurrent UTIs
Left Nephrectomy (2015)
LUE AVF-reportedly placed 2yrs ago-LEFT arm fistulogram demonstrated mild recurrent in-stent stenoses,h/o balloon angioplasty 2022
hyperphosphatemia
Fatty liver
Cholelithiasis
Anxiety/depression
Plan:
a/w nonfunction AVF
plan fistulogram tomorrow to declott, if not successful likely need CVC
hyperkalemia-with EKG changes-cont temporization
Lokelma course 10gm Q8hrs
vol seem stable
Bp better with meds
renal diet and FR strictly
HD plan tomorrow
[2025-04-06] MEDS: CALCIUM GLUCONATE 100 IV ×2 (16:42→23:17)
[2025-04-06] MEDS: COREG 12.5 MG PO (16:43)
[2025-04-06] MEDS: PROCARDIA XL (EXTENDED RELEASE) 60 MG PO (16:44)
[2025-04-06 17:00] VITALS: BP 115/67
[2025-04-06 17:08] LABS: Magnesium 2.6 mg/dl (1.6-2.3)
[2025-04-06 17:09] LABS: Glucose - Point of Care 54 mg/dl (70-99)
[2025-04-06] MEDS: DEXTROSE 50% SYRINGE 12.5 GRAMS IV (17:18)
[2025-04-06 17:29] LABS: Glucose - Point of Care 53 mg/dl (70-99)
[2025-04-06 17:36] LABS: Glucose - Point of Care 230 mg/dl (70-99)
[2025-04-06 17:53] LABS: Glucose - Point of Care 184 mg/dl (70-99)
[2025-04-06 18:15] VITALS: BP 131/93
[2025-04-06 18:21] LABS: Glucose - Point of Care 208 mg/dl (70-99)
[2025-04-06 19:10] VITALS: BP 122/79
[2025-04-06] MEDS: RENVELA 2400 MG PO (19:27)
[2025-04-06 19:38] LABS: Glucose - Point of Care 174 mg/dl (70-99)
[2025-04-06 21:31] LABS: Glucose - Point of Care 143 mg/dl (70-99)
[2025-04-06] MEDS: NOVOLOG FLEXPEN-LOW RESISTANCE SC (22:03)
[2025-04-06] MEDS: HEPARIN 5000 UNITS SC (22:05)
[2025-04-06] MEDS: PROTONIX 20 MG PO (22:05)
[2025-04-06] MEDS: PROCARDIA XL (EXTENDED RELEASE) PO (22:19)
[2025-04-06] MEDS: COREG PO (22:19)
[2025-04-06 22:28] LABS: Blood Urea Nitrogen 59 mg/dl (7-17); Calcium 8.9 mg/dl (8.4-10.2); Carbon Dioxide 27 mmol/L (22-30); Chloride 96 mmol/L (98-107); Glucose 135 mg/dl (70-99); Potassium 6.8 mmol/L (3.5-5.1); Sodium 131 mmol/L (135-145); eGFR 3.62
--- NOTE | 2025-04-06 22:38 | W.PN.UPDATE ---
Update Note
Progress Note Update
Upgrade to IMU
#Acute hyperkalemia in setting of ESRD
Repeat potassium 6.8 increased from 6.4
[address] with Nephro dr velez
- will give Iv dextrose , insulin , rectal kayexelate, calcium gluconate
- Repeat BMP at 5 AM
#ESRD
Creat 12.3> 11.7
-Patient for AV fistulogram in a.m.
#Hypotension secondary to BP meds
Patient was given carvedilol and nifedipine 60 mg in the ER due to blood pressure 141/100
Current BP on floor 88//51 asymptomatic
[2025-04-06 23:12] LABS: Glucose - Point of Care 147 mg/dl (70-99)
[2025-04-06] MEDS: NOVOLIN R 0.05 UNITS IV (23:14)
[2025-04-07] VITALS (42 sets, daily range): BP systolic 76–148; BP diastolic 46–131
[2025-04-07 00:54] LABS: Glucose - Point of Care 176 mg/dl (70-99)
--- NOTE | 2025-04-07 01:23 | PTCARENOTE ---
Pt was admitted just before change of shift after having received hyperkalemia protocol in the ER. Pt had no complaints at the time and has been stable. New set of labs drawn and resulted at 2157. K returned at 6.8 and Cr was 12.3. Discussed care
with Sherie Nation COMPOUNDER and Aydee Peoples COMPOUNDER. Orders were placed for hyperkalemia protocol again, Ca Gluconate as well as Kayexalate enema. Pt was given all but the enema by this RN. BS was 147 prior to administration. Pt also noted to have soft BP 92/50
manually. Discussed with Aydee Peoples COMPOUNDER who stated pt had already had Coreg and Procardia in the ER. Both meds 2200hr doses were held by this RN. Orders were also placed to tx pt to higher level of care. Report given over the ph and pt was transferred
via wc by this RN. No s/s of acute distress assessed.
[2025-04-07] MEDS: KAYEXALATE SUSPENSION 30 GRAMS RECTAL (01:25)
[2025-04-07 01:54] LABS: Glucose - Point of Care 103 mg/dl (70-99)
--- NOTE | 2025-04-07 02:27 | PTCARENOTE ---
Received pt from [facility] to ICU 3366. Pt. ambulated independently from wheelchair to bed. [place] Citizen speaking only - coining press operator line used. Pt. AAOx3, KIRKPATRICK, without complaints. NSR on tele with occasional PVCs. HR 90s. BP 100-110s/60-70s. + pulses, no
edema. On RA, spo2 100%. Lungs CTA. + bowel sounds. NPO since midnight. Kayexalate enema given as previously ordered. Pt. had moderate size BM on commode after. Repeat labs in AM.
[2025-04-07 03:22] LABS: Glucose - Point of Care 86 mg/dl (70-99)
[2025-04-07 04:23] LABS: Hematocrit 27.3 % (37.0-47.0); Hemoglobin 9.2 g/dL (12.0-16.0); Mean Corp Hgb Conc. 33.7 g/dL (33.0-37.0); Mean Corpuscular Volume 95.1 fL (81.0-99.0); Nucleated Red Blood Cells % 0 %; Platelet Count 168 10^3/uL (130-400); Red Cell Dist. Width 13.1 % (11.5-14.5)
[2025-04-07 05:00] LABS: ALT (SGPT) 38 U/L (0-35); AST (SGOT) 31 U/L (14-36); Albumin 4.1 g/dl (3.5-5.0); Alkaline Phosphatase 170 U/L (38-126); Blood Urea Nitrogen 64 mg/dl (7-17); Calcium 9.0 mg/dl (8.4-10.2); Carbon Dioxide 28 mmol/L (22-30); Chloride 95 mmol/L (98-107); Glucose 92 mg/dl (70-99); Potassium 6.5 mmol/L (3.5-5.1); Sodium 133 mmol/L (135-145); Total Protein 6.5 g/dl (6.3-8.2); eGFR 3.51
[2025-04-07 05:30] LABS: Glucose - Point of Care 98 mg/dl (70-99)
[2025-04-07] MEDS: CALCIUM GLUCONATE 100 IV (06:22)
[2025-04-07] MEDS: NOVOLIN R 5 UNITS IV (06:22)
[2025-04-07] MEDS: LOKELMA 10 GRAM PO (06:22)
[2025-04-07] MEDS: DEXTROSE 50% SYRINGE 25 GRAMS IV (06:22)
--- NOTE | 2025-04-07 06:26 | W.PN.UPDATE ---
Update Note
Progress Note Update
~5 am Critical labs: Potassium 6.5, Creatinine 12.6. TT'd numerical control machine operator Nephrology, Dr. Rain. Give Iv dextrose, insulin, and calcium gluconate. Give Lokelma if vascular surgery approves.
TT to on-call Vascular surgery, Dr. Noyola. Per Dr. Noyola, OK to give Lokelma now. Recheck potassium 1 hour after administering Lokelma. If potassium remains elevated, may need to have catheter placed for HD rather than attempting to declot her
first.
--- NOTE | 2025-04-07 06:33 | PTCARENOTE ---
K = 6.5. ISABEL Junior notified. Calcium and insulin+D50 ordered and administered. Glucose = 102 prior to admin. 0600 scheduled lokelma given also.
Pt. had 2 small-moderate bowel movements after enema overnight. Has been resting without complaint since. Vitals stable.
[2025-04-07 06:42] LABS: Glucose - Point of Care 102 mg/dl (70-99)
--- NOTE | 2025-04-07 07:18 | W.PN.HOSP.TC ---
Today's Communication/Plan
-
s/p temp dialysis catheter
eventual fistulogram and declotting
OK to transfer to tele
Assessment / Plan
Assessment / Plan
39-year-old female past medical history of Emphysematous Pyelonephritis / Recurrent UTIs s/p left nephrectomy, ESRD on hemodialysis Tuesday, Tuesday, Tuesday, type 2 diabetes, hypertension, hypothyroidism, Celiac, Anxiety/Depression, presenting for
AV fistula problem. �Dialysis center was unable to access the fistula yesterday due to malfunction. �She only had 15 minutes of dialysis. �She returned to dialysis center today to attempt to reaccess but they were unable to do so and told her to
come to emergency room.
US
IMPRESSION: The left upper extremity arteriovenous fistula outflow vein is occluded (as is outflow stent).
Malfunctioning AV fistula left upper extremity
History of left upper extremity AV fistula malfunction due to stenosis status post angioplasty 10/01 by vascular surgery
Had left internal jugular dialysis cath placed then removed 11/15/2024
ESRD dialysis Tuesday
History of LEFT [id number] Pyelonephritis / Recurrent UTIs
- appreciate vascular surgery; patient is now s/p temp hemodialysis catheter with plans for fistulogram when more stable
- Appreciate renal consult
- receiving HD now
- Continue sevelamer, Dialyvite 1 tab p.o. daily
Acute hyperkalemia due to ESRD
-s/p bicarb and Insulin/Dextrose, Lokelma
-s/p Calcium
-now receiving HD
Essential HTN
-Continue nifedipine 60 mg twice daily, carvedilol 12.5 mg p.o. twice daily with hold parameters
Normocytic anemia -likely due to ESRD.
Hgb 10.1 appears near baseline
Monitor hemoglobin.
Hypothyroidism
Continue levothyroxine.
GERD
Continue-pantoprazole.
DM2 -diet controlled.
Blood sugar 97
Check HgbA1c
Celiac disease
- Gluten-free diet
Full code
51 minutes spent on patient care
Anticipated Discharge: 24 - 48 hours
Subjective/Interval History
-
Date of Service: April 07, 2025
seen on dialysis
feeling ok
no trouble breathing
Objective Data
-
Labs:
Laboratory Results
04/06/25 04/07/25 04/07/25
21:57 01:17 04:01
WBC 6.6
Hgb 9.2 L
Hct 27.3 L
Plt Count 168
Sodium 131 L 133 L
Potassium 6.8 H* Cancelled 6.5 H*
Chloride 96 L 95 L
Carbon Dioxide 27 28
BUN 59 H 64 H
Creatinine 12.3 H* 12.6 H*
Glucose 135 H 92
Calcium 8.9 9.0
Total Bilirubin 0.5
AST 31
ALT 38 H
Alkaline Phosphatase 170 H
04/07/25 04/07/25
07:45 08:37
WBC
Hgb
Hct
Plt Count
Sodium Pending
Potassium Pending
Chloride Pending
Carbon Dioxide Pending
BUN Pending
Creatinine Pending
Glucose Pending
Calcium Pending
Total Bilirubin
AST
ALT
Alkaline Phosphatase
Vital Signs:
Vital Signs
Temp Pulse Resp BP Pulse Ox
98.1 F 96 14 137/70 100
04/07/25 01:10 04/07/25 06:00 04/07/25 06:00 04/07/25 06:00 04/07/25 06:00
I&O
04/06/25 04/07/25 04/08/25
06:59 06:59 06:59
Intake Total 340 / 340
Balance 340 / 340
Review of Systems
-
History Source: Patient
All other systems: Reviewed and negative
Physical Exam
-
General: No Apparent Distress
HEENT: PERRLA
Respiratory: Clear to Auscultation; Negative Wheezes
Cardiac: Regular Rhythm and S1/S2
GI: Soft and Nontender
Musculoskeletal: No Edema
Skin: Warm and Dry; Negative Rash
Neuro: AO x 3
Psych: Calm
Data Reviewed
-
Diagnostic Radiology: Report Reviewed by me
Labs: Labs Reviewed by me
[2025-04-07] MEDS: DEXTROSE 50% SYRINGE 12.5 GRAMS IV (07:43)
[2025-04-07 07:46] LABS: Glucose - Point of Care 63 mg/dl (70-99)
[2025-04-07] MEDS: NOVOLOG FLEXPEN-LOW RESISTANCE SC ×2 (07:48→11:18)
--- NOTE | 2025-04-07 08:00 | PTCARENOTE ---
Rec'd pt at 0700. Pt alert and awake, pleasant. [place] Citizen speaking. Monitor SR. Lungs CTA. 0735 BG-63, NPO for OR this am-1/2amp D50 given, recheck in 15 min 123. Pt to OR at 0755 for temp HD cath placement.
--- NOTE | 2025-04-07 08:02 | CON.VAS ---
Consultation
Consultation Request
Reason for Consultation: clotted AVF
Medical History
-
History of Present Illness:
39 yo F with ESRD and multiple HD procedures. Has a LUE brachiocephalic AVF. This worked Tuesday but did not Tuesday. She returned to her HD clinic Tuesday and it still was not accessed so she came to the ED. Her K there initially was 6.8.
Past Medical History
Past Medical History: Renal Failure
Past Surgical History: Other (multiple catheters and HD access procedures)
Family History
Family History: Reviewed & Not Pertinent
Allergies / Home Medications
Allergy/AdvReac Type Severity Reaction Status Date / Time
No Known Allergies Allergy Verified 03/29/25 00:25
�Medication �Instructions �Recorded �Confirmed �Type
pantoprazole 20 mg tablet,delayed 20 mg PO BID Gastrointestinal issue 03/31/17 04/06/25 History
release
sevelamer carbonate 800 mg tablet 2,400 mg PO AC Kidney Disease 01/18/22 04/06/25 History
levothyroxine 88 mcg tablet 88 mcg PO DAILY Thyroid 11/17/22 04/06/25 History
(Synthroid)
nifedipine 60 mg tablet,extended 60 mg PO BID Blood Pressure 05/15/24 04/06/25 History
release
carvedilol 12.5 mg tablet 12.5 mg PO BID Heart Failure 05/17/24 04/06/25 History
vitamin B complex-vitamin C 100 1 tab PO DAILY Supplement 07/26/24 04/06/25 History
mg-folic acid 1 mg tablet
(Dialyvite)
ondansetron 8 mg disintegrating 8 mg PO [id number] PRN nausea 10/01/24 04/06/25 History
tablet
acetaminophen 325 mg tablet 650 mg PO Q6HPRN PRN mild pain 10/10/24 04/06/25 History
(Tylenol)
sevelamer carbonate 800 mg tablet 1,600 mg PO DAILYPRN PRN snacks 10/10/24 04/06/25 History
cholecalciferol (vitamin D3) 50 50 mcg PO DAILY 04/06/25 04/06/25 History
mcg (2,000 unit) tablet
docusate sodium 100 mg tablet 200 mg PO DAILY 04/06/25 04/06/25 History
Review of Systems
-
History Source: Patient
All other systems: Negative unless noted
Physical Exam
Vital Signs
Temp Pulse Resp BP Pulse Ox
97.9 F 96 14 137/70 100
04/07/25 07:38 04/07/25 06:00 04/07/25 06:00 04/07/25 06:00 04/07/25 06:00
Lab Results
04/07/25 04:01
Physical Exam
General: Well Developed
Cardiac: S1/S2 and Other (tachycardic)
GI: Soft and Non Tender
Neuro: AO x 3
Psych: Calm
Pulses: Bilateral Femoral: +2
Assessment / Plan
-
39 yo F, unable to be dialyzed since Tuesday.
-Unfortunately despite medical management her K is still significantly elevated and overnight she has become tachycardic and had episodes of hypotension. I do not think it is safe to proceed with declot and will place an intermittent catheter for
dialysis first. Upon review of her prior imaging her last tunneled line in 09/2024 required fluoroscopy so we will do this in the OR with fluoro assistance. Risks discussed and patient amenable to proceed.
[2025-04-07] MEDS: RENVELA PO ×2 (08:04→11:15)
[2025-04-07] MEDS: SYNTHROID PO (08:04)
[2025-04-07] MEDS: COREG PO ×2 (08:05→19:34)
[2025-04-07] MEDS: PROTONIX PO (08:05)
[2025-04-07] MEDS: VITAMIN D3 (cholecalciferol) PO (08:05)
[2025-04-07] MEDS: COLACE PO (08:05)
[2025-04-07] MEDS: HEPARIN SC (08:05)
[2025-04-07] MEDS: B COMPLEX w/VITAMIN C PO (08:05)
[2025-04-07] MEDS: PROCARDIA XL (EXTENDED RELEASE) PO ×2 (08:05→19:34)
[2025-04-07 08:06] LABS: Glucose - Point of Care 123 mg/dl (70-99)
[2025-04-07 08:19] LABS: Blood Urea Nitrogen 64 mg/dl (7-17); Calcium 9.7 mg/dl (8.4-10.2); Carbon Dioxide 27 mmol/L (22-30); Chloride 95 mmol/L (98-107); Glucose 55 mg/dl (70-99); Potassium 5.5 mmol/L (3.5-5.1); Sodium 133 mmol/L (135-145); eGFR 3.38
[2025-04-07 09:04] LABS: Glucose - Point of Care 76 mg/dl (70-99)
--- NOTE | 2025-04-07 09:42 | PTCARENOTE ---
Rec'd pt back from OR approx 0845. Right groin HD cath in place, pt on bedrest per MD. Dr. Varela notified of HD cath placement.
[2025-04-07 10:12] LABS: Glucose - Point of Care 95 mg/dl (70-99)
--- NOTE | 2025-04-07 10:24 | CM ---
CM reviewed chart and met with brother and son bedside in ICU. Pt is [place]ian speaking.
Lives with and son in 1 story home, [address].
Independent in ADLs, personal care and ambulation.
Receives HD at [facility]. Takes the bus to treatment and family drives her home.
No hx VN or SNF
PCP: Cheryl Thomas
Pharmacy: [facility]
Anticipate discharge home with resumption of outpatient HD once medically stable. CM will continue to follow.
--- NOTE | 2025-04-07 10:39 | PTCARENOTE ---
HD being started at bedside
[2025-04-07 11:21] LABS: Glucose - Point of Care 106 mg/dl (70-99)
--- NOTE | 2025-04-07 11:25 | W.PN.NEPH.HD ---
Assessment
-
pt seen during HD
vitals stable
low k bath
strict renal diet and FR
HD gain tomorrow
Temp CVC is positional -functioning ok
await vasc intervention
Progress Note - Hemodialysis
-
Date of Service: April 07, 2025
Duration: 30 minutes and 3 hours
Potassium Bath: 2
Calcium Bath: 2.5
Opti-Dialyzer: 160
Ultrafiltration: Other (2-2.5kg)
Blood Flow: 400
Dialysate Flow: 600
Heparin: no
EPO: 4000
[2025-04-07] MEDS: FLEXBUMIN 25% FOR HEMODIALYSIS 12.5 GRAMS IV (11:47)
[2025-04-07] MEDS: MANNITOL 25% 12.5 GRAMS IV ×2 (11:48→13:14)
[2025-04-07] MEDS: RETACRIT 4000 UNITS IV (11:48)
[2025-04-07 12:09] LABS: Glycohemoglobin (HgbA1c) 5.4 % (4.0-5.6)
[2025-04-07 12:59] LABS: Glucose - Point of Care 114 mg/dl (70-99)
--- NOTE | 2025-04-07 14:46 | PTCARENOTE ---
HD completed at bedside. CHG bath completed and gown changed. Pt for transfer to tele.
[2025-04-07 16:51] LABS: Glucose - Point of Care 162 mg/dl (70-99)
[2025-04-07] MEDS: RENVELA 2400 MG PO (17:45)
[2025-04-07] MEDS: NOVOLOG FLEXPEN-LOW RESISTANCE 1 UNITS SC (17:46)
[2025-04-07] MEDS: PROTONIX 20 MG PO (19:30)
[2025-04-07] MEDS: HEPARIN 5000 UNITS SC (19:34)
[2025-04-07 21:12] LABS: Glucose - Point of Care 94 mg/dl (70-99)
[2025-04-07 22:40] LABS: Glucose - Point of Care 94 mg/dl (70-99)
[2025-04-08] VITALS (31 sets, daily range): BP systolic 92–150; BP diastolic 54–95; BMI 23.4
--- NOTE | 2025-04-08 01:29 | PTCARENOTE ---
Received pt at 1900, resting without complaint. [employer] Executive Director line used. AAOx3, KIRKPATRICK. Bedrest overnight. NSR-ST on tele, HR 90-100. BP 100s/60s. No edema. Afebrile. On RA, spo2 100%. Lungs CTA. + bowel sounds. NPO since midnight. Anuric. R groin HD cath
in place, dsg c/d/i. Call lion in reach
[2025-04-08 03:30] LABS: Glucose - Point of Care 105 mg/dl (70-99)
[2025-04-08 03:35] LABS: Hematocrit 26.3 % (37.0-47.0); Hemoglobin 8.9 g/dL (12.0-16.0); Mean Corp Hgb Conc. 33.8 g/dL (33.0-37.0); Mean Corpuscular Volume 95.6 fL (81.0-99.0); Nucleated Red Blood Cells % 0 %; Platelet Count 138 10^3/uL (130-400); Red Cell Dist. Width 13.2 % (11.5-14.5)
[2025-04-08 04:02] LABS: ALT (SGPT) 26 U/L (0-35); AST (SGOT) 28 U/L (14-36); Albumin 4.3 g/dl (3.5-5.0); Alkaline Phosphatase 162 U/L (38-126); Blood Urea Nitrogen 24 mg/dl (7-17); Calcium 9.3 mg/dl (8.4-10.2); Carbon Dioxide 31 mmol/L (22-30); Chloride 93 mmol/L (98-107); Glucose 98 mg/dl (70-99); Potassium 5.0 mmol/L (3.5-5.1); Sodium 132 mmol/L (135-145); Total Protein 6.8 g/dl (6.3-8.2); eGFR 7.37
[2025-04-08] MEDS: DILAUDID 0.25 MG IV (04:25)
--- NOTE | 2025-04-08 04:31 | PTCARENOTE ---
Pt. suddenly c/o 04/12 aching pain in R groin at HD cath insertion site. Site appears unchanged. No edema or redness at site or on RLE. ISABEL Samah to bedside to assess. IV dilaudid ordered and administered. Pt reports much improvement in pain after
administration.
[2025-04-08 05:33] LABS: Glucose - Point of Care 102 mg/dl (70-99)
[2025-04-08] MEDS: SYNTHROID 88 MCG PO (06:11)
[2025-04-08] MEDS: ZOFRAN 8 MG PO (06:24)
[2025-04-08] MEDS: RENVELA PO ×2 (07:17→11:57)
[2025-04-08] MEDS: NOVOLOG FLEXPEN-LOW RESISTANCE SC ×3 (07:25→16:33)
[2025-04-08] MEDS: FLEXBUMIN 25% FOR HEMODIALYSIS 12.5 GRAMS IV ×2 (09:10→10:04)
[2025-04-08] MEDS: MANNITOL 25% 12.5 GRAMS IV ×2 (09:10→10:04)
[2025-04-08] MEDS: RETACRIT 4000 UNITS IV (09:12)
--- NOTE | 2025-04-08 09:33 | W.PN.ANS.POP ---
Anesthesia Post Operative
- Anesthesia Post Op Note
Vital Signs Stable-See Nursing Note: Yes
Airway Patent: Yes
Adequate Pain Control: Yes
Change in Mental Status: No
Current Postoperative Nausea & Vomiting: Yes (complains of nausea)
Anesthesia Complications: No
General Anesthetic Recall: No
Unplanned Admission: No
Post Op Hydration Adequate: Yes
--- NOTE | 2025-04-08 09:49 | W.PN.VS ---
Addendum entered and electronically signed by Varun Cheung III, MD 04/08/25 13:13:
This patient was seen and examined in collaboration with ISABEL Latham. I agree with the history and physical exam as well as the assessment and plan. I have the following additions:
Patient Sister Olivia provided additional information and translation via telephone
Patient known to Dr. Vergara
Failed bilateral upper extremity arteriovenous accesses
Currently being dialyzed through femoral venous catheter
Reports that her left upper extremity brachiocephalic fistula has been problematic for quite some time
Specifically she reports consistent difficulty with needle cannulation
Now occluded
Has had several interventions on a anastomotic/perianastomotic stenosis involving the LUE AVF in the past
My recommendation is that we proceed with placement of a tunneled dialysis catheter, chest wall
Would like to regroup with her on other dialysis access options, perhaps in her right arm
Possible HERO catheter
Signed:
Varun Cheung III, MD
Vascular Surgery
[facility]
Original Note:
Today's Communication / Plan
-
Seen and assessed with Dr. Cheung
Assessment/Plan
-
39-year-old female with thrombosed AVF left upper extremity
Groin catheter placed by Dr. Noyola
Plan:
Recommend IR for tunneled catheter placement and groin catheter removal
HD per nephrology
RUE US tomorrow for planning of next permanent access- surgical discussion as outpatient, I will put follow up in DC
Subjective Data
-
Date of Service: April 08, 2025
Patient seen at bedside this a.m. with Dr. Cheung. Patient offers no complaints time. No events overnight. On HD via groin catheter at this time. Per HD nurse catheter is positional and flow volumes low.
Objective Data
-
Vital Signs
Temp Pulse Resp BP Pulse Ox
98.6 F 103 14 110/70 100
04/08/25 07:24 04/08/25 09:30 04/08/25 09:30 04/08/25 09:30 04/08/25 09:30
Intake and Output
04/07/25 04/08/25 04/09/25
06:59 06:59 06:59
Intake Total 700 / 700
Balance 700 / 700
Intake:
Oral fluids 600 / 600
IV piggybacks 100 / 100
Lab Results
04/08/25 03:18
04/08/25 03:18
Calcium 9.3 mg/dl (8.4-10.2) 04/08/25 03:18
Phosphorus 4.0 mg/dl (2.5-4.5) 04/06/25 14:59
Magnesium 2.6 mg/dl (1.6-2.3) H 04/06/25 14:59
Total Bilirubin 0.6 mg/dl (0.2-1.3) 04/08/25 03:18
AST 28 U/L (14-36) 04/08/25 03:18
ALT 26 U/L (0-35) 04/08/25 03:18
Alkaline Phosphatase 162 U/L (38-126) H 04/08/25 03:18
Total Protein 6.8 g/dl (6.3-8.2) 04/08/25 03:18
Albumin 4.3 g/dl (3.5-5.0) 04/08/25 03:18
Physical Exam
-
AAO x 3
No tachypnea on room air
Currently not tachycardic
Abdomen soft
Catheter clean dry and intact
Left upper extremity AVF site firm, no thrill
Hand warm and pink
--- NOTE | 2025-04-08 10:41 | PTCARENOTE ---
Rec'd care of patient at 0700. Language line used for translation. Patient alert and oriented. Denies pain. MAEx3. NSR/ST on tele. Rate in the 90-100's. Left AV fistula without a thrill/bruit. Lung sounds diminished in b/l base. Pulse ox 99-100% on
RA. +BS. NPO. Anuric. HD in progress. Per vascular surgery, plan for tunneled HD catheter placement.
--- NOTE | 2025-04-08 10:56 | W.PN.NEPH.HD ---
Assessment
-
Seen on HD. no complaints. VSS< access femoral line
d/w vascular surgery. will see if IR can place tunnelled IJ/SC CVC. then perhaps in future she can get a HeRO graft. otherwise, she will have few if any access options
Progress Note - Hemodialysis
-
Date of Service: April 08, 2025
Duration: 30 minutes and 3 hours
Potassium Bath: 2
Calcium Bath: 2.5
Opti-Dialyzer: 160
Ultrafiltration: Other (2kg)
Blood Flow: 400
Dialysate Flow: 600
Heparin: 0
EPO: 4000 units
[2025-04-08] MEDS: B COMPLEX w/VITAMIN C 1 CAPLET PO (11:43)
[2025-04-08] MEDS: PROCARDIA XL (EXTENDED RELEASE) 60 MG PO (11:43)
[2025-04-08] MEDS: COLACE 200 MG PO (11:43)
[2025-04-08] MEDS: PROTONIX 20 MG PO ×2 (11:43→20:22)
[2025-04-08] MEDS: VITAMIN D3 (cholecalciferol) 50 MCG PO (11:43)
[2025-04-08] MEDS: HEPARIN 5000 UNITS SC ×2 (11:44→20:22)
[2025-04-08] MEDS: COREG 12.5 MG PO (11:44)
[2025-04-08 12:38] LABS: Glucose - Point of Care 88 mg/dl (70-99)
--- NOTE | 2025-04-08 14:20 | W.PN.HOSP.TC ---
Today's Communication/Plan
-
HD catherer by [facility]
HD today
trend bmp
trend hgb
Assessment / Plan
Assessment / Plan
General: No Apparent Distress
HEENT: PERRLA
Respiratory: Clear to Auscultation; Negative Wheezes
Cardiac: Regular Rhythm and S1/S2, R hem HD catheter
GI: Soft and Nontender
Musculoskeletal: No Edema
Skin: Warm and Dry; Negative Rash
Neuro: AO x 3
Psych: Calm
39-year-old female past medical history of Emphysematous Pyelonephritis / Recurrent UTIs s/p left nephrectomy, ESRD on hemodialysis Tuesday, Tuesday, Tuesday, type 2 diabetes, hypertension, hypothyroidism, Celiac, Anxiety/Depression, presenting for
AV fistula problem. �Dialysis center was unable to access the fistula yesterday due to malfunction. �She only had 15 minutes of dialysis. �She returned to dialysis center today to attempt to reaccess but they were unable to do so and told her to
come to emergency room.
US
IMPRESSION: The left upper extremity arteriovenous fistula outflow vein is occluded (as is outflow stent).
Malfunctioning AV fistula left upper extremity
History of left upper extremity AV fistula malfunction due to stenosis status post angioplasty 10/01 by vascular surgery
Had left internal jugular dialysis cath placed then removed 11/15/2024
ESRD dialysis Tuesday
History of LEFT [id number] Pyelonephritis / Recurrent UTIs
- appreciate vascular surgery; patient is now s/p temp hemodialysis catheter with plans for tunneled HD catheter by interventional radiology.
- Appreciate renal consult
- receiving HD now
- Continue sevelamer, Dialyvite 1 tab p.o. daily
Acute hyperkalemia due to ESRD
-s/p bicarb and Insulin/Dextrose, Lokelma
-s/p Calcium
-now receiving HD. Potassium stabilized.
Essential HTN
-Continue nifedipine 60 mg twice daily, carvedilol 12.5 mg p.o. twice daily with hold parameters
Normocytic anemia -likely due to ESRD.
appears near baseline
Monitor hemoglobin. EPO and IV iron per nephrology
Hypothyroidism
Continue levothyroxine.
GERD
Continue-pantoprazole.
DM2 -diet controlled.
Celiac disease
- Gluten-free diet
Full code
Anticipated Discharge: > 48 hours
Subjective/Interval History
-
Date of Service: April 08, 2025
seen on HD. offers no complaints
Objective Data
-
Labs:
Laboratory Results
04/08/25
03:18
WBC 7.1
Hgb 8.9 L
Hct 26.3 L
Plt Count 138
Sodium 132 L
Potassium 5.0
Chloride 93 L
Carbon Dioxide 31 H
BUN 24 H
Creatinine 6.8 H*
Glucose 98
Calcium 9.3
Total Bilirubin 0.6
AST 28
ALT 26
Alkaline Phosphatase 162 H
Vital Signs:
Vital Signs
Temp Pulse Resp BP Pulse Ox
98.9 F 97 15 95/54 100
04/08/25 11:23 04/08/25 14:00 04/08/25 14:00 04/08/25 14:00 04/08/25 14:00
I&O
04/07/25 04/08/25 04/09/25
06:59 06:59 06:59
Intake Total 700 / 700
Balance 700 / 700
--- NOTE | 2025-04-08 15:38 | CM ---
Per Vascular: Failed bilateral upper extremity arteriovenous accesses, being dialyzed through femoral venous catheter. Recommend placement of a tunneled dialysis catheter, chest wall. Consider other dialysis access options, perhaps in her right
arm. Discharge POC: Anticipate home with no needs.
[2025-04-08] MEDS: RENVELA 2400 MG PO (16:32)
--- NOTE | 2025-04-08 16:36 | PTCARENOTE ---
Per [facility], placement of tunneled HD catheter planned for tomorrow. Hospitalist notified. Diet ordered. Patient assisted in ordering dinner. NPO @ midnight.
[2025-04-08 16:45] LABS: Glucose - Point of Care 89 mg/dl (70-99)
--- NOTE | 2025-04-08 18:14 | TRANSFER ---
Patient transferred to with belongings. present.
[2025-04-08] MEDS: COREG PO (20:28)
[2025-04-08] MEDS: PROCARDIA XL (EXTENDED RELEASE) PO (20:28)
[2025-04-08 21:39] LABS: Glucose - Point of Care 110 mg/dl (70-99)
[2025-04-09] VITALS (7 sets, daily range): BP systolic 87–112; BP diastolic 52–65; BMI 23.4
[2025-04-09 07:05] LABS: Glucose - Point of Care 106 mg/dl (70-99)
[2025-04-09] MEDS: NOVOLOG FLEXPEN-LOW RESISTANCE SC ×3 (07:59→17:27)
[2025-04-09] MEDS: B COMPLEX w/VITAMIN C 1 CAPLET PO (08:01)
[2025-04-09] MEDS: PROTONIX 20 MG PO ×2 (08:01→22:00)
[2025-04-09] MEDS: PROCARDIA XL (EXTENDED RELEASE) 60 MG PO (08:01)
[2025-04-09] MEDS: COREG 12.5 MG PO (08:01)
[2025-04-09] MEDS: VITAMIN D3 (cholecalciferol) 50 MCG PO (08:01)
[2025-04-09] MEDS: SYNTHROID 88 MCG PO (08:02)
[2025-04-09] MEDS: HEPARIN 5000 UNITS SC ×2 (08:03→20:23)
[2025-04-09] MEDS: RENVELA PO ×2 (08:03→11:43)
[2025-04-09] MEDS: COLACE 200 MG PO (08:03)
[2025-04-09] MEDS: TYLENOL 650 MG PO (08:07)
--- NOTE | 2025-04-09 11:07 | W.PN.HOSP.TC ---
Today's Communication/Plan
-
Plan for iRad tunneled dialysis catheter
Await nephrology input
Ultrasound pending
Assessment / Plan
Assessment / Plan
General: No Apparent Distress, on cell phone, comfortable
HEENT: Neck is supple, trachea midline
Respiratory: Clear to Auscultation; Negative Wheezes
Cardiac: Regular Rhythm and S1/S2, R hem HD catheter
GI: Soft and Nontender
Musculoskeletal: No Edema. Left upper extremity AV fistula noted
Skin: Warm and Dry; Negative Rash
Neuro: AO x 3
Psych: Calm
39-year-old female past medical history of Emphysematous Pyelonephritis / Recurrent UTIs s/p left nephrectomy, ESRD on hemodialysis Tuesday, Tuesday, Tuesday, type 2 diabetes, hypertension, hypothyroidism, Celiac, Anxiety/Depression, presenting for
AV fistula problem. �Dialysis center was unable to access the fistula yesterday due to malfunction. �She only had 15 minutes of dialysis. �She returned to dialysis center today to attempt to reaccess but they were unable to do so and told her to
come to emergency room.
US
IMPRESSION: The left upper extremity arteriovenous fistula outflow vein is occluded (as is outflow stent).
Malfunctioning AV fistula left upper extremity
History of left upper extremity AV fistula malfunction due to stenosis status post angioplasty 10/01 by vascular surgery
Had left internal jugular dialysis cath placed then removed 11/15/2024
ESRD dialysis Tuesday
History of LEFT [id number] Pyelonephritis / Recurrent UTIs
- appreciate vascular surgery; patient is now s/p temp hemodialysis catheter with plans for tunneled HD catheter by interventional radiology later today.
- Appreciate renal consult
- HD repeat tomorrow?
- Continue sevelamer, Dialyvite 1 tab p.o. daily
- Ultrasound AV fistula right upper extremity pending
Acute hyperkalemia due to ESRD
-s/p bicarb and Insulin/Dextrose, Lokelma
-s/p Calcium
-now receiving HD. Potassium stabilized.
Essential HTN
-Continue nifedipine 60 mg twice daily, carvedilol 12.5 mg p.o. twice daily with hold parameters
Normocytic anemia -likely due to ESRD.
appears near baseline
Monitor hemoglobin. EPO and IV iron per nephrology
Hypothyroidism
Continue levothyroxine.
GERD
Continue-pantoprazole.
DM2 -diet controlled.
Celiac disease
- Gluten-free diet
Full code
Anticipated Discharge: > 48 hours
Subjective/Interval History
-
Date of Service: April 09, 2025
Seen and examined using court interpreter
Patient without any complaints.
Objective Data
-
Vital Signs:
Vital Signs
Temp Pulse Resp BP Pulse Ox
99.1 F 96 16 112/65 100
04/09/25 07:34 04/09/25 08:01 04/09/25 07:34 04/09/25 08:01 04/09/25 07:34
I&O
04/08/25 04/09/25 04/10/25
06:59 06:59 06:59
Intake Total 700 / 700
Balance 700 / 700
--- NOTE | 2025-04-09 12:56 | CM ---
CM following re: discharge planning.
Reviewed pt's chart, met with pt.
Pt lives with and son in 1 story home, [address]. Independent in ADLs, personal care and ambulation.
Receives HD at [facility]. Takes the bus to treatment and family drives her home.
D/C plan: home with resumption of outpatient HD once medically stable.
CM will continue to follow with discharge plan updates as hospitalization progresses
[2025-04-09 12:57] LABS: Glucose - Point of Care 95 mg/dl (70-99)
--- NOTE | 2025-04-09 13:36 | W.PN.NEPH.PH ---
Today's Communication / Plan
-
HD tomorrow
Assessment/Plan
-
IMP:
Occluded left UE AVF last angioplasty 10/01/24
ESRD on HD M[facility] since 2018
DM-II
Hypothyroidism
Celiac Disease
GERD
Emphysematous Pyelonephritis / Recurrent UTIs
Left Nephrectomy (2015)
LUE AVF-reportedly placed 2yrs ago-LEFT arm fistulogram demonstrated mild recurrent in-stent stenoses,h/o balloon angioplasty 2022
hyperphosphatemia
Fatty liver
Cholelithiasis
Anxiety/depression
Plan:
a/w nonfunction AVF
for tunnelled HD CVC today
HD tomorrow
US AVF unfavorable
follow K
-
-
Date of Service: April 09, 2025
CC / HPI / ROS
-
Chief Complaint:
ESRD
History of Present Illness:
BP stable
Hgb drifting down 8.9
tolerated HD yesterday
K down to 5.0
Review of Systems:
no CP/SOB
Labs
-
Labs:
WBC 7.1 10^3/uL (4.8-10.8) 04/08/25 03:18
RBC 2.75 10^6/uL (4.20-5.40) L 04/08/25 03:18
Hgb 8.9 g/dL (12.0-16.0) L 04/08/25 03:18
Hct 26.3 % (37.0-47.0) L 04/08/25 03:18
Plt Count 138 10^3/uL (130-400) 04/08/25 03:18
Sodium 132 mmol/L (135-145) L 04/08/25 03:18
Potassium 5.0 mmol/L (3.5-5.1) 04/08/25 03:18
Chloride 93 mmol/L (98-107) L 04/08/25 03:18
Carbon Dioxide 31 mmol/L (22-30) H 04/08/25 03:18
BUN 24 mg/dl (7-17) H 04/08/25 03:18
Creatinine 6.8 mg/dL (0.6-1.0) H* 04/08/25 03:18
eGFR 7.37 04/08/25 03:18
Glucose 98 mg/dl (70-99) 04/08/25 03:18
Calcium 9.3 mg/dl (8.4-10.2) 04/08/25 03:18
Phosphorus 4.0 mg/dl (2.5-4.5) 04/06/25 14:59
Albumin 4.3 g/dl (3.5-5.0) 04/08/25 03:18
Physical Exam
-
Vital Signs:
Vital Signs
Temp Pulse Resp BP Pulse Ox
98 F 87 20 92/54 100
04/09/25 13:20 04/09/25 13:20 04/09/25 13:20 04/09/25 13:20 04/09/25 13:20
Cardiovascular:: Regular rate and rhythm
Respiratory:: Bilateral: Coarse
Lung Excursion:: Normal
Abdomen:: Nontender and Soft
Bowel Sounds:: Normal
Extremity Edema:: None: Bilateral:
[2025-04-09] MEDS: RENVELA 2400 MG PO (17:25)
[2025-04-09 17:28] LABS: Glucose - Point of Care 77 mg/dl (70-99)
[2025-04-09] MEDS: COREG PO (20:28)
[2025-04-09] MEDS: PROCARDIA XL (EXTENDED RELEASE) PO (20:29)
[2025-04-09 22:01] LABS: Glucose - Point of Care 138 mg/dl (70-99)
[2025-04-10] VITALS (9 sets, daily range): BP systolic 94–128; BP diastolic 56–80; BMI 23.3
[2025-04-10] MEDS: SYNTHROID 88 MCG PO (06:00)
[2025-04-10] MEDS: HEPARIN 500 UNITS IV ×2 (07:55→08:54)
[2025-04-10 08:14] LABS: Glucose - Point of Care 85 mg/dl (70-99)
[2025-04-10] MEDS: RENVELA PO ×2 (08:30→11:34)
[2025-04-10 08:39] LABS: Hematocrit 27.2 % (37.0-47.0); Hemoglobin 9.0 g/dL (12.0-16.0); Mean Corp Hgb Conc. 33.1 g/dL (33.0-37.0); Mean Corpuscular Volume 94.4 fL (81.0-99.0); Platelet Count 136 10^3/uL (130-400); Red Cell Dist. Width 13.2 % (11.5-14.5)
[2025-04-10] MEDS: RETACRIT 10000 UNITS IV (08:40)
[2025-04-10] MEDS: MANNITOL 25% 12.5 GRAMS IV (08:46)
[2025-04-10] MEDS: FLEXBUMIN 25% FOR HEMODIALYSIS 12.5 GRAMS IV ×2 (08:47→10:30)
[2025-04-10] MEDS: NOVOLOG FLEXPEN-LOW RESISTANCE SC ×3 (08:50→17:41)
[2025-04-10] MEDS: COLACE 200 MG PO (09:01)
[2025-04-10] MEDS: PROTONIX 20 MG PO ×2 (09:01→19:58)
[2025-04-10] MEDS: VITAMIN D3 (cholecalciferol) 50 MCG PO (09:01)
[2025-04-10] MEDS: B COMPLEX w/VITAMIN C 1 CAPLET PO (09:01)
[2025-04-10] MEDS: PROCARDIA XL (EXTENDED RELEASE) PO ×2 (09:05→19:57)
[2025-04-10] MEDS: COREG PO ×2 (09:05→19:57)
[2025-04-10 09:06] LABS: Carbon Dioxide 27 mmol/L (22-30); Chloride 94 mmol/L (98-107); Potassium 4.6 mmol/L (3.5-5.1); Sodium 135 mmol/L (135-145)
[2025-04-10] MEDS: HEPARIN 5000 UNITS SC ×2 (09:06→19:58)
[2025-04-10] MEDS: HEPARIN 2800 UNITS INTRACATH (11:22)
[2025-04-10 11:31] LABS: Glucose - Point of Care 104 mg/dl (70-99)
--- NOTE | 2025-04-10 11:41 | W.PN.NEPH.HD ---
Assessment
-
pt seen during HD
vitals stable
UF as tolerated
temp femoral line is positional
unable to get tunneled catheter yet, await CT angio of chest?may be subclavian one
possible HERO catheter if fails above-vasc follows
reviewed with pt in detail about future options of dialysis are very limited to none hence recommended to review of transplant with her HD unit
also review option of PD too
she became emotional during the visit -reassured that she is not in emergency situation however wanted a better plan in place
her sister helped in translation over the phone
Progress Note - Hemodialysis
-
Date of Service: April 10, 2025
Duration: 30 minutes and 3 hours
Potassium Bath: 2
Calcium Bath: 2.5
Opti-Dialyzer: 160
Ultrafiltration: Other (1.5-2.5kg)
Blood Flow: 300
Dialysate Flow: 600
Heparin: yesx2
EPO: [id number]
--- NOTE | 2025-04-10 12:22 | W.PN.HOSP.TC ---
Today's Communication/Plan
-
CT chest pending
iRad for catheter placement afterwards
Remains n.p.o. for procedure
Hemodialysis today
Monitor blood pressure
Assessment / Plan
Assessment / Plan
General: No Apparent Distress, on hemodialysis
HEENT: Neck is supple, trachea midline
Respiratory: Clear to Auscultation; Negative Wheezes
Cardiac: Regular Rhythm and S1/S2, R hem HD catheter
GI: Soft and Nontender
Musculoskeletal: No Edema. Left upper extremity AV fistula noted
Skin: Warm and Dry; Negative Rash
Neuro: AO x 3
Psych: Calm
39-year-old female past medical history of Emphysematous Pyelonephritis / Recurrent UTIs s/p left nephrectomy, ESRD on hemodialysis Tuesday, Tuesday, Tuesday, type 2 diabetes, hypertension, hypothyroidism, Celiac, Anxiety/Depression, presenting for
AV fistula problem. �Dialysis center was unable to access the fistula yesterday due to malfunction. �She only had 15 minutes of dialysis. �She returned to dialysis center today to attempt to reaccess but they were unable to do so and told her to
come to emergency room.
US
IMPRESSION: The left upper extremity arteriovenous fistula outflow vein is occluded (as is outflow stent).
Malfunctioning AV fistula left upper extremity
History of left upper extremity AV fistula malfunction due to stenosis status post angioplasty 10/01 by vascular surgery
Had left internal jugular dialysis cath placed then removed 11/15/2024
ESRD dialysis Tuesday
History of LEFT [id number] Pyelonephritis / Recurrent UTIs
- appreciate vascular surgery; patient is now s/p temp hemodialysis catheter with plans for tunneled HD catheter by interventional radiology. Per discussion with interventional radiology, vascular surgery and nephrology. Plan for CT angiogram to
assess for vasculature as patient with history of stenosis and with plan to see if subclavian tunneled HD catheter would be possible which can be converted to hero graft in the future per vascular.
- Appreciate renal consult
- HD today.
- Continue sevelamer, Dialyvite 1 tab p.o. daily
- Ultrasound AV fistula right upper extremity noted
Acute hyperkalemia due to ESRD
-s/p bicarb and Insulin/Dextrose, Lokelma
-s/p Calcium
-now receiving HD. Potassium stabilized.
Essential HTN
-Continue nifedipine 60 mg twice daily, carvedilol 12.5 mg p.o. twice daily with hold parameters
- May need to decrease dose/frequency as did not receive medication as blood pressure was on softer side.
Normocytic anemia -likely due to ESRD.
appears near baseline
Monitor hemoglobin. EPO and IV iron per nephrology
Hypothyroidism
Continue levothyroxine.
GERD
Continue-pantoprazole.
DM2 -diet controlled.
Celiac disease
- Gluten-free diet
Full code
Anticipated Discharge: > 48 hours
Subjective/Interval History
-
Date of Service: April 10, 2025
seen on HD
no complaints
Objective Data
-
Labs:
Laboratory Results
04/10/25
07:37
WBC 6.2
Hgb 9.0 L
Hct 27.2 L
Plt Count 136
Sodium 135
Potassium 4.6
Chloride 94 L
Carbon Dioxide 27
Vital Signs:
Vital Signs
Temp Pulse Resp BP Pulse Ox
98.7 F 93 18 94/56 100
04/10/25 11:28 04/10/25 11:28 04/10/25 11:28 04/10/25 11:28 04/10/25 11:28
I&O
04/09/25 04/10/25 04/11/25
06:59 06:59 06:59
Intake Total 720 / 720
Balance 720 / 720
--- NOTE | 2025-04-10 13:20 | CM ---
CM following re: discharge planning.
Reviewed pt's chart, met with pt.
Per chart review, Remains n.p.o. for procedure, Hemodialysis today, continue supportive care.
Pt lives with and son in 1 story home, [address]. Independent in ADLs, personal care and ambulation.
Receives HD at [facility]. Takes the bus to treatment and family drives her home.
D/C plan: home with resumption of outpatient HD once medically stable.
CM will continue to follow with discharge plan updates as hospitalization progresses
[2025-04-10] MEDS: ANCEF 5 IV (16:02)
[2025-04-10 17:39] LABS: Glucose - Point of Care 86 mg/dl (70-99)
[2025-04-10] MEDS: RENVELA 2400 MG PO (17:41)
[2025-04-10 21:07] LABS: Glucose - Point of Care 117 mg/dl (70-99)
[2025-04-11 03:03] VITALS: BP 113/69
[2025-04-11] MEDS: TYLENOL 650 MG PO (03:20)
[2025-04-11] MEDS: SYNTHROID 88 MCG PO (05:41)
[2025-04-11 06:00] VITALS: BMI 23.1
[2025-04-11] MEDS: DILAUDID 0.25 MG IV (06:40)
[2025-04-11 07:57] VITALS: BP 120/79
[2025-04-11] MEDS: PROCARDIA XL (EXTENDED RELEASE) 60 MG PO (08:31)
[2025-04-11] MEDS: PROTONIX 20 MG PO (08:31)
[2025-04-11] MEDS: COLACE 200 MG PO (08:31)
[2025-04-11] MEDS: B COMPLEX w/VITAMIN C 1 CAPLET PO (08:31)
[2025-04-11] MEDS: VITAMIN D3 (cholecalciferol) 50 MCG PO (08:31)
[2025-04-11] MEDS: RENVELA 2400 MG PO (08:31)
[2025-04-11] MEDS: COREG 12.5 MG PO (08:32)
[2025-04-11] MEDS: HEPARIN 5000 UNITS SC (08:32)
[2025-04-11 08:39] LABS: Glucose - Point of Care 111 mg/dl (70-99)
[2025-04-11] MEDS: NOVOLOG FLEXPEN-LOW RESISTANCE SC ×2 (08:54→12:33)
--- NOTE | 2025-04-11 09:35 | W.PN.UPDATE ---
Update Note
Progress Note Update
Outpatient follow-up added to the chart to discuss surgical plan for permanent access
--- NOTE | 2025-04-11 09:44 | W.PN.HOSP.TC ---
Addendum entered and electronically signed by Josh Ross MD 04/11/25 13:24:
Hyponatremia, resolved
Original Note:
Today's Communication/Plan
-
dc today
op vascular f/u
Assessment / Plan
Assessment / Plan
General: No Apparent Distress, on hemodialysis
HEENT: Neck is supple, trachea midline
Respiratory: Clear to Auscultation; Negative Wheezes
Cardiac: Regular Rhythm and S1/S2,
GI: Soft and Nontender
Musculoskeletal: No Edema. Left upper extremity AV fistula noted. Left chest wall HD catheter noted.
Skin: Warm and Dry; Negative Rash
Neuro: AO x 3
Psych: Calm
39-year-old female past medical history of Emphysematous Pyelonephritis / Recurrent UTIs s/p left nephrectomy, ESRD on hemodialysis Tuesday, Tuesday, Tuesday, type 2 diabetes, hypertension, hypothyroidism, Celiac, Anxiety/Depression, presenting for
AV fistula problem. �Dialysis center was unable to access the fistula yesterday due to malfunction. �She only had 15 minutes of dialysis. �She returned to dialysis center today to attempt to reaccess but they were unable to do so and told her to
come to emergency room. A new left subclavian tunneled HD catheter was placed. Patient received regular scheduled hemodialysis. Labs were stable. Plan would be for outpatient vascular surgery follow-up for permanent access discussion.
US
IMPRESSION: The left upper extremity arteriovenous fistula outflow vein is occluded (as is outflow stent).
Malfunctioning AV fistula left upper extremity
History of left upper extremity AV fistula malfunction due to stenosis status post angioplasty 10/01 by vascular surgery
Had left internal jugular dialysis cath placed then removed 11/15/2024
ESRD dialysis Tuesday
History of LEFT [id number] Pyelonephritis / Recurrent UTIs
-s/p new left external jugular dialysis tunneled HD catheter was placement on 04/10/25 by IRLOPEZ. Plan for outpatient vascular surgery follow-up for permanent access.
- Appreciate renal consult
- Continue sevelamer, Dialyvite 1 tab p.o. daily
- Ultrasound AV fistula right upper extremity noted
Acute hyperkalemia due to ESRD
-s/p bicarb and Insulin/Dextrose, Lokelma
-s/p Calcium
-now receiving HD. Potassium stabilized.
Essential HTN
- Patient blood pressure seems to be well-controlled and has not been receiving medication of nifedipine and carvedilol at times due to soft blood pressure. Probably decreased nifedipine frequency to daiyl. Outpatient follow-up with nephrology for
further management.
Normocytic anemia -likely due to ESRD.
appears near baseline
Monitor hemoglobin. EPO and IV iron per nephrology
Hypothyroidism
Continue levothyroxine.
GERD
Continue-pantoprazole.
DM2 -diet controlled.
Celiac disease
- Gluten-free diet
Full code
Discussed with nephrology. Okay for discharge. No plan for hemodialysis today. Can continue with scheduled outpatient hemodialysis.
More than 30 minutes spent in discharge including
Final examination of the patient
Summarizing hospital stay
Instructions for continuing care to all relevant caregivers
Preparation of discharge records, prescriptions, and referral forms
Total time spent (in minutes): 53
Anticipated Discharge: Today
Subjective/Interval History
-
Date of Service: April 11, 2025
Seen and examined using pricing intern
Patient stated of mild pruritus at the catheter site earlier today. Currently without any discomfort.
Right femoral HD catheter was removed yesterday.
Objective Data
-
Vital Signs:
Vital Signs
Temp Pulse Resp BP Pulse Ox
98.8 F 99 16 120/79 98
04/11/25 07:57 04/11/25 08:32 04/11/25 07:57 04/11/25 08:32 04/11/25 07:57
I&O
04/10/25 04/11/25 04/12/25
06:59 06:59 06:59
Intake Total 720 / 720 240 / 240
Balance 720 / 720 240 / 240
--- NOTE | 2025-04-11 10:11 | W.DCSUMMARY ---
Discharge Summary
Discharge Data
Date of Admission: 04/06/25
Date of Discharge: 04/11/25
-
Pending Results: No
Hospital Course
39-year-old female past medical history of Emphysematous Pyelonephritis / Recurrent UTIs s/p left nephrectomy, ESRD on hemodialysis Tuesday, Tuesday, Tuesday, type 2 diabetes, hypertension, hypothyroidism, Celiac, Anxiety/Depression, presenting for
AV fistula problem. �Dialysis center was unable to access the fistula due to malfunction. �She only had 15 minutes of dialysis. �She returned to dialysis center to attempt to reaccess but they were unable to do so and told her to come to emergency
room. Patient was found to have a left upper extremity AV fistula to be thrombosed. Vascular surgery was consulted. Patient received temporary right femoral HD catheter and underwent dialysis. Patient potassium was elevated but stabilized. A
new left subclavian tunneled HD catheter was placed via interventional radiology. Blood pressures were noted and at times on the lower end does nifedipine was changed to daily. Plan would be for outpatient vascular surgery follow-up for
permanent access discussion.
Discharge Plan
-
Patient Disposition: Home (Routine Discharge)
Discharge Diagnosis/Procedures: Malfunctioning AV fistula left upper extremity status post left external jugular HD catheter placement
Acute hyperkalemia
Diet: 2 Gram Sodium
Additional Diets: low potassium diet
Driving Restrictions: As prior to admission
Activity Restrictions/Additional Instructions:
Follow-up with your primary doctor or canvas goods maker for blood pressure management.
Referrals:
Cheryl Thomas PA-C [Family Provider, Family Practice] - in less than 1 week
Fabricio Vergara MD [Active, Vascular Surgery] - 04/30/25 11:00 am
Referral Note: Vascular surgery office follow-up
Prescriptions:
Continued
pantoprazole 20 MG tablet,delayed release (DR/EC)
20 mg PO BID
sevelamer carbonate 800 mg Tablet
2,400 mg PO AC
levothyroxine [Synthroid] 88 mcg Tablet
88 mcg PO DAILY
carvedilol 12.5 mg Tablet
12.5 mg PO BID
Dialyvite 100-1 mg Tablet
1 tab PO DAILY
ondansetron 8 mg Tablet,Disintegrating
8 mg PO [id number] PRN (Reason: nausea)
acetaminophen [Tylenol] 325 mg Tablet
650 mg PO Q6HPRN PRN (Reason: mild pain)
sevelamer carbonate 800 mg Tablet
1,600 mg PO DAILYPRN PRN (Reason: snacks)
docusate sodium 100 mg Tablet
200 mg PO DAILY
cholecalciferol (vitamin D3) 50 mcg (2,000 unit) Tablet
50 mcg PO DAILY
Changed
nifedipine 60 mg Tablet Extended Release
60 mg PO DAILY Qty: 0 0RF
Discharge Orders:
Discharge Patient (As Directed); Ordered 04/11/25
Ordered By: Josh Ross
Discharge Date and Time
Print Language: AMERICAN
[2025-04-11 11:12] VITALS: BP 104/62
--- NOTE | 2025-04-11 12:05 | CM ---
CM following re: discharge planning.
Reviewed pt's chart. met with pt and spoke to pt's sister Olivia over the phone to update on discharge plan progress.
Discharge order noted. Both pt and her sister are aware, expressed her agreement wit discharge. Pt's sister confirmed she will transport pt home and pt will resume outpatient HD treatment at [facility] outpatient HD treatment center
tomorrow.
CM spoke to [facility] HD treatment center TON Horvath and she confirmed that pt is accepted for HD treatment tomorrow. Requested pt's clinical with flow sheets faxed to [facility] [phone]
Pt lives with and son in 1 story home, [address]. Independent in ADLs, personal care and ambulation.
Receives HD at [facility] M--. Takes the bus to treatment and family drives her home.
Please fax discharge instructions to [facility] HD treatment center [phone]
D/C plan: home with resumption of outpatient HD treatment at [facility] outpatient HD treatment center in [place] and family support. Sister Olivia to transport.
--- NOTE | 2025-04-11 12:25 | W.PN.NEPH.PH ---
Today's Communication / Plan
-
ok for d/c
Assessment/Plan
-
IMP:
Occluded left UE AVF last angioplasty 10/01/24
ESRD on HD M[facility] since 2018
DM-II
Hypothyroidism
Celiac Disease
GERD
Emphysematous Pyelonephritis / Recurrent UTIs
Left Nephrectomy (2015)
LUE AVF-reportedly placed 2yrs ago-LEFT arm fistulogram demonstrated mild recurrent in-stent stenoses,h/o balloon angioplasty 2022
hyperphosphatemia
Fatty liver
Cholelithiasis
Anxiety/depression
Plan:
a/w nonfunction AVF
difficult access , now with tunneled left ext jugular CVC , appt IR input
she will still need to follow with vasc for other access options
reviewed again to find out at dialysis unit regarding PD and transplant status based on her resident status
ok for d/c and have HD at the unit tomorrow
ok to decrease procardia 30,mg bid for soft Bps
d/w pt and sister on phone who translated
-
-
Date of Service: April 11, 2025
CC / HPI / ROS
-
Chief Complaint:
ESRD
History of Present Illness:
BP stable
tolerated HD yesterday
s/p ext jugular HD catheter
Review of Systems:
no CP/SOB
Labs
-
Labs:
WBC 6.2 10^3/uL (4.8-10.8) 04/10/25 07:37
RBC 2.88 10^6/uL (4.20-5.40) L 04/10/25 07:37
Hgb 9.0 g/dL (12.0-16.0) L 04/10/25 07:37
Hct 27.2 % (37.0-47.0) L 10/08/25 07:37
Plt Count 136 10^3/uL (130-400) 04/10/25 07:37
Sodium 135 mmol/L (135-145) 04/10/25 07:37
Potassium 4.6 mmol/L (3.5-5.1) 04/10/25 07:37
Chloride 94 mmol/L (98-107) L 04/10/25 07:37
Carbon Dioxide 27 mmol/L (22-30) 04/10/25 07:37
BUN 24 mg/dl (7-17) H 04/08/25 03:18
Creatinine 6.8 mg/dL (0.6-1.0) H* 04/08/25 03:18
eGFR 7.37 04/08/25 03:18
Glucose 98 mg/dl (70-99) 04/08/25 03:18
Calcium 9.3 mg/dl (8.4-10.2) 04/08/25 03:18
Phosphorus 4.0 mg/dl (2.5-4.5) 04/06/25 14:59
Albumin 4.3 g/dl (3.5-5.0) 04/08/25 03:18
Physical Exam
-
Vital Signs:
Vital Signs
Temp Pulse Resp BP Pulse Ox
98.4 F 93 16 104/62 100
04/11/25 11:12 04/11/25 11:12 04/11/25 11:12 04/11/25 11:12 04/11/25 11:12
Cardiovascular:: Regular rate and rhythm
Respiratory:: Bilateral: CTA
Lung Excursion:: Normal
Abdomen:: Nontender and Soft
Bowel Sounds:: Normal
Extremity Edema:: None: Bilateral:
Cheung Catheter: No
[2025-04-11 12:31] LABS: Glucose - Point of Care 244 mg/dl (70-99)
[2025-04-11] MEDS: RENVELA PO ×2 (12:32→12:43)
[2025-04-11] MEDS: NOVOLOG FLEXPEN-LOW RESISTANCE 2 UNITS SC (12:37)
--- NOTE | 2025-04-11 12:48 | PN.CDI ---
CDI
- -
CDI:
Physician Documentation Request
Admit Date: 04/06/25 16:22
Dear Doctor Cody,
Clinical Indicators:
Patient admitted with malfunctioning AV fistula left upper extremity.
HD 04/07, 04/08, 04/10
04/07 FR 1200 ml/day
Sodium trend:
04/06/25 04/07/25 04/07/25
21:57 04:01 07:41
Sodium 131 L 133 L 133 L
04/08/25 04/10/25
03:18 07:37
Sodium 132 L 135
Based on the above, could you clarify in the progress notes, the appropriate diagnosis, if significant, that supports the above abnormalities and additional evaluation, monitoring and/or treatment rendered:
Hyponatremia, resolved
Abnormal lab values, clinically insignificant
Other
Use of terms such as suspected, likely, concern for, or probable (associated with a specific diagnosis that is being evaluated, monitored, or treated as if it exists) are acceptable and can be coded in the inpatient setting, when documented at the
time of discharge.
Thank you,
Qi Baird RN
CDI Specialist
Please use your independent medical judgment in providing your response.
== END 2025-04-11 14:03 | disposition home or self-care (01) | DRG 314 ==
LOC: 2 NORTH 16:22
PROVIDERS: Clinical Nurse Specialist Family Health; Nurse Practitioner Family; Physician Assistant; Radiology Diagnostic Radiology; Specialist; ADMITTING PHYSICIAN Hospitalist; ATTENDING PHYSICIAN Hospitalist; CONSULT PHYSICIAN Internal Medicine; CONSULT PHYSICIAN Surgery; EMERGENCY PHYSICIAN Emergency Medicine; FAMILY PHYSICIAN Physician Assistant
PROC: 5A1D70Z Performance of Urinary Filtration, Intermittent, Less than 6 Hours Per Day (ICD-10-PCS; 2025-04-07)
PROC: B51 Imaging, Veins, Fluoroscopy (ICD-10-PCS; 2025-04-10)
PROC: 0JH63XZ Insertion of Tunneled Vascular Access Device into Chest Subcutaneous Tissue and Fascia, Percutaneous Approach (ICD-10-PCS; 2025-04-10)
PROC: 05H Upper Veins, Insertion (ICD-10-PCS; 2025-04-10)
DX: T82.510A Breakdown (mechanical) of surgically created arteriovenous fistula, initial encounter (principal); N18.6 End stage renal disease; I13.2 Hypertensive heart and chronic kidney disease with heart failure and with stage 5 chronic kidney disease, or end stage renal disease; E87.1 Hypo-osmolality and hyponatremia; E87.5 Hyperkalemia; T82.818A Embolism due to vascular prosthetic devices, implants and grafts, initial encounter; Y71.2 Prosthetic and other implants, materials and accessory cardiovascular devices associated with adverse incidents; E11.22 Type 2 diabetes mellitus with diabetic chronic kidney disease; I50.9 Heart failure, unspecified; Z99.2 Dependence on renal dialysis; D64.9 Anemia, unspecified; E03.9 Hypothyroidism, unspecified; K21.9 Gastro-esophageal reflux disease without esophagitis; K90.0 Celiac disease; Y83.2 Surgical operation with anastomosis, bypass or graft as the cause of abnormal reaction of the patient, or of later complication, without mention of misadventure at the time of the procedure; F32.A Depression, unspecified; F41.9 Anxiety disorder, unspecified; Z79.4 Long term (current) use of insulin; Z87.440 Personal history of urinary (tract) infections; Z90.5 Acquired absence of kidney
CPT/HCPCS: 36558; 71275; 75827; 76937; 77001; 80048; 80051; 80053; 82962; 83036; 83735; 84100; 84132; 85025; 85027; 87070; 93005; 93986; 93990; 94640; 96374; 96375; 99152; 99153; 99285; C1750; C1769; G0257; P9047; Q5106; Q9967

== ENCOUNTER → 2025-04-27 09:08 | Outpatient (REF) | payer MEDICAID, SELFPAY ==
[2025-04-27 10:46] LABS: Hematocrit 34.3 % (37.0-47.0); Hemoglobin 10.9 g/dL (12.0-16.0); Mean Corp Hgb Conc. 31.8 g/dL (33.0-37.0); Mean Corpuscular Volume 99.7 fL (81.0-99.0); Nucleated Red Blood Cells % 0 %; Platelet Count 149 10^3/uL (130-400); Red Cell Dist. Width 14.1 % (11.5-14.5)
[2025-04-27 11:15] LABS: ALT (SGPT) 38 U/L (0-35); AST (SGOT) 46 U/L (14-36); Albumin 5.2 g/dl (3.5-5.0); Alkaline Phosphatase 246 U/L (38-126); Blood Urea Nitrogen 18 mg/dl (7-17); Calcium 9.7 mg/dl (8.4-10.2); Carbon Dioxide 30 mmol/L (22-30); Chloride 97 mmol/L (98-107); Glucose 104 mg/dl (70-99); HDL Cholesterol 92 mg/dl; LDL Cholesterol, Calculated 73 mg/dl; Potassium 4.5 mmol/L (3.5-5.1); Sodium 135 mmol/L (135-145); Total Protein 8.6 g/dl (6.3-8.2); Very Low Density Lipoprotein 21 mg/dl (0-30); eGFR 10.40
== END ==
LOC: REG 09:08
PROVIDERS: ATTENDING PHYSICIAN Physician Assistant
DX: Z99.2 Dependence on renal dialysis (principal); R74.8 Abnormal levels of other serum enzymes; N80.129 Deep endometriosis of ovary, unspecified ovary; N18.6 End stage renal disease; K80.20 Calculus of gallbladder without cholecystitis without obstruction; K76.0 Fatty (change of) liver, not elsewhere classified; K59.04 Chronic idiopathic constipation; K21.9 Gastro-esophageal reflux disease without esophagitis; I77.0 Arteriovenous fistula, acquired; I12.9 Hypertensive chronic kidney disease with stage 1 through stage 4 chronic kidney disease, or unspecified chronic kidney disease; F41.9 Anxiety disorder, unspecified; F33.0 Major depressive disorder, recurrent, mild; E11.22 Type 2 diabetes mellitus with diabetic chronic kidney disease; E03.9 Hypothyroidism, unspecified; I25.10 Atherosclerotic heart disease of native coronary artery without angina pectoris; E78.2 Mixed hyperlipidemia
CPT/HCPCS: 36415; 80053; 80061; 85025

== ENCOUNTER 2025-05-09 06:14 | Day surgery (SDC) | payer MEDICAID, SELFPAY ==
[2025-05-09] VITALS (11 sets, daily range): BP systolic 88–115; BP diastolic 46–56; BMI 26.1
[2025-05-09] MEDS: NSS 500 IV (06:40)
[2025-05-09 06:52] LABS: Hematocrit 30.0 % (37.0-47.0); Hemoglobin 9.9 g/dL (12.0-16.0); Mean Corp Hgb Conc. 33.0 g/dL (33.0-37.0); Mean Corpuscular Volume 94.9 fL (81.0-99.0); Platelet Count 149 10^3/uL (130-400); Red Cell Dist. Width 13.3 % (11.5-14.5)
[2025-05-09 07:05] LABS: Glucose - Point of Care 156 mg/dl (70-99)
[2025-05-09 07:09] LABS: INR 1.00; PT 13.7 Sec (11.4-14.6)
[2025-05-09 07:10] LABS: APTT 29.1 Sec (23.4-35.0)
[2025-05-09 07:39] LABS: HCG, Serum Qualitative Screen Negative
[2025-05-09 07:51] LABS: Blood Urea Nitrogen 12 mg/dl (7-17); Calcium 8.9 mg/dl (8.4-10.2); Carbon Dioxide 33 mmol/L (22-30); Chloride 94 mmol/L (98-107); Estimated Creatinine Clearance 13 ml/min; Glucose 142 mg/dl (70-99); Potassium 3.8 mmol/L (3.5-5.1); Sodium 135 mmol/L (135-145); eGFR 11.47
--- NOTE | 2025-05-09 08:37 | W.SUR.POST ---
Surgical Immediate Post Op
Note
Pre Op Diagnosis: ESRD
Post Op Diagnosis: ESRD
Procedure Performed: BL UE diagnostic venogram, central venogram
Primary Surgeon: Jai
Anesthesia: local and sedation
Estimated Blood Loss:
Fluids: see anesthesia flow sheet
Drains/Shunts: none
Specimens/Cultures: none
Doppler/Duplex/Angio (Y/N): Y
Complications: none
Operative Findings: open vein amendable to av graft creation
[2025-05-09 09:07] LABS: Glucose - Point of Care 124 mg/dl (70-99)
--- NOTE | 2025-05-09 10:44 | OR.RPT ---
Operative Report
Operative Report
PROCEDURE DATE: 05/09/2025
Preoperative diagnosis:
1. End-stage renal disease on hemodialysis.
2. Central venous stenoses/occlusions.
3. Failed prior AV accesses.
Postoperative diagnosis: Same
Procedure:
1. Duplex assisted cannulation of right brachial vein.
2. Right upper extremity ascending venogram and central venogram.
3. Duplex assisted cannulation of left upper extremity cephalic vein.
4. Left upper extremity venogram and central venogram.
Surgeon: Vergara
Litigation Counsel: None
Complications: None
Anesthesia: Local, sedation
Fluoroscopy:
4.2 min
31 mGy
10.35 gy.cm2
Indications for procedure:
Failed multiple AV accesses. Central venous stenoses and occlusions bilaterally. Brought for diagnostic venography, possible right central venous angioplasty and/or stenting if could improve outflow for AV access upcoming.
Description of procedure:
Patient was identified, brought to the operating room. Placed on the table in the supine position. After the adequate administration of anesthesia, the patient was prepped and draped in the standard surgical fashion. A standard preoperative
timeout was undertaken and everybody was in agreement with the plan.
The right brachial vein was punctured just distal to the antecubital fossa under direct duplex ultrasound guidance with a micropuncture kit. A 5 [place] sheath was then advanced over a 0.035 inch wire. 3000's of intravenous heparin was
administered. Ascending venogram was obtained that demonstrated patent brachial vein through the upper arm. Contrast appeared to get held up more centrally. However at this point I exchanged over a 0.035 inch wire for a glide catheter that was
advanced into the subclavian vein. Central venogram demonstrated occlusion of the subclavian vein with multiple formed collaterals around it. I tried multiple times with a flopping of hydrophilic wire and the glide catheter to cross the occlusion.
However despite multiple attempts was unable to do so. Delayed imaging appeared to demonstrate patent superior vena cava.
At this point I then withdrew my wires and catheters, I turned my attention to the left side. Under direct duplex assisted guidance I was able to puncture the cephalic vein in the distal upper arm in a central facing direction with micropuncture
kit. Note this was the outflow from the fistula. And on duplex it appeared patent. However it was not pulsatile and there was no thrill in it. I now advanced a micropuncture sheath and through this micropuncture sheath obtained a left upper
extremity venogram and a central venogram. This demonstrated patent cephalic outflow vein. Patent cephalic arch. Patent axillary/subclavian vein beyond the occluded stent. Therefore at this point I felt that the issue here was likely due to an
anastomotic issue. This was a recurrent issue and I felt therefore that likely this was not salvageable with endovascular technique. In addition there was a little bit of wall associated thrombus in the cephalic vein in the vicinity of the
puncture site. Therefore I felt that repeat intervention on this particular fistula may not be of benefit from an endovascular perspective. I felt that revision with improved arterial inflow with an interposition graft would not be ideal. Given
that the central veins were open on central venogram from this aspect (slight stenosis around the catheter in the left brachiocephalic vein, but otherwise patent flow through to the vena cava and right atrium) hopefully AV access in the left arm
would be functional. At this point the right sided sheath and left sided micropuncture sheath were withdrawn and manual pressure applied to both puncture sites. Hemostasis was achieved. Manual pressure on the left side was purposefully on the
audiometric technician side to avoid thrombosis of the cephalic outflow vein given low flow into it. I confirmed with ultrasound upon completion of manual pressure that the vein was still patent. The patient tolerated the procedure well.
== END 2025-05-09 10:45 | disposition home or self-care (01) ==
LOC: CATH 06:14
PROVIDERS: ATTENDING PHYSICIAN Surgery Vascular Surgery; PRIMARYCARE PHYSICIAN Physician Assistant
DX: T82.858D Stenosis of other vascular prosthetic devices, implants and grafts, subsequent encounter (principal); Y83.2 Surgical operation with anastomosis, bypass or graft as the cause of abnormal reaction of the patient, or of later complication, without mention of misadventure at the time of the procedure; E11.22 Type 2 diabetes mellitus with diabetic chronic kidney disease; I12.0 Hypertensive chronic kidney disease with stage 5 chronic kidney disease or end stage renal disease; N18.6 End stage renal disease; Z99.2 Dependence on renal dialysis; Z90.5 Acquired absence of kidney; K21.9 Gastro-esophageal reflux disease without esophagitis
CPT/HCPCS: 36901; 80048; 82962; 84703; 85027; 85610; 85730; 86850; 86900; 86901; C1769; C1887; C1894; Q9967

== ENCOUNTER 2025-05-16 06:08 | Day surgery (SDC) | payer MEDICAID, SELFPAY ==
--- NOTE | 2025-05-14 14:12 | PTCARENOTE ---
Abn ECG, Dr. Sharp notified, no additional interventions required.
[2025-05-16] VITALS (14 sets, daily range): BP systolic 87–102; BP diastolic 46–71
[2025-05-16] MEDS: BACTROBAN NASAL 1 GRAM NASAL (07:17)
[2025-05-16] MEDS: PERIDEX 0.12% ORAL RINSE 15 ML PO (07:17)
[2025-05-16] MEDS: NSS 500 IV (07:18)
[2025-05-16 08:19] LABS: Hematocrit 25.2 % (37.0-47.0); Hemoglobin 8.3 g/dL (12.0-16.0); Mean Corp Hgb Conc. 32.9 g/dL (33.0-37.0); Mean Corpuscular Volume 94.7 fL (81.0-99.0); Platelet Count 148 10^3/uL (130-400); Red Cell Dist. Width 14.4 % (11.5-14.5)
[2025-05-16 08:33] LABS: Blood Urea Nitrogen 13 mg/dl (7-17); Calcium 8.5 mg/dl (8.4-10.2); Carbon Dioxide 30 mmol/L (22-30); Chloride 94 mmol/L (98-107); Glucose 118 mg/dl (70-99); Potassium 3.6 mmol/L (3.5-5.1); Sodium 131 mmol/L (135-145); eGFR 11.19
[2025-05-16 08:59] LABS: INR 1.12; PT 14.9 Sec (11.4-14.6)
[2025-05-16 09:00] LABS: APTT 29.1 Sec (23.4-35.0)
--- NOTE | 2025-05-16 09:00 | W.SUR.POST ---
Surgical Immediate Post Op
Note
Pre Op Diagnosis: End-stage renal disease
Post Op Diagnosis: Same
Procedure Performed: Left upper extremity revision AVF with graft
Primary Surgeon: Jai
Secondary Surgeons: Blaise HALL
Anesthesia: LMA
Estimated Blood Loss:
Fluids: See anesthesia flowsheet
Drains/Shunts: None
Specimens/Cultures: None
Doppler/Duplex/Angio (Y/N): Y
Complications: None
Operative Findings: Palpable thrill
--- NOTE | 2025-05-16 10:48 | OR.RPT ---
Operative Report
Operative Report
PROCEDURE DATE: 05/16/2025
Preoperative diagnosis:
1. End-stage renal disease on hemodialysis.
2. Multiple failed upper extremity accesses.
Postoperative diagnosis: Same
Procedure: Revision of left upper extremity brachiocephalic arteriovenous fistula with interposition graft using 6 mm bovine carotid graft.
Surgeon: Jai
Production Artist: YARIEL Welsh, required for all aspects of procedure including assistance with traction/countertraction, following suture line, assistance with closure.
Complications: None
Anesthesia: General
Indications for procedure:
Multiple failed AV accesses. Most recently left upper extremity brachiocephalic arteriovenous fistula. Was working for some time. Had recurrent anastomotic or perianastomotic stenoses which were several times angioplastied. Subsequently the
fistula was noted to be occluded. However when I looked with an ultrasound and did a venogram myself, the outflow vein appeared patent. There was no thrombus. Therefore I felt that a revision here might have been warranted in order to avoid more
complex AV access procedures. Risk/benefits/alternatives were fully discussed. Of note I had performed a left upper extremity venogram and central venogram confirming that the cephalic vein in the upper arm (the remainder of the vein) and the
cephalic arch and subclavian vein were all patent.
Description of procedure:
Patient was identified brought to the operating room placed on the table in supine position. After the adequate administration of anesthesia she was prepped and draped in the standard surgical fashion. A standard preoperative timeout was
undertaken and everybody was in agreement the plan. A longitudinal incision was made in the left distal upper arm just to the level of the antecubital fossa overlying the pulsation of the artery. This was actually an incision between 2 scarred
areas (between the antecubital incision for the brachiocephalic fistula creation, and the prior incision for an AV graft she had had prior to that). This incision was carried through skin subcutaneous tissue with the electrocautery. I then
dissected using sharp Metzenbaum scissor. There was some scar tissue, but I was able to identify the segment of artery that was not scarred. Carefully circumferentially dissected and a vessel loop passed around it proximally distally.
Now I made an incision in the distal upper arm in the more central aspect overlying the biceps area. This was where I had marked using an ultrasound preoperatively the cephalic vein where it looked good. This incision was now carried through skin
subcutaneous tissue. I now dissected through some scar tissue and then isolated the cephalic vein. I carefully dissected approximately distally circumferentially and passed a vessel loop around it. At this point I created a subcutaneous tunnel
between the 2 incision sites (a relatively short tunnel) and passed an umbilical tape through here.
Now I elected to use a bovine carotid graft due to multiple AV accesses in his arms and my concern for graft infections. A 6 mm bovine carotid graft (Artegraft) was selected. I now gave the patient 3000 units of intravenous heparin. I then Yolanda
looped and tightened my Vesseloops on the artery proximally distally. An arteriotomy was made with 11 blade and extended using a [place]one scissor. I made sure to not make the arteriotomy too big trying to stay about 4 to 5 mm at most. The graft was
slightly oversized at 6 mm, but I was able to fashion an anastomosis in end-to-side fashion using a running 6-0 Prolene suture. I completed and then tied down the suture line. Next I released flow in the [place] artery. There is good pulsatile
flow now into the graft. There is good pulsation of her radial pulse at the wrist.
Now I tunneled this graft through the short tunnel that I had pretty created in the subcutaneous space. I had marked the anterior surface to avoid any kinking or twisting as I tunneled it. There is excellent pulsatile flow in the graft. I clamped
the graft. Now, I ligated the cephalic vein distally in my field (close to the prior brachiocephalic anastomosis). This was done with a silk suture ligature as well as some clips. I then transected it just beyond the silk suture ligature. Note I
placed a bulldog clamp on the other end of the outflow of the cephalic vein so as to prevent backbleeding. The vein lumen here looks very nice and clean and reasonably healthy. Therefore at this point I trimmed the graft, and sewed an end-to-end
anastomosis (slightly spatulating the vein distally) using a running 6-0 Prolene suture. Prior to completing and tying down my suture line I backbled the cephalic vein, and then flushed out the graft. I then completed and tied down my suture line.
Clamps were released. There was good pulsatile flow/thrill in the graft. Hemostasis was then meticulously achieved. Protamine was given to reverse the heparin. Now we closed in layers using interrupted 3-0 Vicryl deep dermal layer, followed by
4-0 Monocryl running subcuticular stitch. Dermabond was applied. The patient tolerated the procedure well. She was transported recovery room in stable condition.
[2025-05-16 10:53] LABS: Glucose - Point of Care 197 mg/dl (70-99)
[2025-05-16] MEDS: SUBLIMAZE 25 MCG IV (11:30)
[2025-05-16] MEDS: TYLENOL 650 MG PO (13:30)
== END 2025-05-16 13:49 | disposition home or self-care (01) ==
LOC: CATH 06:08
PROVIDERS: ATTENDING PHYSICIAN Surgery Vascular Surgery; FAMILY PHYSICIAN Family Medicine
DX: T82.858D Stenosis of other vascular prosthetic devices, implants and grafts, subsequent encounter (principal); Y83.2 Surgical operation with anastomosis, bypass or graft as the cause of abnormal reaction of the patient, or of later complication, without mention of misadventure at the time of the procedure; E11.22 Type 2 diabetes mellitus with diabetic chronic kidney disease; I12.0 Hypertensive chronic kidney disease with stage 5 chronic kidney disease or end stage renal disease; N18.6 End stage renal disease; Z99.2 Dependence on renal dialysis; Z79.84 Long term (current) use of oral hypoglycemic drugs; Z79.899 Other long term (current) drug therapy
CPT/HCPCS: 36832; 80048; 82962; 85027; 85610; 85730; 86850; 86900; 86901

== ENCOUNTER → 2025-05-18 10:49 | Outpatient (REF) | payer MEDICAID, SELFPAY ==
[2025-05-18 12:07] LABS: Hematocrit 28.8 % (37.0-47.0); Hemoglobin 9.3 g/dL (12.0-16.0); Mean Corp Hgb Conc. 32.3 g/dL (33.0-37.0); Mean Corpuscular Volume 99.7 fL (81.0-99.0); Nucleated Red Blood Cells % 0 %; Platelet Count 141 10^3/uL (130-400); Red Cell Dist. Width 14.4 % (11.5-14.5)
[2025-05-18 13:09] LABS: Ferritin 623.0 ng/ml (6.24-137)
[2025-05-18 13:24] LABS: Vitamin B12 906 pg/ml (239-931)
[2025-05-18 13:41] LABS: Iron 52 ug/dl (37-170)
== END ==
LOC: REG 10:49
PROVIDERS: ATTENDING PHYSICIAN Physician Assistant
DX: E03.9 Hypothyroidism, unspecified (principal); D64.9 Anemia, unspecified
CPT/HCPCS: 36415; 82607; 82728; 83540; 84443; 85025

== ENCOUNTER → 2025-06-18 06:50 | Outpatient (REF) | payer MEDICAID, SELFPAY ==
[2025-06-18 07:56] LABS: Hematocrit 36.2 % (37.0-47.0); Hemoglobin 11.6 g/dL (12.0-16.0); Mean Corp Hgb Conc. 32.0 g/dL (33.0-37.0); Mean Corpuscular Volume 95.5 fL (81.0-99.0); Nucleated Red Blood Cells % 0 %; Platelet Count 156 10^3/uL (130-400); Red Cell Dist. Width 14.0 % (11.5-14.5)
== END ==
LOC: RAD 06:50
PROVIDERS: ATTENDING PHYSICIAN Physician Assistant; FAMILY PHYSICIAN Physician Assistant
DX: L98.8 Other specified disorders of the skin and subcutaneous tissue (principal); D63.8 Anemia in other chronic diseases classified elsewhere
CPT/HCPCS: 36415; 85025; 93990